=== PATIENT | female | born 1940 | race Caucasian/White ===

== ENCOUNTER 2016-03-23 01:37 | Emergency (ER) | payer MEDICARE ==
[~2016-03-23] VITALS: Ht 170.2 cm; Wt 77.1 kg
[~2016-03-23 01:37] MED LIST: CELE200C PO; CYAN10002 IJ; DONE5TAB7 PO; ESTR2TAB PO; FOLI1TAB16 PO; METH2.5T PO; MULT1CAP17 PO; RAMI5CAP PO; SIMV40TA3 PO
[2016-03-23 01:40] VITALS: BP 101/55
[2016-03-23] MEDS ORDERED: IV NORMAL SALINE 500ML BAG 500 ML IV ONE (02:15)
[2016-03-23] MEDS ORDERED: ONDANSETRON PF 4 MG/2 ML VIAL. IV ONE (02:15)
[2016-03-23 03:12] LABS: BASO # 0.2 x10^3/uL (0.0-0.2); BASO % 1 % (0-3); EOS % 0 % (0-3); HEMATOCRIT 45.2 % (36.0-47.0); HEMOGLOBIN 14.2 g/dL (12.0-15.5); LYMPH # 1.1 x10^3/uL (1.0-4.8); LYMPH % 7 % (24-48); MEAN CORPUSCULAR HEMOGLOBIN 32 pg (25-35); MEAN CORPUSCULAR HGB CONC 31 g/dL (31-37); MEAN CORPUSCULAR VOLUME 102 fL (79-100); MONO % 7 % (0-9); NEUT % 85 % (31-73); PLATELET COUNT 341 x10^3/uL (140-400); RED BLOOD COUNT 4.43 x10^6/uL (3.50-5.40); WHITE BLOOD COUNT 16.5 x10^3/uL (4.0-11.0)
--- NOTE | 2016-03-23 03:14 | PHYS DOC ---
Past Medical History Past Medical History: Arthritis, Dementia, High Cholesterol, Hypertension Additional Past Medical Histor: GOUT Past Surgical History: Cholecystectomy, Hysterectomy, Tonsillectomy Alcohol Use: None Drug Use: None Adult General Chief Complaint Chief Complaint: NAUSEA/VOMITING/DIARRHA HPI HPI 75-year-old female who states she's had worsening nausea and vomiting and a brief episode of syncope after having a large bowel movement at the [facility]. She denies any abdominal pain. She denies any fever or chills. Patient is currently alert and oriented and does not complain of any specific complaints at this time. She denies hitting her head. She denies any chest pain or shortness of breath. Review of Systems Review of Systems Constitutional: Denies fever or chills [] Eyes: Denies change in visual acuity, redness, or eye pain [] HENT: Denies nasal congestion or sore throat [] Respiratory: Denies cough or shortness of breath [] Cardiovascular: No additional information not addressed in HPI [] GI: Denies abdominal pain, has nausea, has vomiting, bloody stools or diarrhea [ ] : Denies dysuria or hematuria [] Musculoskeletal: Denies back pain or joint pain [] Integument: Denies rash or skin lesions [] Neurologic: Denies headache, focal weakness or sensory changes [] Endocrine: Denies polyuria or polydipsia [] Current Medications Current Medications Current Medications Medications (Trade) Dose Ordered Sig/Shirin Start Time Stop Time Status Last Admin Dose Admin Ondansetron HCl (Zofran) 4 mg 1X ONCE 03/23/16 02:15 03/23/16 02:16 DC 03/23/16 02:39 4 MG Sodium Chloride (Iv Sodium Chloride 0.9% 500ml Bag) 500 ml @ 500 mls/hr 1X ONCE 03/23/16 02:15 03/23/16 03:14 DC 03/23/16 02:40 500 MLS/HR Allergies Allergies Allergies Coded Allergies Type Severity Reaction Last Updated Verified No Known Drug Allergies 05/03/13 No Physical Exam Physical Exam Constitutional: Well developed, well nourished, no acute distress, non-toxic appearance. [] HENT: Normocephalic, atraumatic, bilateral external ears normal, oropharynx moist, no oral exudates, nose normal. [] Eyes: PERRLA, EOMI, conjunctiva normal, no discharge. [] Neck: Normal range of motion, no tenderness, supple, no stridor. [] Cardiovascular:Heart rate regular rhythm, no murmur [] Lungs & Thorax: Bilateral breath sounds clear to auscultation [] Abdomen: Bowel sounds normal, soft, no tenderness, no masses, no pulsatile masses. [] Skin: Warm, dry, no erythema, no rash. [] Back: No tenderness, no CVA tenderness. [] Extremities: No tenderness, no cyanosis, no clubbing, ROM intact, no edema. [] Neurologic: Alert and oriented X 3, normal motor function, normal sensory function, no focal deficits noted. [] Psychologic: Affect normal, judgement normal, mood normal. [] Current Patient Data Vital Signs Vital Signs Date Time Temp Pulse Resp B/P Pulse Ox O2 Delivery O2 Flow Rate FiO2 03/23/16 01:40 98.4 70 18 101/55 97 Room Air 98.4 Lab Values Laboratory Tests Test 03/23/16 02:55 Sodium Level 139mmol/L (136-145) Potassium Level 5.0mmol/L (3.5-5.1) Chloride Level 104mmol/L (98-107) Carbon Dioxide Level 15mmol/L (21-32) L Anion Gap 20 (6-14) H Blood Urea Nitrogen 31mg/dL (7-20) H Creatinine 1.4mg/dL (0.6-1.0) H Estimated GFR (Cockcroft-Gault) 36.6 Glucose Level 111mg/dL (70-99) H Calcium Level 9.1mg/dL (8.5-10.1) Laboratory Tests 03/23/16 02:55 EKG EKG EKG as interpreted by me shows a sinus rhythm with a rate of 68 bpm. There are no acute ST findings. Intervals are normal. There is no ectopy. Radiology/Procedures Radiology/Procedures [] Course & Med Decision Making Course & Med Decision Making Pertinent Labs and Imaging studies reviewed. (See chart for details) This 75-year-old female had a likely vagal event after having a large bowel movement. The plan will be to bolus the patient with IV fluids and nausea meds and check routine lab work. I will then give the patient meal and some drink. If her laboratory workup is unrevealing she will be safely to be discharged back to the [facility] from which [facility]. Her laboratory workup shows a slightly elevated BUN/creatinine ratio. For this an IV fluid bolus was given. The patient was successfully by mouth challenged with a meal and oral fluids. I'll be discharging her home with Zofran and have her follow up closely with her primary care doctor. I believe her symptoms are likely related to a vasovagal event. Dragon Disclaimer Dragon Disclaimer This electronic medical record was generated, in whole or in part, using a voice recognition dictation system. Departure Departure Impression: Primary Impression: Vaso vagal episode Additional Impression: Nausea & vomiting Disposition: HOME, SELF-CARE Condition: STABLE Referrals: GISSELLE CHO MD (PCP) Patient Instructions: Nausea and Vomiting, [id number] Additional Instructions: Please follow up with your primary doctor in the next 2-3 days. Take your zofran as prescribed. Continue to drink plenty of fluids. Return to the ER if you develop any worsening of your symptoms. Scripts Ondansetron Hcl (Zofran)4 Mg Tablet4 Mg PO BID PRN NAUSEA/VOMITING #10 TAB Prov:SADIA DELATORRE DO 03/23/16 Problem Qualifiers SADIA DELATORRE DO Mar 23, 2016 03:14
[2016-03-23 03:20] LABS: CALCIUM 9.1 mg/dL (8.5-10.1); CREATININE 1.4 mg/dL (0.6-1.0); GFR 36.6
[2016-03-23] MEDS ORDERED: ONDA4TAB7 PO (03:45)
[2016-03-23 04:31] LABS: PLT ESTIMATE ADEQUATE (ADEQUATE)
[2016-03-23 04:32] LABS: TOXIC VACUOLATION SLIGHT
[2016-03-23 04:34] LABS: ANISOCYTOSIS SLIGHT
--- NOTE | 2016-03-23 11:40 | EKG ---
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
== END 2016-03-23 04:35 | disposition home or self-care (01) ==
LOC: ER 01:37
DX: R11.2 Nausea with vomiting, unspecified (principal); R55 Syncope and collapse; F03.90 Unspecified dementia, unspecified severity, without behavioral disturbance, psychotic disturbance, mood disturbance, and anxiety; E78.00 Pure hypercholesterolemia, unspecified; I10 Essential (primary) hypertension; M19.90 Unspecified osteoarthritis, unspecified site; Z90.49 Acquired absence of other specified parts of digestive tract; Z90.710 Acquired absence of both cervix and uterus
CPT/HCPCS: 36415; 80048; 84484; 85007; 85027; 93005; 96361; 96374; 99285; J2405; J7040

== ENCOUNTER → 2016-12-24 | Outpatient (CLI) | payer MEDICARE ==
[~2016-12-24] MED LIST changes: +IOHEXOL 300 MG/ML 100ML VIAL. IV ONE; +ONDA4TAB7 PO
--- NOTE | 2016-12-24 14:04 | KCIC ---
Examination: CT chest with IV contrast HISTORY: History of atelectasis, pneumonia, sepsis. COMPARISON: None available TECHNIQUE: Axial CT images of the chest were performed with IV contrast. Coronal and sagittal reformats are performed Exposure: One or more of the following individualized dose reduction techniques were utilized for this examination: 1. Automated exposure control 2. Adjustment of the mA and/or kV according to patient size 3. Use of iterative reconstruction technique FINDINGS: The visualized thyroid gland grossly appears unremarkable The central airways are patent Coronary artery calcifications No evidence of pericardial effusion. There is some filling defects identified in the right upper lobe pulmonary arterial branches. Moderate size right pleural effusion and small left pleural effusion identified. Consolidation changes identified in the right lung base likely pneumonia or atelectasis. Mild left lung base airspace opacities likely atelectasis or infiltrate. Mild decreased attenuation noted throughout the liver likely hepatic steatosis. The visualized adrenal glands grossly appears unremarkable Small hiatal hernia. Moderate degenerative changes thoracic spine. IMPRESSION: 1. Some filling defects identified in the right upper lobe pulmonary arterial branches and possibly the left upper lobe pulmonary arterial branches, suspicious for pulmonary emboli, please note that this is not a CT angiogram. Recommend CT angiogram for further evaluation. 2. Moderate size right pleural effusion and small left pleural effusion with bibasilar lung consolidation changes likely pneumonia or atelectasis. 3. Coronary artery calcifications. Report called to ordering physician at time of dictation. Electronically signed by: Evelio Bustos MD (12/24/2016 2:01 PM) [id number]
== END | disposition home or self-care (01) ==
LOC: KCIC CT 10:15
PROVIDERS: ATTEND Family Medicine
DX: I25.10 Atherosclerotic heart disease of native coronary artery without angina pectoris (principal); J44.9 Chronic obstructive pulmonary disease, unspecified; J18.1 Lobar pneumonia, unspecified organism; J90 Pleural effusion, not elsewhere classified; R93.49 Abnormal radiologic findings on diagnostic imaging of other urinary organs; Z87.01 Personal history of pneumonia (recurrent)
CPT/HCPCS: 71260; 82565; Q9967

== ENCOUNTER → 2016-12-31 | Outpatient (CLI) | payer MEDICARE ==
[~2016-12-31] MED LIST changes: +CONTRAST GIVEN MC PRN; -IOHEXOL 300 MG/ML 100ML VIAL. IV ONE; +IOHEXOL 300 MG/ML 75 ML VIAL IV ONE
--- NOTE | 2016-12-31 10:06 | RAD ---
Examination: CT angiogram of the chest. History: History of recent pulmonary emboli comparison: 12/24/2016 Technique: CT angiogram mismatches were performed with IV contrast. Coronal sagittal 3-D MIP reformats are performed PQRS Compliance Statement: One or more of the following individualized dose reduction techniques were utilized for this examination: 1. Automated exposure control 2. Adjustment of the mA and/or kV according to patient size 3. Use of iterative reconstruction technique Findings: The visualized thyroid gland grossly appears unremarkable. Diffuse coronary artery calcifications identified. Mild cardiomegaly. There is no evidence of filling defect identified in the main pulmonary artery trunk. There is filling defect identified in the distal right lobar pulmonary arterial branch extending into the right upper lobe distal pulmonary arterial branches is best visualized from series 3 image 44 2 image 37 Examination limited due to mild motion artifact. There is no evidence of filling defect identified in the left pulmonary artery and its branches. The evaluation of distal segmental branches is limited due to motion artifact. Moderate size right pleural effusion with right lung base consolidation likely pneumonia or atelectasis. Small left pleural effusion is identified. Linear airspace opacity identified in the right middle lobe of the lung likely atelectasis or infiltrate. The visualized spleen, adrenals grossly appears unremarkable. There is mild decreased attenuation noted throughout the liver likely hepatic steatosis. Small hiatal hernia. Moderate degenerative changes thoracic spine. Impression: 1. Filling defects identified in the distal right pulmonary artery extending into the peripheral branches could be age indeterminate pulmonary emboli. Examination limited due to motion artifact. 2. Moderate right, small left pleural effusions with right lung base consolidation likely pneumonia or atelectasis. Mild linear airspace opacity identified in the right middle lobe of the lung likely atelectasis or infiltrate. 3. Coronary artery calcifications. 4. Mild hepatic steatosis. 5. Small hiatal hernia.
== END | disposition home or self-care (01) ==
LOC: CT 08:35
PROVIDERS: ATTEND Family Medicine
DX: I26.99 Other pulmonary embolism without acute cor pulmonale (principal); I25.10 Atherosclerotic heart disease of native coronary artery without angina pectoris; K44.9 Diaphragmatic hernia without obstruction or gangrene; J90 Pleural effusion, not elsewhere classified; Z86.711 Personal history of pulmonary embolism
CPT/HCPCS: 71275; Q9967

== ENCOUNTER 2018-06-06 17:53 | Inpatient (IN) | payer MEDICARE, OTHER ==
[~2018-06-06] VITALS: Ht 165.1 cm; Wt 88.5 kg
[~2018-06-06 17:53] MED LIST changes: +ACET325T9 PO; +ALLO300T PO; +APIX5TAB PO; +ASPI-630 PO; +CHOL10003 PO; -CONTRAST GIVEN MC PRN; +CRAN400T5 PO; +DONE10TA7 PO; +ESCITALOPRAM OX20 MG PO; +FURO-68 PO; +GABA300C18 PO; -IOHEXOL 300 MG/ML 75 ML VIAL IV ONE; +IPRA3AMP29 NEB; +MAGN400T3 PO; +MELA3TAB2 PO; +POTA20TA82 PO; -RAMI5CAP PO; +RAMI5CAP50 PO; +RISP0.2519 PO
[2018-06-06 18:46] LABS: BILIRUBIN,URINE NEGATIVE (NEG); CLARITY,URINE TURBID; COLOR,URINE YELLOW
[2018-06-06 18:47] LABS: BACTERIA,URINE MANY /HPF (0-FEW); HYALINE CASTS, URINE FEW /HPF; NITRITE,URINE POSITIVE (NEG); PROTEIN,URINE 100 mg/dL (NEG-TRACE); RBC,URINE OCC /HPF (0-2); SQUAMOUS EPITHELIAL CELL,UR FEW /LPF; UROBILINOGEN,URINE 0.2 mg/dL (0.2 mg/dL); WBC,URINE TNTC /HPF (0-4)
--- NOTE | 2018-06-06 18:50 | PHYS DOC ---
Past Medical History Past Medical History: Arthritis, Dementia, High Cholesterol, Hypertension Additional Past Medical Histor: GOUT Past Surgical History: Cholecystectomy, Hysterectomy, Tonsillectomy Alcohol Use: None Drug Use: None Adult General Chief Complaint Chief Complaint: OTHER COMPLAINTS HPI HPI Patient is a 77 year old was sent here from the care home because she has been confused, sleeping more for the last two days. Patient otherwise, denied any problem. She was able to talk and answer questions appropriately. She denied any chest pain, no abdominal pain, no nausea or vomiting. Patient denied any headache, no fever. She denied any injury. long term reported that she has not been eating much either. Review of Systems Review of Systems Constitutional: Denies fever or chills [] Eyes: Denies change in visual acuity, redness, or eye pain [] HENT: Denies nasal congestion or sore throat [] Respiratory: Denies cough or shortness of breath [] Cardiovascular: No additional information not addressed in HPI [] GI: Denies abdominal pain, nausea, vomiting, bloody stools or diarrhea [] : Denies dysuria or hematuria [] Musculoskeletal: Denies back pain or joint pain [] Integument: Denies rash or skin lesions [] Neurologic: Denies headache, focal weakness or sensory changes [] Endocrine: Denies polyuria or polydipsia [] All other systems were reviewed and found to be within normal limits, except as documented in this note. Current Medications Current Medications Current Medications Medications (Trade) Dose Ordered Sig/Shirin Start Time Stop Time Status Last Admin Dose Admin Ceftriaxone Sodium (Rocephin) 1 gm 1X ONCE 06/06/18 19:15 06/06/18 19:16 DC 06/06/18 19:48 1 GM Allergies Allergies Allergies Coded Allergies Type Severity Reaction Last Updated Verified No Known Drug Allergies 05/03/13 No Physical Exam Physical Exam Constitutional: Well developed, well nourished, no acute distress, non-toxic appearance. Patient appeared somnolent. HENT: Normocephalic, atraumatic, bilateral external ears normal, oropharynx is dried, no oral exudates, nose normal. [] Eyes: PERRLA, EOMI, conjunctiva normal, no discharge. [] Neck: Normal range of motion, no tenderness, supple, no stridor. [] Cardiovascular:Heart rate regular rhythm, no murmur [] Lungs & Thorax: Bilateral breath sounds clear to auscultation [] Abdomen: Bowel sounds normal, soft, no tenderness, no masses, no pulsatile masses. [] Skin: Warm, dry, no erythema, no rash. [] Back: No tenderness, no CVA tenderness. [] Extremities: No tenderness, no cyanosis, no clubbing, ROM intact, no edema. [] Neurologic: Alert and oriented to place and person, normal motor function, normal sensory function, no focal deficits noted. Psychologic: Affect normal, judgement normal, mood normal. [] Current Patient Data Vital Signs Vital Signs Date Time Temp Pulse Resp B/P (MAP) Pulse Ox O2 Delivery O2 Flow Rate FiO2 06/06/18 19:58 58 18 110/62 (78) 99 Nasal Cannula 3.0 06/06/18 17:53 97.7 97.7 Lab Values Laboratory Tests Test 06/06/18 18:25 06/06/18 20:00 Urine Collection Type U cath Urine Color Yellow Urine Clarity Turbid Urine pH 6.0 Urine Specific [place] >=1.030 Urine Protein 100 mg/dL (NEG-TRACE) Urine Glucose (UA) Negative mg/dL (NEG) Urine Ketones (Stick) Negative mg/dL (NEG) Urine Blood Large (NEG) Urine Nitrite Positive (NEG) Urine Bilirubin Negative (NEG) Urine Urobilinogen Dipstick 0.2 mg/dL (0.2 mg/dL) Urine Leukocyte Esterase Large (NEG) Urine RBC Occ /HPF (0-2) Urine WBC Tntc /HPF (0-4) Urine Squamous Epithelial Cells Few /LPF Urine Bacteria Many /HPF (0-FEW) Urine Hyaline Casts Few /HPF Urine Mucus Slight /LPF White Blood Count 10.5 x10^3/uL (4.0-11.0) Red Blood Count 4.17 x10^6/uL (3.50-5.40) Hemoglobin 12.9 g/dL (12.0-15.5) Hematocrit 39.6 % (36.0-47.0) Mean Corpuscular Volume 95 fL (79-100) Mean Corpuscular Hemoglobin 31 pg (25-35) Mean Corpuscular Hemoglobin Concent 33 g/dL (31-37) Red Cell Distribution Width 15.8 % (11.5-14.5) H Platelet Count 358 x10^3/uL (140-400) Neutrophils (%) (Auto) 77 % (31-73) H Lymphocytes (%) (Auto) 14 % (24-48) L Monocytes (%) (Auto) 7 % (0-9) Eosinophils (%) (Auto) 1 % (0-3) Basophils (%) (Auto) 0 % (0-3) Neutrophils # (Auto) 8.2 x10^3uL (1.8-7.7) H Lymphocytes # (Auto) 1.5 x10^3/uL (1.0-4.8) Monocytes # (Auto) 0.7 x10^3/uL (0.0-1.1) Eosinophils # (Auto) 0.1 x10^3/uL (0.0-0.7) Basophils # (Auto) 0.0 x10^3/uL (0.0-0.2) Sodium Level 144 mmol/L (136-145) Potassium Level 4.2 mmol/L (3.5-5.1) Chloride Level 102 mmol/L (98-107) Carbon Dioxide Level 30 mmol/L (21-32) Anion Gap 12 (6-14) Blood Urea Nitrogen 20 mg/dL (7-20) Creatinine 1.5 mg/dL (0.6-1.0) H Estimated GFR (Cockcroft-Gault) 33.6 BUN/Creatinine Ratio 13 (6-20) Glucose Level 125 mg/dL (70-99) H Calcium Level 8.6 mg/dL (8.5-10.1) Total Bilirubin 0.4 mg/dL (0.2-1.0) Aspartate Amino Transferase (AST) 20 U/L (15-37) Alanine Aminotransferase (ALT) 20 U/L (14-59) Alkaline Phosphatase 117 U/L (46-116) H Total Protein 7.5 g/dL (6.4-8.2) Albumin 2.4 g/dL (3.4-5.0) L Albumin/Globulin Ratio 0.5 (1.0-1.7) L Laboratory Tests 06/06/18 20:00 Laboratory Tests 06/06/18 20:00 EKG EKG [] Radiology/Procedures Radiology/Procedures [][facility] [address] [place] [address] IMAGING REPORT Signed PATIENT: JANEY MILLIGAN ACCOUNT: [id number] : 1940 LOCATION: ER AGE: 77 SEX: F EXAM STATUS: REG ER ORD. PHYSICIAN: THELMA FERNANDEZ DO REASON: confusion, AMS, on Eliquis PROCEDURE: CT HEAD WO CONTRAST Examination: CT HEAD WO CONTRAST History: confusion, AMS, on Eliquis Comparison/Correlation: 03/27/2016 CT head without contrast Findings: Axial images of the head were obtained without contrast. Atrophy is present. Bifrontal subdural hygromas are present. No intracranial hemorrhage, then shift, or mass effect. Bilateral maxillary sinus mucous retention cysts noted. Patchy opacification of ethmoid air cells noted. No depressed fracture or bony destructive finding. Impression: Chronic paranasal sinusitis. No intracranial hemorrhage. PQRS Compliance Statement: One or more of the following individualized dose reduction techniques were utilized for this examination: 1. Automated exposure control 2. Adjustment of the mA and/or kV according to patient size 3. Use of iterative reconstruction technique Electronically signed by: Tamir Bangura MD (06/06/2018 7:23 PM) [facility] DICTATED and SIGNED BY: TAMIR BANGURA MD DATE: 06/06/181922 Course & Med Decision Making Course & Med Decision Making Pertinent Labs and Imaging studies reviewed. (See chart for details) [] Dragon Disclaimer Dragon Disclaimer This electronic medical record was generated, in whole or in part, using a voice recognition dictation system. Departure Departure Impression: Primary Impression: UTI (urinary tract infection) Additional Impression: Altered mental status Disposition: ADMITTED INPATIENT Admitting Physician: Karmen Sánchez Condition: STABLE Referrals: JOSE M CALHOUN (PCP) Problem Qualifiers THELMA FERNANDEZ DO Jun 06, 2018 18:49
[2018-06-06] MEDS ORDERED: cefTRIAXone IV Push 1 GM VIAL. IVP ONE (19:15)
--- NOTE | 2018-06-06 19:26 | RAD ---
Examination: CT HEAD WO CONTRAST History: confusion, AMS, on Eliquis Comparison/Correlation: 03/27/2016 CT head without contrast Findings: Axial images of the head were obtained without contrast. Atrophy is present. Bifrontal subdural hygromas are present. No intracranial hemorrhage, then shift, or mass effect. Bilateral maxillary sinus mucous retention cysts noted. Patchy opacification of ethmoid air cells noted. No depressed fracture or bony destructive finding. Impression: Chronic paranasal sinusitis. No intracranial hemorrhage. PQRS Compliance Statement: One or more of the following individualized dose reduction techniques were utilized for this examination: 1. Automated exposure control 2. Adjustment of the mA and/or kV according to patient size 3. Use of iterative reconstruction technique Electronically signed by: Tamir Kessler MD (06/06/2018 7:23 PM) [facility]
[2018-06-06 20:07] LABS: BASO % 0 % (0-3); EOS # 0.1 x10^3/uL (0.0-0.7); EOS % 1 % (0-3); HEMATOCRIT 39.6 % (36.0-47.0); HEMOGLOBIN 12.9 g/dL (12.0-15.5); LYMPH # 1.5 x10^3/uL (1.0-4.8); LYMPH % 14 % (24-48); MEAN CORPUSCULAR HEMOGLOBIN 31 pg (25-35); MEAN CORPUSCULAR HGB CONC 33 g/dL (31-37); MEAN CORPUSCULAR VOLUME 95 fL (79-100); MONO # 0.7 x10^3/uL (0.0-1.1); MONO % 7 % (0-9); NEUT # 8.2 x10^3uL (1.8-7.7); NEUT % 77 % (31-73); PLATELET COUNT 358 x10^3/uL (140-400); RED BLOOD COUNT 4.17 x10^6/uL (3.50-5.40); RED CELL DISTRIBUTION WIDTH 15.8 % (11.5-14.5); WHITE BLOOD COUNT 10.5 x10^3/uL (4.0-11.0)
[2018-06-06 20:20] LABS: CALCIUM 8.6 mg/dL (8.5-10.1); CREATININE 1.5 mg/dL (0.6-1.0); GFR 33.6; POTASSIUM 4.2 mmol/L (3.5-5.1)
[2018-06-06 20:25] LABS: ALBUMIN 2.4 g/dL (3.4-5.0); ALBUMIN/GLOBULIN RATIO 0.5 (1.0-1.7); TOTAL BILIRUBIN 0.4 mg/dL (0.2-1.0); TOTAL PROTEIN 7.5 g/dL (6.4-8.2)
[2018-06-06] MEDS ORDERED: MORPHINE SULFATE 2 MG/ML VIAL. IV PRN (20:30)
[2018-06-06] MEDS ORDERED: TEMAZEPAM 7.5 MG CAPSULE PO PRN (20:30)
[2018-06-06] MEDS ORDERED: ACETAMINOPHEN 325 MG TABLET. PO PRN ×3 (20:30→20:45)
[2018-06-06] MEDS ORDERED: oxyCODONE IR 5 MG TABLET PO PRN (20:30)
[2018-06-06] MEDS ORDERED: CALCIUM CARBONATE 500 MG TAB.CHEW PO PRN (20:30)
[2018-06-06] MEDS ORDERED: BISACODYL 10 MG SUPP.RECT. PR PRN (20:30)
[2018-06-06] MEDS ORDERED: ONDANSETRON PF 4 MG/2 ML VIAL. IV PRN ×2 (20:30→20:45)
[2018-06-06] MEDS ORDERED: IV NORMAL SALINE 1000ML BAG 1,000 ML IV SCH (20:45)
[2018-06-06] MEDS ORDERED: NON FORMULARY ITEM (Melatonin 2 TAB) PO SCH (21:00)
[2018-06-06] MEDS ORDERED: CRANBERRY FRUIT 400 MG PO SCH (21:00)
[2018-06-06] MEDS: DOCUSATE SODIUM 100 MG CAPSULE. PO SCH (21:00)
[2018-06-06] MEDS: GABAPENTIN 300 MG CAPSULE. PO SCH (21:00)
--- NOTE | 2018-06-06 22:00 | NUR ---
The patient, JANEY MILLIGAN, 77 y/o, F admitted by CHELSY MONTENEGRO MD, was given written information regarding hospital policies, unit procedures and contact persons. Patient arrived via ED bed assisted by ED staff member. Valuables were checked and noted. No family present at patient bedside at this time. The patient is drowsy but wakes to name and answers questions. The patient is alert to self and place at this time. The patient denies pain or any other needs. This RN will continue to monitor the patient at this time.
[2018-06-06 22:15] VITALS: BP 98/40
[2018-06-06] MEDS: IPRATRPIUM/ALBUTEROL 0.5/2.5MG 3 ML NEBU. NEB SCH (22:45)
[2018-06-06] MEDS: IV 1/2 NORMAL SALINE 1,000 ML IV SCH (23:28)
--- NOTE | 2018-06-06 23:30 | NUR ---
This RN attempted to reach [facility], for further information on the patient's medical history and home medications. This RN called the number listed on the "face sheet" from [facility], , this RN was told that the number belonged to [facility]. this RN stated that a patient was received from [facility] and that this number and address was listed on the patient's "face sheet" that was brought with the patient from the [facility]. The RN at [facility] assured this RN that they had not sent any of their residents to the hospital. The [facility] RN suggested calling the [facility] at [phone]. This RN called the [facility] and they stated that none of their residents were sent to the hospital today either, the patient's name and birthday were not shared with [facility]. This RN then contacted the daughter to clarify which [facility] the patient resided at and asked for the phone number she had for [place], Lily, the patient's daughter and EDY, informed me that she has been at [facility] for two years and has not stayed at [facility] or [facility], despite the information given on the [facility] "Face Sheet". The daughter gave this RN the number [phone] for [facility]. This RN attempted to contact the [place] with the number provided by the daughter but this RN was unable to get through after multiple attempts. This RN will attempt to call in the morning and will continue to monitor the patient at this time.
[2018-06-07] MEDS: ANTI-COAG MONITOR BY PHARMACY. MC PRN (00:40)
[2018-06-07 03:04] VITALS: BP 117/50
[2018-06-07 05:46] LABS: BASO % 0 % (0-3); EOS # 0.1 x10^3/uL (0.0-0.7); EOS % 1 % (0-3); HEMATOCRIT 37.1 % (36.0-47.0); HEMOGLOBIN 12.3 g/dL (12.0-15.5); LYMPH # 1.3 x10^3/uL (1.0-4.8); LYMPH % 13 % (24-48); MEAN CORPUSCULAR HEMOGLOBIN 32 pg (25-35); MEAN CORPUSCULAR HGB CONC 33 g/dL (31-37); MEAN CORPUSCULAR VOLUME 95 fL (79-100); MONO # 0.5 x10^3/uL (0.0-1.1); MONO % 5 % (0-9); NEUT # 8.2 x10^3uL (1.8-7.7); NEUT % 81 % (31-73); PLATELET COUNT 315 x10^3/uL (140-400); RED BLOOD COUNT 3.91 x10^6/uL (3.50-5.40); RED CELL DISTRIBUTION WIDTH 15.9 % (11.5-14.5); WHITE BLOOD COUNT 10.2 x10^3/uL (4.0-11.0)
[2018-06-07 05:57] LABS: CALCIUM 8.4 mg/dL (8.5-10.1); CREATININE 1.2 mg/dL (0.6-1.0); GFR 43.4
[2018-06-07 07:00] VITALS: BP 112/42
[2018-06-07] MEDS: IPRATRPIUM/ALBUTEROL 0.5/2.5MG 3 ML NEBU. NEB SCH ×4 (07:21→19:47)
[2018-06-07 11:00] VITALS: BP 117/42
--- NOTE | 2018-06-07 11:11 | HP ---
ADMIT DATE: 06/06/2018 CHIEF COMPLAINT: Mental status change. HISTORY OF PRESENT ILLNESS: The patient is a pleasant 77-year-old female who resides in a skilled nursing. She developed mental status change. She has been sleeping more, was confused. She has not been eating or drinking, brought to the ER for evaluation. We noted that her labs showed her to have a urinary tract infection. She has got leukocyte esterase and too numerous to count white cells. She has now been admitted for IV fluids and IV antibiotics. PAST MEDICAL HISTORY: Previous UTIs, arthritis, dementia, hypertension, hyperlipidemia and gout. PAST SURGICAL HISTORY: Cholecystectomy, hysterectomy and tonsillectomy. ALLERGIES: None. FAMILY HISTORY: Coronary artery disease. SOCIAL HISTORY: She lives in a skilled nursing. She does not drink, smoke or take drugs. MEDICATIONS: Reviewed, please refer to the MRAD. She is on methotrexate, DuoNeb, Eliquis, simvastatin, aspirin, Tylenol, gabapentin, Risperdal, potassium, Lasix, magnesium, estradiol, vitamin and allopurinol. REVIEW OF SYSTEMS: Unable to obtain, the patient is too confused. PHYSICAL EXAMINATION: VITAL SIGNS: Temperature afebrile, pulse 92, respirations 18 and blood pressure 142/90. GENERAL: She is pleasantly confused. HEART: Normal S1 and S2. LUNGS: Clear. ABDOMEN: Soft. EXTREMITIES: Trace edema. SKIN: No rash. ENDOCRINE: No thyromegaly. LYMPHATICS: No cervical nodes. HEMATOPOIETIC: No bruises. PSYCHIATRIC: She has a flat affect. LABORATORY DATA: Hematology is normal. Electrolytes normal other than a creatinine of 1.5. Urinalysis has large amount of leukocyte esterase and too numerous to count white cells. ASSESSMENT AND PLAN: Metabolic encephalopathy secondary to urinary tract infection. The patient will be admitted. We will start IV fluids, IV antibiotics, home medications. Deep venous thrombosis prophylaxis. Full code. Frequent labs, physical therapy, occupational therapy, IV Zofran, IV ceftriaxone, p.r.n. Tylenol. PAL ROSEN DO DR: CB/jose juan JOB#: [id number] / [id number]
[2018-06-07] MEDS: IV 1/2 NORMAL SALINE 1,000 ML IV SCH ×2 (11:14→18:10)
[2018-06-07] MEDS: GABAPENTIN 300 MG CAPSULE. PO SCH ×2 (11:14→20:10)
[2018-06-07] MEDS: APIXABAN 5 MG TABLET. PO SCH ×2 (11:15→20:09)
[2018-06-07] MEDS: CITALOPRAM 20 MG TABLET. PO SCH (11:15)
[2018-06-07] MEDS: DONEPEZIL HCL 10 MG TABLET. PO SCH (11:15)
[2018-06-07] MEDS: FUROSEMIDE 40 MG TABLET. PO SCH (11:15)
[2018-06-07] MEDS: DOCUSATE SODIUM 100 MG CAPSULE. PO SCH ×2 (11:15→20:09)
[2018-06-07] MEDS: MAGNESIUM OXIDE 400 MG TABLET PO SCH ×3 (11:15→20:09)
[2018-06-07] MEDS: CHOLECALCIFEROL (VITAMIN D3) 1,000 UNIT TABLET PO SCH ×2 (11:16→20:10)
[2018-06-07] MEDS: FOLIC ACID 1 MG TABLET. PO SCH (11:16)
[2018-06-07] MEDS: risperiDONE 0.25 MG TABLET. PO SCH (11:16)
[2018-06-07] MEDS: ASPIRIN CHEWABLE 81 MG TABLET. PO SCH (11:16)
[2018-06-07] MEDS: ALLOPURINOL 300 MG TABLET. PO SCH (11:16)
[2018-06-07] MEDS: ESTRADIOL 1 MG TABLET. PO SCH (11:16)
[2018-06-07] MEDS: POTASSIUM CHLORIDE 20 MEQ TABLET.ER. PO SCH (13:12)
[2018-06-07 15:00] VITALS: BP 109/53
[2018-06-07 19:00] VITALS: BP 126/73
[2018-06-07] MEDS ORDERED: cefTRIAXone IV Push 1 GM VIAL. IVP SCH (20:00)
[2018-06-07] MEDS: LACTOBACILLUS RHAMNOSUS GG 1 CAPSULE. PO SCH (20:09)
[2018-06-07] MEDS: SIMVASTATIN 40 MG TABLET. PO SCH (20:10)
[2018-06-07 22:31] VITALS: BP 130/55
--- NOTE | 2018-06-07 23:18 | RAD ---
Indication:COUGH, CONGESTION TECHNIQUE:Portable AP chest X-ray COMPARISON:12/09/2017 FINDINGS: Patient is rotated to the left side limiting optimal evaluation. Heart is normal in size. Bilateral interstitial opacities are seen. No pneumothorax or large pleural effusion. Visualized bony thorax is within normal limits. IMPRESSION: Bilateral interstitial opacities may be secondary to atypical/viral infection. Electronically signed by: Abhi Solis DO (06/07/2018 11:16 PM) [facility]
[2018-06-08] MEDS: IV 1/2 NORMAL SALINE 1,000 ML IV SCH ×2 (01:35→13:20)
[2018-06-08 03:00] VITALS: BP 134/54
[2018-06-08 03:55] LABS: BASO % 0 % (0-3); EOS # 0.1 x10^3/uL (0.0-0.7); EOS % 2 % (0-3); HEMATOCRIT 35.4 % (36.0-47.0); HEMOGLOBIN 11.3 g/dL (12.0-15.5); LYMPH # 1.5 x10^3/uL (1.0-4.8); LYMPH % 18 % (24-48); MEAN CORPUSCULAR HEMOGLOBIN 30 pg (25-35); MEAN CORPUSCULAR HGB CONC 32 g/dL (31-37); MEAN CORPUSCULAR VOLUME 95 fL (79-100); MONO # 0.3 x10^3/uL (0.0-1.1); MONO % 4 % (0-9); NEUT # 6.4 x10^3uL (1.8-7.7); NEUT % 76 % (31-73); PLATELET COUNT 330 x10^3/uL (140-400); RED BLOOD COUNT 3.73 x10^6/uL (3.50-5.40); RED CELL DISTRIBUTION WIDTH 15.7 % (11.5-14.5); WHITE BLOOD COUNT 8.4 x10^3/uL (4.0-11.0)
[2018-06-08 04:12] LABS: CALCIUM 8.1 mg/dL (8.5-10.1); CREATININE 1.1 mg/dL (0.6-1.0); POTASSIUM 4.3 mmol/L (3.5-5.1)
[2018-06-08 07:00] VITALS: BP 128/53
[2018-06-08] MEDS: GABAPENTIN 300 MG CAPSULE. PO SCH ×2 (08:17→20:30)
[2018-06-08] MEDS: CHOLECALCIFEROL (VITAMIN D3) 1,000 UNIT TABLET PO SCH ×2 (08:17→20:30)
[2018-06-08] MEDS: LACTOBACILLUS RHAMNOSUS GG 1 CAPSULE. PO SCH ×2 (08:18→20:30)
[2018-06-08] MEDS: DONEPEZIL HCL 10 MG TABLET. PO SCH (08:18)
[2018-06-08] MEDS: CITALOPRAM 20 MG TABLET. PO SCH (08:18)
[2018-06-08] MEDS: POTASSIUM CHLORIDE 20 MEQ TABLET.ER. PO SCH (08:18)
[2018-06-08] MEDS: APIXABAN 5 MG TABLET. PO SCH ×2 (08:18→20:30)
[2018-06-08] MEDS: ALLOPURINOL 300 MG TABLET. PO SCH (08:18)
[2018-06-08] MEDS: FUROSEMIDE 40 MG TABLET. PO SCH (08:18)
[2018-06-08] MEDS: ASPIRIN CHEWABLE 81 MG TABLET. PO SCH (08:18)
[2018-06-08] MEDS: ESTRADIOL 1 MG TABLET. PO SCH (08:19)
[2018-06-08] MEDS: DOCUSATE SODIUM 100 MG CAPSULE. PO SCH ×2 (08:19→20:30)
[2018-06-08] MEDS: MAGNESIUM OXIDE 400 MG TABLET PO SCH ×3 (08:19→20:30)
[2018-06-08] MEDS: risperiDONE 0.25 MG TABLET. PO SCH (08:19)
[2018-06-08] MEDS: FOLIC ACID 1 MG TABLET. PO SCH (08:19)
[2018-06-08] MEDS: IPRATRPIUM/ALBUTEROL 0.5/2.5MG 3 ML NEBU. NEB SCH ×4 (08:35→19:12)
--- NOTE | 2018-06-08 08:57 | NUR ---
SW following pt for anticipated dc needs. Chart reviewed. CHUCKY spoke with pt's daughter, Lily, phone; [phone] about pt's residency. Pt is a LT resident at [facility], phone: [phone], . Pt's daughter, Lily and Ana from [facility] confirmed plan of return upon dc. CHUCKY will continue to follow pt. Addendum: 06/08/18 at 1518 by FLAVIA LOCKE manufacturing planner, Melinda will continue to follow pt.
--- NOTE | 2018-06-08 10:55 | PDOC ---
PROGRESS NOTES Chief Complaint Chief Complaint UTI Pneumonia Metabolic encephalopathy Dementia History of Present Illness History of Present Illness Patient was resting comfortably in her chair today. She says she feels well. She presents with a mild cough. Vitals Vitals Vital Signs Date Time Temp Pulse Resp B/P (MAP) Pulse Ox O2 Delivery O2 Flow Rate FiO2 06/08/18 08:35 97 Nasal Cannula 2.0 06/08/18 07:00 97.8 55 18 128/53 (78) 97.8 Physical Exam General: Alert, Oriented X3, Cooperative, No acute distress Heart: Regular rate, Normal S1, Normal S2, No murmurs Lungs: Clear Abdomen: Soft, No tenderness, No masses Extremities: No clubbing, No edema, Normal pulses, No tenderness/swelling Skin: No rashes, No breakdown, No significant lesion Labs LABS Laboratory Tests Test 06/08/18 03:20 White Blood Count 8.4 x10^3/uL (4.0-11.0) Red Blood Count 3.73 x10^6/uL (3.50-5.40) Hemoglobin 11.3 g/dL (12.0-15.5) Hematocrit 35.4 % (36.0-47.0) Mean Corpuscular Volume 95 fL (79-100) Mean Corpuscular Hemoglobin 30 pg (25-35) Mean Corpuscular Hemoglobin Concent 32 g/dL (31-37) Red Cell Distribution Width 15.7 % (11.5-14.5) Platelet Count 330 x10^3/uL (140-400) Neutrophils (%) (Auto) 76 % (31-73) Lymphocytes (%) (Auto) 18 % (24-48) Monocytes (%) (Auto) 4 % (0-9) Eosinophils (%) (Auto) 2 % (0-3) Basophils (%) (Auto) 0 % (0-3) Neutrophils # (Auto) 6.4 x10^3uL (1.8-7.7) Lymphocytes # (Auto) 1.5 x10^3/uL (1.0-4.8) Monocytes # (Auto) 0.3 x10^3/uL (0.0-1.1) Eosinophils # (Auto) 0.1 x10^3/uL (0.0-0.7) Basophils # (Auto) 0.0 x10^3/uL (0.0-0.2) Sodium Level 141 mmol/L (136-145) Potassium Level 4.3 mmol/L (3.5-5.1) Chloride Level 105 mmol/L (98-107) Carbon Dioxide Level 29 mmol/L (21-32) Anion Gap 7 (6-14) Blood Urea Nitrogen 15 mg/dL (7-20) Creatinine 1.1 mg/dL (0.6-1.0) Estimated GFR (Cockcroft-Gault) 48.0 Glucose Level 102 mg/dL (70-99) Calcium Level 8.1 mg/dL (8.5-10.1) Review of Systems Review of Systems Patient denies N/V, SOB, Chest pain, fevers, chills, abdominal pain, diarrhea. Assessment and Plan Assessmemt and Plan Problems Medical Problems: (1) Altered mental status Status: Acute (2) UTI (urinary tract infection) Status: Acute Assessment: UTI Pneumonia Metabolic encephalopathy Dementia Plan: Continue ceftriaxone Continue IV fluids Continue IV zofran Continue home meds Tylenol PRN DVT prophylaxis PT/OT F/u labs Comment Review of Relevant I have reviewed the following items jane (where applicable) has been applied. Labs Laboratory Tests Test 06/06/18 18:25 06/06/18 20:00 06/06/18 22:13 06/07/18 05:05 Urine Collection Type U cath Urine Color Yellow Urine Clarity Turbid Urine pH 6.0 Urine Specific [place] >=1.030 Urine Protein 100 mg/dL (NEG-TRACE) Urine Glucose (UA) Negative mg/dL (NEG) Urine Ketones (Stick) Negative mg/dL (NEG) Urine Blood Large (NEG) Urine Nitrite Positive (NEG) Urine Bilirubin Negative (NEG) Urine Urobilinogen Dipstick 0.2 mg/dL (0.2 mg/dL) Urine Leukocyte Esterase Large (NEG) Urine RBC Occ /HPF (0-2) Urine WBC Tntc /HPF (0-4) Urine Squamous Epithelial Cells Few /LPF Urine Bacteria Many /HPF (0-FEW) Urine Hyaline Casts Few /HPF Urine Mucus Slight /LPF White Blood Count 10.5 x10^3/uL (4.0-11.0) Red Blood Count 4.17 x10^6/uL (3.50-5.40) Hemoglobin 12.9 g/dL (12.0-15.5) Hematocrit 39.6 % (36.0-47.0) Mean Corpuscular Volume 95 fL (79-100) Mean Corpuscular Hemoglobin 31 pg (25-35) Mean Corpuscular Hemoglobin Concent 33 g/dL (31-37) Red Cell Distribution Width 15.8 % (11.5-14.5) Platelet Count 358 x10^3/uL (140-400) Neutrophils (%) (Auto) 77 % (31-73) Lymphocytes (%) (Auto) 14 % (24-48) Monocytes (%) (Auto) 7 % (0-9) Eosinophils (%) (Auto) 1 % (0-3) Basophils (%) (Auto) 0 % (0-3) Neutrophils # (Auto) 8.2 x10^3uL (1.8-7.7) Lymphocytes # (Auto) 1.5 x10^3/uL (1.0-4.8) Monocytes # (Auto) 0.7 x10^3/uL (0.0-1.1) Eosinophils # (Auto) 0.1 x10^3/uL (0.0-0.7) Basophils # (Auto) 0.0 x10^3/uL (0.0-0.2) Sodium Level 144 mmol/L (136-145) 143 mmol/L (136-145) Potassium Level 4.2 mmol/L (3.5-5.1) 4.0 mmol/L (3.5-5.1) Chloride Level 102 mmol/L (98-107) 106 mmol/L (98-107) Carbon Dioxide Level 30 mmol/L (21-32) 30 mmol/L (21-32) Anion Gap 12 (6-14) 7 (6-14) Blood Urea Nitrogen 20 mg/dL (7-20) 18 mg/dL (7-20) Creatinine 1.5 mg/dL (0.6-1.0) 1.2 mg/dL (0.6-1.0) Estimated GFR (Cockcroft-Gault) 33.6 43.4 BUN/Creatinine Ratio 13 (6-20) Glucose Level 125 mg/dL (70-99) 112 mg/dL (70-99) Calcium Level 8.6 mg/dL (8.5-10.1) 8.4 mg/dL (8.5-10.1) Total Bilirubin 0.4 mg/dL (0.2-1.0) Aspartate Amino Transf (AST/SGOT) 20 U/L (15-37) Alanine Aminotransferase (ALT/SGPT) 20 U/L (14-59) Alkaline Phosphatase 117 U/L (46-116) Total Protein 7.5 g/dL (6.4-8.2) Albumin 2.4 g/dL (3.4-5.0) Albumin/Globulin Ratio 0.5 (1.0-1.7) Nasal Screen MRSA (PCR) Negative (Negative) Test 06/07/18 05:07 06/08/18 03:20 White Blood Count 10.2 x10^3/uL (4.0-11.0) 8.4 x10^3/uL (4.0-11.0) Red Blood Count 3.91 x10^6/uL (3.50-5.40) 3.73 x10^6/uL (3.50-5.40) Hemoglobin 12.3 g/dL (12.0-15.5) 11.3 g/dL (12.0-15.5) Hematocrit 37.1 % (36.0-47.0) 35.4 % (36.0-47.0) Mean Corpuscular Volume 95 fL (79-100) 95 fL (79-100) Mean Corpuscular Hemoglobin 32 pg (25-35) 30 pg (25-35) Mean Corpuscular Hemoglobin Concent 33 g/dL (31-37) 32 g/dL (31-37) Red Cell Distribution Width 15.9 % (11.5-14.5) 15.7 % (11.5-14.5) Platelet Count 315 x10^3/uL (140-400) 330 x10^3/uL (140-400) Neutrophils (%) (Auto) 81 % (31-73) 76 % (31-73) Lymphocytes (%) (Auto) 13 % (24-48) 18 % (24-48) Monocytes (%) (Auto) 5 % (0-9) 4 % (0-9) Eosinophils (%) (Auto) 1 % (0-3) 2 % (0-3) Basophils (%) (Auto) 0 % (0-3) 0 % (0-3) Neutrophils # (Auto) 8.2 x10^3uL (1.8-7.7) 6.4 x10^3uL (1.8-7.7) Lymphocytes # (Auto) 1.3 x10^3/uL (1.0-4.8) 1.5 x10^3/uL (1.0-4.8) Monocytes # (Auto) 0.5 x10^3/uL (0.0-1.1) 0.3 x10^3/uL (0.0-1.1) Eosinophils # (Auto) 0.1 x10^3/uL (0.0-0.7) 0.1 x10^3/uL (0.0-0.7) Basophils # (Auto) 0.0 x10^3/uL (0.0-0.2) 0.0 x10^3/uL (0.0-0.2) Sodium Level 141 mmol/L (136-145) Potassium Level 4.3 mmol/L (3.5-5.1) Chloride Level 105 mmol/L (98-107) Carbon Dioxide Level 29 mmol/L (21-32) Anion Gap 7 (6-14) Blood Urea Nitrogen 15 mg/dL (7-20) Creatinine 1.1 mg/dL (0.6-1.0) Estimated GFR (Cockcroft-Gault) 48.0 Glucose Level 102 mg/dL (70-99) Calcium Level 8.1 mg/dL (8.5-10.1) Laboratory Tests Test 06/08/18 03:20 White Blood Count 8.4 x10^3/uL (4.0-11.0) Red Blood Count 3.73 x10^6/uL (3.50-5.40) Hemoglobin 11.3 g/dL (12.0-15.5) Hematocrit 35.4 % (36.0-47.0) Mean Corpuscular Volume 95 fL (79-100) Mean Corpuscular Hemoglobin 30 pg (25-35) Mean Corpuscular Hemoglobin Concent 32 g/dL (31-37) Red Cell Distribution Width 15.7 % (11.5-14.5) Platelet Count 330 x10^3/uL (140-400) Neutrophils (%) (Auto) 76 % (31-73) Lymphocytes (%) (Auto) 18 % (24-48) Monocytes (%) (Auto) 4 % (0-9) Eosinophils (%) (Auto) 2 % (0-3) Basophils (%) (Auto) 0 % (0-3) Neutrophils # (Auto) 6.4 x10^3uL (1.8-7.7) Lymphocytes # (Auto) 1.5 x10^3/uL (1.0-4.8) Monocytes # (Auto) 0.3 x10^3/uL (0.0-1.1) Eosinophils # (Auto) 0.1 x10^3/uL (0.0-0.7) Basophils # (Auto) 0.0 x10^3/uL (0.0-0.2) Sodium Level 141 mmol/L (136-145) Potassium Level 4.3 mmol/L (3.5-5.1) Chloride Level 105 mmol/L (98-107) Carbon Dioxide Level 29 mmol/L (21-32) Anion Gap 7 (6-14) Blood Urea Nitrogen 15 mg/dL (7-20) Creatinine 1.1 mg/dL (0.6-1.0) Estimated GFR (Cockcroft-Gault) 48.0 Glucose Level 102 mg/dL (70-99) Calcium Level 8.1 mg/dL (8.5-10.1) Medications Current Medications Ceftriaxone Sodium (Rocephin) 1 gm 1X ONCE IVP Last administered on 06/06/18at 19:48; Start 06/06/18 at 19:15; Stop 06/06/18 at 19:16; Status DC Sodium Chloride 1,000 ml @ 100 mls/hr Q10H IV Last administered on 06/08/18at 01 :35; Start 06/06/18 at 20:30 Ondansetron HCl (Zofran) 4 mg PRN Q6HRS PRN IV NAUSEA/VOMITING 1ST CHOICE; Start 06/06/18 at 20:30 Calcium Carbonate/ Glycine (Tums) 500 mg PRN Q3HRS PRN PO UPSET STOMACH; Start 06/06/18 at 20:30 Oxycodone HCl (Roxicodone) 5 mg PRN Q3HRS PRN PO BREAKTHROUGH PAIN; Start 06/06 at 20:30 Morphine Sulfate (Morphine Sulfate) 1 mg PRN Q1HR PRN IV SEVERE PAIN; Start at 20:30 Acetaminophen (Tylenol) 650 mg PRN Q6HRS PRN PO Headaches, Temp > 101.5F; Start 06/06/18 at 20:30; Stop 06/06/18 at 21:09; Status DC Docusate Sodium (Colace) 100 mg BID PO Last administered on 06/08/18 08:19; Start 06/06/18 at 21:00 Bisacodyl (Dulcolax Supp) 10 mg PRN DAILY PRN CO CONSTIPATION 1ST CHOICE; Start 06/06/18 at 20:30 Ceftriaxone Sodium (Rocephin) 1 gm Q24H IVP Last administered on 06/07/18at 20:09 ; Start 06/07/18 at 20:00 Acetaminophen (Tylenol) 650 mg PRN Q4HRS PRN PO TEMP>101.5, HEADACHE MILD PAIN ; Start 06/06/18 at 20:30 Allopurinol (Zyloprim) 300 mg DAILY PO Last administered on 06/08/18 08:18; Start 06/07/18 at 09:00 Apixaban (Eliquis) 5 mg BID PO Last administered on 06/08/18 08:18; Start at 09:00 Aspirin (Children'S Aspirin) 81 mg DAILY PO Last administered on 06/08/18 08:18 ; Start 06/07/18 at 09:00 Vitamin D (Vitamin D3) 2,000 unit BID PO Last administered on 06/08/18 08:17; Start 06/07/18 at 09:00 Folic Acid (Folic Acid) 1 mg DAILY PO Last administered on 06/08/18 08:19; Start 06/07/18 at 09:00 Furosemide (Lasix) 40 mg DAILY PO Last administered on 06/08/18 08:18; Start at 09:00 Gabapentin (Neurontin) 300 mg BID PO Last administered on 06/08/18at 08:17; Start 06/06/18 at 21:00 Albuterol/ Ipratropium (Duoneb) 3 ml RTQID NEB Last administered on 06/08/18at 08 :35; Start 06/06/18 at 21:00 Non-Formulary Medication (Cranberry Fruit (Cranberry)) 400 mg BID PO ; Start at 21:00; Status UNV Donepezil HCl (Aricept) 10 mg DAILY PO Last administered on 06/08/18at 08:18; Start 06/07/18 at 09:00 Citalopram Hydrobromide (CeleXA) 40 mg DAILY PO Last administered on 06/08/18at 08:18; Start 06/07/18 at 09:00 Estradiol (Estrace) 2 mg DAILY PO Last administered on 06/08/18at 08:19; Start at 09:00 Magnesium Oxide (Magnesium Oxide) 400 mg TID PO Last administered on 06/08/18at 08:19; Start 06/07/18 at 09:00 Non-Formulary Medication (Melatonin ) 2 tab QHS PO ; Start 06/06/18 at 21:00; Status UNV Methotrexate (Rheumatrex) 17.5 mg WEEKLY PO ; Start 06/13/18 at 09:00 Potassium Chloride (Klor-Con) 20 meq [id number] PO Last administered on at 08:18; Start 06/07/18 at 08:00 Risperidone (RisperDAL) 0.25 mg DAILY PO Last administered on 06/08/18at 08:19; Start 06/07/18 at 09:00 Simvastatin (Zocor) 40 mg QHS PO Last administered on 06/07/18at 20:10; Start 06/07/18 at 21:00 Temazepam (Restoril) 7.5 mg PRN QHS PRN PO INSOMNIA; Start 06/06/18 at 20:30 Ondansetron HCl (Zofran) 4 mg PRN Q8HRS PRN IV NAUSEA/VOMITING; Start 06/06/18 at 20:45; Stop 06/07/18 at 20:44; Status UNV Sodium Chloride 1,000 ml @ 75 mls/hr [id number] IV ; Start 06/06/18 at 20:45; Stop 06/07/18 at 20:44; Status UNV Acetaminophen (Tylenol) 650 mg PRN Q4HRS PRN PO FEVER; Start 06/06/18 at 20:45 ; Stop 06/07/18 at 20:44; Status UNV Info (Anti-Coagulation Monitoring By Pharmacy) 1 each PRN DAILY PRN MC SEE COMMENTS Last administered on 06/07/18at 00:40; Start 06/06/18 at 21:15 Lactobacillus Rhamnosus (Culturelle) 1 cap BID PO Last administered on at 08:18; Start 06/07/18 at 21:00 Active Scripts Active Reported Risperdal (Risperidone) 0.25 Mg Tablet 0.5 Tab PO DAILY Gabapentin (Gabapentin) 300 Mg Capsule 300 Mg PO TID Magnesium Oxide 400 Mg Tablet 400 Mg PO TID Eliquis (Apixaban) 5 Mg Tablet 5 Mg PO BID Cranberry (Cranberry Fruit) 400 Mg Tablet 400 Mg PO BID Vitamin D3 (Cholecalciferol (Vitamin D3)) 1,000 Unit Tablet 2 Tab PO BID Estradiol 2 Mg Tablet 1 Tab PO DAILY Melatonin 3 Mg Tablet 2 Tab PO QHS Simvastatin 40 Mg Tablet 1 Tab PO QHS Allopurinol 300 Mg Tablet 1 Tab PO DAILY Donepezil Hcl 10 Mg Tablet 1 Tab PO DAILY Duoneb 0.5-3(2.5) Mg/3 Ml (Albuterol/Ipratropium) 3 Ml Ampul.neb 3 Ml NEB QID Lasix (Furosemide) 40 Mg Tablet 1 Tab PO DAILY Escitalopram Oxalate 20 Mg Tablet 1 Tab PO DAILY Methotrexate (Methotrexate Sodium) 2.5 Mg Tablet 7 Tab PO WEEKLY Potassium Chloride 20 Meq Tablet.er 20 Meq PO DAILY Folic Acid 1 Mg Tablet 1 Tab PO DAILY Aspirin 81 Mg Tab.chew 1 Tab PO DAILY Tylenol (Acetaminophen) 325 Mg Tablet 650 Mg PO Q4HRS PRN Vitals/I & O Vital Sign - Last 24 Hours 06/07/18 06/07/18 06/07/18 06/07/18 11:00 11:22 15:00 15:36 Temp 97.5 97.4 97.5 97.4 Pulse 56 54 Resp 16 16 B/P (MAP) 117/42 (67) 109/53 (71) Pulse Ox 96 97 O2 Delivery Nasal Cannula Nasal Cannula Nasal Cannula Nasal Cannula O2 Flow Rate 2.0 2.0 2.0 2.0 06/07/18 06/07/18 06/07/18 06/07/18 19:00 19:50 20:00 22:31 Temp 98.2 98.5 98.2 98.5 Pulse 63 66 Resp 18 17 B/P (MAP) 126/73 (90) 130/55 (80) Pulse Ox 94 95 97 O2 Delivery Nasal Cannula Nasal Cannula Nasal Cannula Nasal Cannula O2 Flow Rate 2.0 2.0 2.0 2.0 06/08/18 06/08/18 06/08/18 06/08/18 03:00 07:00 08:00 08:35 Temp 98.2 97.8 98.2 97.8 Pulse 58 55 Resp 17 18 B/P (MAP) 134/54 (80) 128/53 (78) Pulse Ox 97 97 97 O2 Delivery Nasal Cannula Nasal Cannula Nasal Cannula Nasal Cannula O2 Flow Rate 2.0 2.0 2.0 2.0 Intake and Output 06/07/18 06/07/18 06/08/18 14:59 22:59 06:59 Intake Total 30 ml 70 ml Balance 30 ml 70 ml PAL ROSEN III DO Jun 08, 2018 10:55
[2018-06-08 11:07] VITALS: BP 104/43
[2018-06-08] MEDS: CEFDINIR 300 MG CAPSULE PO SCH ×2 (14:47→20:30)
[2018-06-08 15:00] VITALS: BP 120/48
[2018-06-08 19:00] VITALS: BP 141/61
[2018-06-08] MEDS: SIMVASTATIN 40 MG TABLET. PO SCH (20:30)
[2018-06-08 23:00] VITALS: BP 130/68
[2018-06-09] MEDS: IV 1/2 NORMAL SALINE 1,000 ML IV SCH ×3 (01:06→21:20)
[2018-06-09 03:00] VITALS: BP 127/60
[2018-06-09 06:35] LABS: BASO % 0 % (0-3); EOS # 0.1 x10^3/uL (0.0-0.7); EOS % 2 % (0-3); HEMATOCRIT 35.1 % (36.0-47.0); HEMOGLOBIN 11.6 g/dL (12.0-15.5); LYMPH # 1.3 x10^3/uL (1.0-4.8); LYMPH % 18 % (24-48); MEAN CORPUSCULAR HEMOGLOBIN 31 pg (25-35); MEAN CORPUSCULAR HGB CONC 33 g/dL (31-37); MEAN CORPUSCULAR VOLUME 95 fL (79-100); MONO # 0.5 x10^3/uL (0.0-1.1); MONO % 7 % (0-9); NEUT # 5.4 x10^3uL (1.8-7.7); NEUT % 73 % (31-73); PLATELET COUNT 342 x10^3/uL (140-400); RED BLOOD COUNT 3.72 x10^6/uL (3.50-5.40); RED CELL DISTRIBUTION WIDTH 15.4 % (11.5-14.5); WHITE BLOOD COUNT 7.4 x10^3/uL (4.0-11.0)
[2018-06-09 06:36] LABS: CALCIUM 8.1 mg/dL (8.5-10.1); GFR 53.6; POTASSIUM 4.2 mmol/L (3.5-5.1)
[2018-06-09 07:15] VITALS: BP 134/66
[2018-06-09] MEDS: IPRATRPIUM/ALBUTEROL 0.5/2.5MG 3 ML NEBU. NEB SCH ×4 (07:37→21:01)
[2018-06-09] MEDS: CHOLECALCIFEROL (VITAMIN D3) 1,000 UNIT TABLET PO SCH ×2 (08:16→21:21)
[2018-06-09] MEDS: MAGNESIUM OXIDE 400 MG TABLET PO SCH ×3 (08:16→21:22)
[2018-06-09] MEDS: CITALOPRAM 20 MG TABLET. PO SCH (08:16)
[2018-06-09] MEDS: DONEPEZIL HCL 10 MG TABLET. PO SCH (08:16)
[2018-06-09] MEDS: risperiDONE 0.25 MG TABLET. PO SCH (08:16)
[2018-06-09] MEDS: ESTRADIOL 1 MG TABLET. PO SCH (08:16)
[2018-06-09] MEDS: POTASSIUM CHLORIDE 20 MEQ TABLET.ER. PO SCH (08:16)
[2018-06-09] MEDS: LACTOBACILLUS RHAMNOSUS GG 1 CAPSULE. PO SCH ×2 (08:16→21:22)
[2018-06-09] MEDS: CEFDINIR 300 MG CAPSULE PO SCH ×2 (08:16→21:22)
[2018-06-09] MEDS: ASPIRIN CHEWABLE 81 MG TABLET. PO SCH (08:17)
[2018-06-09] MEDS: FOLIC ACID 1 MG TABLET. PO SCH (08:17)
[2018-06-09] MEDS: DOCUSATE SODIUM 100 MG CAPSULE. PO SCH ×2 (08:17→21:22)
[2018-06-09] MEDS: FUROSEMIDE 40 MG TABLET. PO SCH (08:17)
[2018-06-09] MEDS: ALLOPURINOL 300 MG TABLET. PO SCH (08:17)
[2018-06-09] MEDS: APIXABAN 5 MG TABLET. PO SCH ×2 (08:17→21:21)
[2018-06-09] MEDS: GABAPENTIN 300 MG CAPSULE. PO SCH ×2 (08:17→21:22)
--- NOTE | 2018-06-09 09:38 | PDOC ---
PROGRESS NOTES Chief Complaint Chief Complaint UTI Pneumonia Metabolic encephalopathy Dementia History of Present Illness History of Present Illness Ms Colby is a 77-year-old female w/ PMHx Previous UTIs, arthritis, dementia , hypertension, hyperlipidemia and gout who resides in a care home. She developed mental status change. She has been sleeping more, was confused. She has not been eating or drinking, brought to the ER for evaluation. We noted that her labs showed her to have a urinary tract infection. She has got leukocyte esterase and too numerous to count white cells. She has now been admitted for IV fluids and IV antibiotics. >100,000 GNR found in urine. On oral cefdinir now. patient's Hgb has dropped and patient is still having a lot of chest congestion so patient is not stable enough for discharge just yet Patient was resting comfortably in her chair today. She says she feels well, but is still confused, apparently less so than yesterday. She presents with a mild cough. Plan: F/u cultures, once I have final results can return to [place] More nebulizer treatments, f/u Hb tomorrow prior to likely d/c Vitals Vitals Vital Signs Date Time Temp Pulse Resp B/P (MAP) Pulse Ox O2 Delivery O2 Flow Rate FiO2 06/09/18 08:00 Nasal Cannula 2.0 06/09/18 07:37 97 06/09/18 07:15 98.9 58 18 134/66 (88) 98.9 Physical Exam General: Alert, Oriented X3, Cooperative, No acute distress Heart: Regular rate, Normal S1, Normal S2, No murmurs Lungs: Clear Abdomen: Soft, No tenderness, No masses Extremities: No clubbing, No edema, Normal pulses, No tenderness/swelling Skin: No rashes, No breakdown, No significant lesion Labs LABS Laboratory Tests Test 06/09/18 05:50 White Blood Count 7.4 x10^3/uL (4.0-11.0) Red Blood Count 3.72 x10^6/uL (3.50-5.40) Hemoglobin 11.6 g/dL (12.0-15.5) Hematocrit 35.1 % (36.0-47.0) Mean Corpuscular Volume 95 fL (79-100) Mean Corpuscular Hemoglobin 31 pg (25-35) Mean Corpuscular Hemoglobin Concent 33 g/dL (31-37) Red Cell Distribution Width 15.4 % (11.5-14.5) Platelet Count 342 x10^3/uL (140-400) Neutrophils (%) (Auto) 73 % (31-73) Lymphocytes (%) (Auto) 18 % (24-48) Monocytes (%) (Auto) 7 % (0-9) Eosinophils (%) (Auto) 2 % (0-3) Basophils (%) (Auto) 0 % (0-3) Neutrophils # (Auto) 5.4 x10^3uL (1.8-7.7) Lymphocytes # (Auto) 1.3 x10^3/uL (1.0-4.8) Monocytes # (Auto) 0.5 x10^3/uL (0.0-1.1) Eosinophils # (Auto) 0.1 x10^3/uL (0.0-0.7) Basophils # (Auto) 0.0 x10^3/uL (0.0-0.2) Sodium Level 140 mmol/L (136-145) Potassium Level 4.2 mmol/L (3.5-5.1) Chloride Level 104 mmol/L (98-107) Carbon Dioxide Level 29 mmol/L (21-32) Anion Gap 7 (6-14) Blood Urea Nitrogen 10 mg/dL (7-20) Creatinine 1.0 mg/dL (0.6-1.0) Estimated GFR (Cockcroft-Gault) 53.6 Glucose Level 97 mg/dL (70-99) Calcium Level 8.1 mg/dL (8.5-10.1) Assessment and Plan Assessmemt and Plan Problems Medical Problems: (1) Altered mental status Status: Acute (2) UTI (urinary tract infection) Status: Acute Comment Review of Relevant I have reviewed the following items jane (where applicable) has been applied. Labs Laboratory Tests Test 06/08/18 03:20 06/09/18 05:50 White Blood Count 8.4 x10^3/uL (4.0-11.0) 7.4 x10^3/uL (4.0-11.0) Red Blood Count 3.73 x10^6/uL (3.50-5.40) 3.72 x10^6/uL (3.50-5.40) Hemoglobin 11.3 g/dL (12.0-15.5) 11.6 g/dL (12.0-15.5) Hematocrit 35.4 % (36.0-47.0) 35.1 % (36.0-47.0) Mean Corpuscular Volume 95 fL (79-100) 95 fL (79-100) Mean Corpuscular Hemoglobin 30 pg (25-35) 31 pg (25-35) Mean Corpuscular Hemoglobin Concent 32 g/dL (31-37) 33 g/dL (31-37) Red Cell Distribution Width 15.7 % (11.5-14.5) 15.4 % (11.5-14.5) Platelet Count 330 x10^3/uL (140-400) 342 x10^3/uL (140-400) Neutrophils (%) (Auto) 76 % (31-73) 73 % (31-73) Lymphocytes (%) (Auto) 18 % (24-48) 18 % (24-48) Monocytes (%) (Auto) 4 % (0-9) 7 % (0-9) Eosinophils (%) (Auto) 2 % (0-3) 2 % (0-3) Basophils (%) (Auto) 0 % (0-3) 0 % (0-3) Neutrophils # (Auto) 6.4 x10^3uL (1.8-7.7) 5.4 x10^3uL (1.8-7.7) Lymphocytes # (Auto) 1.5 x10^3/uL (1.0-4.8) 1.3 x10^3/uL (1.0-4.8) Monocytes # (Auto) 0.3 x10^3/uL (0.0-1.1) 0.5 x10^3/uL (0.0-1.1) Eosinophils # (Auto) 0.1 x10^3/uL (0.0-0.7) 0.1 x10^3/uL (0.0-0.7) Basophils # (Auto) 0.0 x10^3/uL (0.0-0.2) 0.0 x10^3/uL (0.0-0.2) Sodium Level 141 mmol/L (136-145) 140 mmol/L (136-145) Potassium Level 4.3 mmol/L (3.5-5.1) 4.2 mmol/L (3.5-5.1) Chloride Level 105 mmol/L (98-107) 104 mmol/L (98-107) Carbon Dioxide Level 29 mmol/L (21-32) 29 mmol/L (21-32) Anion Gap 7 (6-14) 7 (6-14) Blood Urea Nitrogen 15 mg/dL (7-20) 10 mg/dL (7-20) Creatinine 1.1 mg/dL (0.6-1.0) 1.0 mg/dL (0.6-1.0) Estimated GFR (Cockcroft-Gault) 48.0 53.6 Glucose Level 102 mg/dL (70-99) 97 mg/dL (70-99) Calcium Level 8.1 mg/dL (8.5-10.1) 8.1 mg/dL (8.5-10.1) Laboratory Tests Test 06/09/18 05:50 White Blood Count 7.4 x10^3/uL (4.0-11.0) Red Blood Count 3.72 x10^6/uL (3.50-5.40) Hemoglobin 11.6 g/dL (12.0-15.5) Hematocrit 35.1 % (36.0-47.0) Mean Corpuscular Volume 95 fL (79-100) Mean Corpuscular Hemoglobin 31 pg (25-35) Mean Corpuscular Hemoglobin Concent 33 g/dL (31-37) Red Cell Distribution Width 15.4 % (11.5-14.5) Platelet Count 342 x10^3/uL (140-400) Neutrophils (%) (Auto) 73 % (31-73) Lymphocytes (%) (Auto) 18 % (24-48) Monocytes (%) (Auto) 7 % (0-9) Eosinophils (%) (Auto) 2 % (0-3) Basophils (%) (Auto) 0 % (0-3) Neutrophils # (Auto) 5.4 x10^3uL (1.8-7.7) Lymphocytes # (Auto) 1.3 x10^3/uL (1.0-4.8) Monocytes # (Auto) 0.5 x10^3/uL (0.0-1.1) Eosinophils # (Auto) 0.1 x10^3/uL (0.0-0.7) Basophils # (Auto) 0.0 x10^3/uL (0.0-0.2) Sodium Level 140 mmol/L (136-145) Potassium Level 4.2 mmol/L (3.5-5.1) Chloride Level 104 mmol/L (98-107) Carbon Dioxide Level 29 mmol/L (21-32) Anion Gap 7 (6-14) Blood Urea Nitrogen 10 mg/dL (7-20) Creatinine 1.0 mg/dL (0.6-1.0) Estimated GFR (Cockcroft-Gault) 53.6 Glucose Level 97 mg/dL (70-99) Calcium Level 8.1 mg/dL (8.5-10.1) Microbiology 06/06/18 Urine Culture - Preliminary, Resulted 06/06/18 Urine Culture Result 1 ([facility]) - Preliminary, Resulted Medications Current Medications Ceftriaxone Sodium (Rocephin) 1 gm 1X ONCE IVP Last administered on 06/06/18at 19:48; Start 06/06/18 at 19:15; Stop 06/06/18 at 19:16; Status DC Sodium Chloride 1,000 ml @ 100 mls/hr Q10H IV Last administered on 06/09/18at 08 :15; Start 06/06/18 at 20:30 Ondansetron HCl (Zofran) 4 mg PRN Q6HRS PRN IV NAUSEA/VOMITING 1ST CHOICE; Start 06/06/18 at 20:30 Calcium Carbonate/ Glycine (Tums) 500 mg PRN Q3HRS PRN PO UPSET STOMACH; Start 06/06/18 at 20:30 Oxycodone HCl (Roxicodone) 5 mg PRN Q3HRS PRN PO BREAKTHROUGH PAIN; Start 06/06 at 20:30 Morphine Sulfate (Morphine Sulfate) 1 mg PRN Q1HR PRN IV SEVERE PAIN; Start at 20:30 Acetaminophen (Tylenol) 650 mg PRN Q6HRS PRN PO Headaches, Temp > 101.5F; Start 06/06/18 at 20:30; Stop 06/06/18 at 21:09; Status DC Docusate Sodium (Colace) 100 mg BID PO Last administered on 06/09/18 08:17; Start 06/06/18 at 21:00 Bisacodyl (Dulcolax Supp) 10 mg PRN DAILY PRN [place] CONSTIPATION 1ST CHOICE; Start 06/06/18 at 20:30 Ceftriaxone Sodium (Rocephin) 1 gm Q24H IVP Last administered on 06/07/18at 20:09 ; Start 06/07/18 at 20:00; Stop 06/08/18 at 13:30; Status DC Acetaminophen (Tylenol) 650 mg PRN Q4HRS PRN PO TEMP>101.5, HEADACHE MILD PAIN ; Start 06/06/18 at 20:30 Allopurinol (Zyloprim) 300 mg DAILY PO Last administered on 06/09/18 08:17; Start 06/07/18 at 09:00 Apixaban (Eliquis) 5 mg BID PO Last administered on 06/09/18 08:17; Start at 09:00 Aspirin (Children'S Aspirin) 81 mg DAILY PO Last administered on 06/09/18 08:17 ; Start 06/07/18 at 09:00 Vitamin D (Vitamin D3) 2,000 unit BID PO Last administered on 06/09/18 08:16; Start 06/07/18 at 09:00 Folic Acid (Folic Acid) 1 mg DAILY PO Last administered on 06/09/18 08:17; Start 06/07/18 at 09:00 Furosemide (Lasix) 40 mg DAILY PO Last administered on 06/09/18 08:17; Start at 09:00 Gabapentin (Neurontin) 300 mg BID PO Last administered on 06/09/18 08:17; Start 06/06/18 at 21:00 Albuterol/ Ipratropium (Duoneb) 3 ml RTQID NEB Last administered on 06/09/18 07 :37; Start 06/06/18 at 21:00 Non-Formulary Medication (Cranberry Fruit (Cranberry)) 400 mg BID PO ; Start at 21:00; Status UNV Donepezil HCl (Aricept) 10 mg DAILY PO Last administered on 06/09/18 08:16; Start 06/07/18 at 09:00 Citalopram Hydrobromide (CeleXA) 40 mg DAILY PO Last administered on 06/09/18 08:16; Start 06/07/18 at 09:00 Estradiol (Estrace) 2 mg DAILY PO Last administered on 06/09/18 08:16; Start at 09:00 Magnesium Oxide (Magnesium Oxide) 400 mg TID PO Last administered on 06/09/18 08:16; Start 06/07/18 at 09:00 Non-Formulary Medication (Melatonin ) 2 tab QHS PO ; Start 06/06/18 at 21:00; Status UNV Methotrexate (Rheumatrex) 17.5 mg WEEKLY PO ; Start 06/13/18 at 09:00 Potassium Chloride (Klor-Con) 20 meq DAILYWBKFT PO Last administered on 08:16; Start 06/07/18 at 08:00 Risperidone (RisperDAL) 0.25 mg DAILY PO Last administered on 06/09/18 08:16; Start 06/07/18 at 09:00 Simvastatin (Zocor) 40 mg QHS PO Last administered on 06/08/18 20:30; Start 06/07/18 at 21:00 Temazepam (Restoril) 7.5 mg PRN QHS PRN PO INSOMNIA; Start 06/06/18 at 20:30 Ondansetron HCl (Zofran) 4 mg PRN Q8HRS PRN IV NAUSEA/VOMITING; Start 06/06/18 at 20:45; Stop 06/07/18 at 20:44; Status UNV Sodium Chloride 1,000 ml @ 75 mls/hr [id number] IV ; Start 06/06/18 at 20:45; Stop 06/07/18 at 20:44; Status UNV Acetaminophen (Tylenol) 650 mg PRN Q4HRS PRN PO FEVER; Start 06/06/18 at 20:45 ; Stop 06/07/18 at 20:44; Status UNV Info (Anti-Coagulation Monitoring By Pharmacy) 1 each PRN DAILY PRN MC SEE COMMENTS Last administered on 06/07/18at 00:40; Start 06/06/18 at 21:15 Lactobacillus Rhamnosus (Culturelle) 1 cap BID PO Last administered on 08:16; Start 06/07/18 at 21:00 Cefdinir (Omnicef) 300 mg BID PO Last administered on 06/09/18at 08:16; Start 06/08/18 at 13:30 Active Scripts Active Reported Risperdal (Risperidone) 0.25 Mg Tablet 0.5 Tab PO DAILY Gabapentin (Gabapentin) 300 Mg Capsule 300 Mg PO TID Magnesium Oxide 400 Mg Tablet 400 Mg PO TID Eliquis (Apixaban) 5 Mg Tablet 5 Mg PO BID Cranberry (Cranberry Fruit) 400 Mg Tablet 400 Mg PO BID Vitamin D3 (Cholecalciferol (Vitamin D3)) 1,000 Unit Tablet 2 Tab PO BID Estradiol 2 Mg Tablet 1 Tab PO DAILY Melatonin 3 Mg Tablet 2 Tab PO QHS Simvastatin 40 Mg Tablet 1 Tab PO QHS Allopurinol 300 Mg Tablet 1 Tab PO DAILY Donepezil Hcl 10 Mg Tablet 1 Tab PO DAILY Duoneb 0.5-3(2.5) Mg/3 Ml (Albuterol/Ipratropium) 3 Ml Ampul.neb 3 Ml NEB QID Lasix (Furosemide) 40 Mg Tablet 1 Tab PO DAILY Escitalopram Oxalate 20 Mg Tablet 1 Tab PO DAILY Methotrexate (Methotrexate Sodium) 2.5 Mg Tablet 7 Tab PO WEEKLY Potassium Chloride 20 Meq Tablet.er 20 Meq PO DAILY Folic Acid 1 Mg Tablet 1 Tab PO DAILY Aspirin 81 Mg Tab.chew 1 Tab PO DAILY Tylenol (Acetaminophen) 325 Mg Tablet 650 Mg PO Q4HRS PRN Vitals/I & O Vital Sign - Last 24 Hours 06/08/18 06/08/18 06/08/18 06/08/18 11:07 11:43 15:00 16:29 Temp 97.9 97.8 97.9 97.8 Pulse 56 56 Resp 18 16 B/P (MAP) 104/43 (63) 120/48 (72) Pulse Ox 97 97 98 O2 Delivery Nasal Cannula Nasal Cannula Nasal Cannula Nasal Cannula O2 Flow Rate 2.0 2.0 2.0 2.0 06/08/18 06/08/18 06/08/18 06/08/18 19:00 19:13 19:35 23:00 Temp 99.0 98.8 99.0 98.8 Pulse 66 60 Resp 20 20 B/P (MAP) 141/61 (87) 130/68 (88) Pulse Ox 98 95 97 O2 Delivery Nasal Cannula Nasal Cannula Nasal Cannula Nasal Cannula O2 Flow Rate 2.0 2.0 2.0 2.0 06/09/18 06/09/18 06/09/18 06/09/18 03:00 07:15 07:37 08:00 Temp 97.5 98.9 97.5 98.9 Pulse 60 58 Resp 20 18 B/P (MAP) 127/60 (82) 134/66 (88) Pulse Ox 95 96 97 O2 Delivery Nasal Cannula Nasal Cannula Nasal Cannula Nasal Cannula O2 Flow Rate 2.0 2.0 2.0 2.0 Intake and Output 06/08/18 06/08/18 06/09/18 14:59 22:59 06:59 Intake Total 250 ml 320 ml Balance 250 ml 320 ml KOURTNEY TAYLOR MD Jun 09, 2018 09:38
[2018-06-09 11:04] VITALS: BP 108/56
[2018-06-09 15:17] VITALS: BP 110/54
[2018-06-09] MEDS: ANTI-COAG MONITOR BY PHARMACY. MC PRN (16:30)
[2018-06-09 19:00] VITALS: BP 132/54
[2018-06-09] MEDS: SIMVASTATIN 40 MG TABLET. PO SCH (21:22)
[2018-06-09 23:00] VITALS: BP 144/59
[2018-06-10 03:02] VITALS: BP 131/56
[2018-06-10 05:09] LABS: BASO % 1 % (0-3); EOS # 0.1 x10^3/uL (0.0-0.7); EOS % 2 % (0-3); HEMOGLOBIN 11.4 g/dL (12.0-15.5); LYMPH # 1.5 x10^3/uL (1.0-4.8); LYMPH % 23 % (24-48); MEAN CORPUSCULAR HEMOGLOBIN 31 pg (25-35); MEAN CORPUSCULAR HGB CONC 32 g/dL (31-37); MEAN CORPUSCULAR VOLUME 94 fL (79-100); MONO # 0.4 x10^3/uL (0.0-1.1); MONO % 6 % (0-9); NEUT # 4.6 x10^3uL (1.8-7.7); NEUT % 68 % (31-73); PLATELET COUNT 335 x10^3/uL (140-400); RED BLOOD COUNT 3.72 x10^6/uL (3.50-5.40); RED CELL DISTRIBUTION WIDTH 15.4 % (11.5-14.5); WHITE BLOOD COUNT 6.7 x10^3/uL (4.0-11.0)
[2018-06-10 05:13] LABS: CALCIUM 8.2 mg/dL (8.5-10.1); CREATININE 0.9 mg/dL (0.6-1.0); GFR 60.6; POTASSIUM 4.1 mmol/L (3.5-5.1)
[2018-06-10 07:00] VITALS: BP 138/64
[2018-06-10] MEDS: IPRATRPIUM/ALBUTEROL 0.5/2.5MG 3 ML NEBU. NEB SCH ×2 (07:11→13:24)
--- NOTE | 2018-06-10 07:57 | PDOC ---
PROGRESS NOTES Chief Complaint Chief Complaint UTI Pneumonia Metabolic encephalopathy Dementia History of Present Illness History of Present Illness Ms Colby is a 77-year-old female w/ PMHx Previous UTIs, Rheumatoid arthritis , dementia, hypertension, hyperlipidemia and gout COPD, who resides at [facility]. According to the patient herself, she does not walk. She is mainly in bed and a chair due to RA deformities and has decreased RLE sensation and strength for over a year. She developed mental status change. She has been sleeping more, was confused. She had not been eating or drinking, brought to the ER for evaluation. We noted that her labs showed her to have a urinary tract infection. She has got leukocyte esterase and too numerous to count white cells. She has now been admitted for IV fluids and IV antibiotics. >100,000 GNR found in urine. On oral cefdinir now. patient's Hgb has dropped and patient is still having a lot of chest congestion so patient is was not stable enough for discharge just yet on 06/09. Patient was resting comfortably in her chair today. She says she feels well, but is still confused, apparently less so than yesterday. She presents with a mild cough that has improved. Her urine shows neff sensitive e coli. Plan: ok for augmentin 5 days, now that I have final results can return to [place] for d/c Vitals Vitals Vital Signs Date Time Temp Pulse Resp B/P (MAP) Pulse Ox O2 Delivery O2 Flow Rate FiO2 06/10/18 07:12 Nasal Cannula 2.0 06/10/18 03:02 98.5 59 20 131/56 (81) 97 98.5 Physical Exam General: Alert, Cooperative, No acute distress Heart: Regular rate, Normal S1, Normal S2, No murmurs Lungs: Clear Abdomen: Soft, No tenderness, No masses Extremities: No clubbing, No edema, Normal pulses, No tenderness/swelling Skin: No rashes, No breakdown, No significant lesion Labs LABS Laboratory Tests Test 06/10/18 03:35 White Blood Count 6.7 x10^3/uL (4.0-11.0) Red Blood Count 3.72 x10^6/uL (3.50-5.40) Hemoglobin 11.4 g/dL (12.0-15.5) Hematocrit 35.0 % (36.0-47.0) Mean Corpuscular Volume 94 fL (79-100) Mean Corpuscular Hemoglobin 31 pg (25-35) Mean Corpuscular Hemoglobin Concent 32 g/dL (31-37) Red Cell Distribution Width 15.4 % (11.5-14.5) Platelet Count 335 x10^3/uL (140-400) Neutrophils (%) (Auto) 68 % (31-73) Lymphocytes (%) (Auto) 23 % (24-48) Monocytes (%) (Auto) 6 % (0-9) Eosinophils (%) (Auto) 2 % (0-3) Basophils (%) (Auto) 1 % (0-3) Neutrophils # (Auto) 4.6 x10^3uL (1.8-7.7) Lymphocytes # (Auto) 1.5 x10^3/uL (1.0-4.8) Monocytes # (Auto) 0.4 x10^3/uL (0.0-1.1) Eosinophils # (Auto) 0.1 x10^3/uL (0.0-0.7) Basophils # (Auto) 0.0 x10^3/uL (0.0-0.2) Sodium Level 140 mmol/L (136-145) Potassium Level 4.1 mmol/L (3.5-5.1) Chloride Level 104 mmol/L (98-107) Carbon Dioxide Level 28 mmol/L (21-32) Anion Gap 8 (6-14) Blood Urea Nitrogen 8 mg/dL (7-20) Creatinine 0.9 mg/dL (0.6-1.0) Estimated GFR (Cockcroft-Gault) 60.6 Glucose Level 93 mg/dL (70-99) Calcium Level 8.2 mg/dL (8.5-10.1) Assessment and Plan Assessmemt and Plan Problems Medical Problems: (1) Altered mental status Status: Acute (2) UTI (urinary tract infection) Status: Acute Comment Review of Relevant I have reviewed the following items jane (where applicable) has been applied. Labs Laboratory Tests Test 06/09/18 05:50 06/10/18 03:35 White Blood Count 7.4 x10^3/uL (4.0-11.0) 6.7 x10^3/uL (4.0-11.0) Red Blood Count 3.72 x10^6/uL (3.50-5.40) 3.72 x10^6/uL (3.50-5.40) Hemoglobin 11.6 g/dL (12.0-15.5) 11.4 g/dL (12.0-15.5) Hematocrit 35.1 % (36.0-47.0) 35.0 % (36.0-47.0) Mean Corpuscular Volume 95 fL (79-100) 94 fL (79-100) Mean Corpuscular Hemoglobin 31 pg (25-35) 31 pg (25-35) Mean Corpuscular Hemoglobin Concent 33 g/dL (31-37) 32 g/dL (31-37) Red Cell Distribution Width 15.4 % (11.5-14.5) 15.4 % (11.5-14.5) Platelet Count 342 x10^3/uL (140-400) 335 x10^3/uL (140-400) Neutrophils (%) (Auto) 73 % (31-73) 68 % (31-73) Lymphocytes (%) (Auto) 18 % (24-48) 23 % (24-48) Monocytes (%) (Auto) 7 % (0-9) 6 % (0-9) Eosinophils (%) (Auto) 2 % (0-3) 2 % (0-3) Basophils (%) (Auto) 0 % (0-3) 1 % (0-3) Neutrophils # (Auto) 5.4 x10^3uL (1.8-7.7) 4.6 x10^3uL (1.8-7.7) Lymphocytes # (Auto) 1.3 x10^3/uL (1.0-4.8) 1.5 x10^3/uL (1.0-4.8) Monocytes # (Auto) 0.5 x10^3/uL (0.0-1.1) 0.4 x10^3/uL (0.0-1.1) Eosinophils # (Auto) 0.1 x10^3/uL (0.0-0.7) 0.1 x10^3/uL (0.0-0.7) Basophils # (Auto) 0.0 x10^3/uL (0.0-0.2) 0.0 x10^3/uL (0.0-0.2) Sodium Level 140 mmol/L (136-145) 140 mmol/L (136-145) Potassium Level 4.2 mmol/L (3.5-5.1) 4.1 mmol/L (3.5-5.1) Chloride Level 104 mmol/L (98-107) 104 mmol/L (98-107) Carbon Dioxide Level 29 mmol/L (21-32) 28 mmol/L (21-32) Anion Gap 7 (6-14) 8 (6-14) Blood Urea Nitrogen 10 mg/dL (7-20) 8 mg/dL (7-20) Creatinine 1.0 mg/dL (0.6-1.0) 0.9 mg/dL (0.6-1.0) Estimated GFR (Cockcroft-Gault) 53.6 60.6 Glucose Level 97 mg/dL (70-99) 93 mg/dL (70-99) Calcium Level 8.1 mg/dL (8.5-10.1) 8.2 mg/dL (8.5-10.1) Laboratory Tests Test 06/10/18 03:35 White Blood Count 6.7 x10^3/uL (4.0-11.0) Red Blood Count 3.72 x10^6/uL (3.50-5.40) Hemoglobin 11.4 g/dL (12.0-15.5) Hematocrit 35.0 % (36.0-47.0) Mean Corpuscular Volume 94 fL (79-100) Mean Corpuscular Hemoglobin 31 pg (25-35) Mean Corpuscular Hemoglobin Concent 32 g/dL (31-37) Red Cell Distribution Width 15.4 % (11.5-14.5) Platelet Count 335 x10^3/uL (140-400) Neutrophils (%) (Auto) 68 % (31-73) Lymphocytes (%) (Auto) 23 % (24-48) Monocytes (%) (Auto) 6 % (0-9) Eosinophils (%) (Auto) 2 % (0-3) Basophils (%) (Auto) 1 % (0-3) Neutrophils # (Auto) 4.6 x10^3uL (1.8-7.7) Lymphocytes # (Auto) 1.5 x10^3/uL (1.0-4.8) Monocytes # (Auto) 0.4 x10^3/uL (0.0-1.1) Eosinophils # (Auto) 0.1 x10^3/uL (0.0-0.7) Basophils # (Auto) 0.0 x10^3/uL (0.0-0.2) Sodium Level 140 mmol/L (136-145) Potassium Level 4.1 mmol/L (3.5-5.1) Chloride Level 104 mmol/L (98-107) Carbon Dioxide Level 28 mmol/L (21-32) Anion Gap 8 (6-14) Blood Urea Nitrogen 8 mg/dL (7-20) Creatinine 0.9 mg/dL (0.6-1.0) Estimated GFR (Cockcroft-Gault) 60.6 Glucose Level 93 mg/dL (70-99) Calcium Level 8.2 mg/dL (8.5-10.1) Microbiology 06/06/18 Urine Culture - Final, Complete 06/06/18 Urine Culture Result 1 (SINA) - Final, Complete 06/06/18 Antimicrobic Susceptibility - Final, Complete Medications Current Medications Ceftriaxone Sodium (Rocephin) 1 gm 1X ONCE IVP Last administered on 06/06/18at 19:48; Start 06/06/18 at 19:15; Stop 06/06/18 at 19:16; Status DC Sodium Chloride 1,000 ml @ 100 mls/hr Q10H IV Last administered on 06/09/18at 21 :20; Start 06/06/18 at 20:30 Ondansetron HCl (Zofran) 4 mg PRN Q6HRS PRN IV NAUSEA/VOMITING 1ST CHOICE; Start 06/06/18 at 20:30 Calcium Carbonate/ Glycine (Tums) 500 mg PRN Q3HRS PRN PO UPSET STOMACH; Start 06/06/18 at 20:30 Oxycodone HCl (Roxicodone) 5 mg PRN Q3HRS PRN PO BREAKTHROUGH PAIN; Start 06/06 at 20:30 Morphine Sulfate (Morphine Sulfate) 1 mg PRN Q1HR PRN IV SEVERE PAIN; Start at 20:30 Acetaminophen (Tylenol) 650 mg PRN Q6HRS PRN PO Headaches, Temp > 101.5F; Start 06/06/18 at 20:30; Stop 06/06/18 at 21:09; Status DC Docusate Sodium (Colace) 100 mg BID PO Last administered on 06/09/18 21:22; Start 06/06/18 at 21:00 Bisacodyl (Dulcolax Supp) 10 mg PRN DAILY PRN [place] CONSTIPATION 1ST CHOICE; Start 06/06/18 at 20:30 Ceftriaxone Sodium (Rocephin) 1 gm Q24H IVP Last administered on 06/07/18 20:09 ; Start 06/07/18 at 20:00; Stop 06/08/18 at 13:30; Status DC Acetaminophen (Tylenol) 650 mg PRN Q4HRS PRN PO TEMP>101.5, HEADACHE MILD PAIN ; Start 06/06/18 at 20:30 Allopurinol (Zyloprim) 300 mg DAILY PO Last administered on 06/09/18 08:17; Start 06/07/18 at 09:00 Apixaban (Eliquis) 5 mg BID PO Last administered on 06/09/18 21:21; Start at 09:00 Aspirin (Children'S Aspirin) 81 mg DAILY PO Last administered on 06/09/18 08:17 ; Start 06/07/18 at 09:00 Vitamin D (Vitamin D3) 2,000 unit BID PO Last administered on 06/09/18 21:21; Start 06/07/18 at 09:00 Folic Acid (Folic Acid) 1 mg DAILY PO Last administered on 06/09/18 08:17; Start 06/07/18 at 09:00 Furosemide (Lasix) 40 mg DAILY PO Last administered on 06/09/18 08:17; Start at 09:00 Gabapentin (Neurontin) 300 mg BID PO Last administered on 06/09/18 21:22; Start 06/06/18 at 21:00 Albuterol/ Ipratropium (Duoneb) 3 ml RTQID NEB Last administered on 06/10/18 07 :11; Start 06/06/18 at 21:00 Non-Formulary Medication (Cranberry Fruit (Cranberry)) 400 mg BID PO ; Start at 21:00; Status UNV Donepezil HCl (Aricept) 10 mg DAILY PO Last administered on 06/09/18 08:16; Start 06/07/18 at 09:00 Citalopram Hydrobromide (CeleXA) 40 mg DAILY PO Last administered on 06/09/18 08:16; Start 06/07/18 at 09:00 Estradiol (Estrace) 2 mg DAILY PO Last administered on 06/09/18 08:16; Start at 09:00 Magnesium Oxide (Magnesium Oxide) 400 mg TID PO Last administered on 06/09/18 21:22; Start 06/07/18 at 09:00 Non-Formulary Medication (Melatonin ) 2 tab QHS PO ; Start 06/06/18 at 21:00; Status UNV Methotrexate (Rheumatrex) 17.5 mg WEEKLY PO ; Start 06/13/18 at 09:00 Potassium Chloride (Klor-Con) 20 meq DAILYWBKFT PO Last administered on 08:16; Start 06/07/18 at 08:00 Risperidone (RisperDAL) 0.25 mg DAILY PO Last administered on 06/09/18 08:16; Start 06/07/18 at 09:00 Simvastatin (Zocor) 40 mg QHS PO Last administered on 06/09/18 21:22; Start 06/07/18 at 21:00 Temazepam (Restoril) 7.5 mg PRN QHS PRN PO INSOMNIA; Start 06/06/18 at 20:30 Ondansetron HCl (Zofran) 4 mg PRN Q8HRS PRN IV NAUSEA/VOMITING; Start 06/06/18 at 20:45; Stop 06/07/18 at 20:44; Status UNV Sodium Chloride 1,000 ml @ 75 mls/hr [id number] IV ; Start 06/06/18 at 20:45; Stop 06/07/18 at 20:44; Status UNV Acetaminophen (Tylenol) 650 mg PRN Q4HRS PRN PO FEVER; Start 06/06/18 at 20:45 ; Stop 06/07/18 at 20:44; Status UNV Info (Anti-Coagulation Monitoring By Pharmacy) 1 each PRN DAILY PRN MC SEE COMMENTS Last administered on 06/09/18at 16:30; Start 06/06/18 at 21:15 Lactobacillus Rhamnosus (Culturelle) 1 cap BID PO Last administered on 21:22; Start 06/07/18 at 21:00 Cefdinir (Omnicef) 300 mg BID PO Last administered on 06/09/18at 21:22; Start 06/08/18 at 13:30 Active Scripts Active Reported Risperdal (Risperidone) 0.25 Mg Tablet 0.5 Tab PO DAILY Gabapentin (Gabapentin) 300 Mg Capsule 300 Mg PO TID Magnesium Oxide 400 Mg Tablet 400 Mg PO TID Eliquis (Apixaban) 5 Mg Tablet 5 Mg PO BID Cranberry (Cranberry Fruit) 400 Mg Tablet 400 Mg PO BID Vitamin D3 (Cholecalciferol (Vitamin D3)) 1,000 Unit Tablet 2 Tab PO BID Estradiol 2 Mg Tablet 1 Tab PO DAILY Melatonin 3 Mg Tablet 2 Tab PO QHS Simvastatin 40 Mg Tablet 1 Tab PO QHS Allopurinol 300 Mg Tablet 1 Tab PO DAILY Donepezil Hcl 10 Mg Tablet 1 Tab PO DAILY Duoneb 0.5-3(2.5) Mg/3 Ml (Albuterol/Ipratropium) 3 Ml Ampul.neb 3 Ml NEB QID Lasix (Furosemide) 40 Mg Tablet 1 Tab PO DAILY Escitalopram Oxalate 20 Mg Tablet 1 Tab PO DAILY Methotrexate (Methotrexate Sodium) 2.5 Mg Tablet 7 Tab PO WEEKLY Potassium Chloride 20 Meq Tablet.er 20 Meq PO DAILY Folic Acid 1 Mg Tablet 1 Tab PO DAILY Aspirin 81 Mg Tab.chew 1 Tab PO DAILY Tylenol (Acetaminophen) 325 Mg Tablet 650 Mg PO Q4HRS PRN Vitals/I & O Vital Sign - Last 24 Hours 06/09/18 06/09/18 06/09/18 06/09/18 08:00 11:04 11:31 15:17 Temp 97.9 98.1 97.9 98.1 Pulse 62 59 Resp 20 18 B/P (MAP) 108/56 (73) 110/54 (72) Pulse Ox 95 95 O2 Delivery Nasal Cannula Nasal Cannula Nasal Cannula Nasal Cannula O2 Flow Rate 2.0 2.0 2.0 2.0 06/09/18 06/09/18 06/09/18 06/09/18 15:38 19:00 19:30 21:02 Temp 98.6 98.6 Pulse 63 Resp 20 B/P (MAP) 132/54 (80) Pulse Ox 93 O2 Delivery Nasal Cannula Nasal Cannula Nasal Cannula Nasal Cannula O2 Flow Rate 2.0 2.0 2.0 06/09/18 06/10/18 06/10/18 23:00 03:02 07:12 Temp 98.1 98.5 98.1 98.5 Pulse 61 59 Resp 20 20 B/P (MAP) 144/59 (87) 131/56 (81) Pulse Ox 98 97 O2 Delivery Nasal Cannula Nasal Cannula Nasal Cannula O2 Flow Rate 2.0 Intake and Output 06/09/18 06/09/18 06/10/18 15:00 23:00 07:00 Intake Total 360 ml 1180 ml Output Total 0 ml Balance 360 ml 1180 ml 0 ml KOURTNEY TAYLOR MD Jun 10, 2018 07:57
[2018-06-10] MEDS: IV 1/2 NORMAL SALINE 1,000 ML IV SCH (08:16)
[2018-06-10] MEDS: DOCUSATE SODIUM 100 MG CAPSULE. PO SCH (08:17)
[2018-06-10] MEDS: LACTOBACILLUS RHAMNOSUS GG 1 CAPSULE. PO SCH (08:17)
[2018-06-10] MEDS: MAGNESIUM OXIDE 400 MG TABLET PO SCH (08:17)
[2018-06-10] MEDS: ESTRADIOL 1 MG TABLET. PO SCH (08:17)
[2018-06-10] MEDS: CHOLECALCIFEROL (VITAMIN D3) 1,000 UNIT TABLET PO SCH (08:17)
[2018-06-10] MEDS: risperiDONE 0.25 MG TABLET. PO SCH (08:17)
[2018-06-10] MEDS: FOLIC ACID 1 MG TABLET. PO SCH (08:18)
[2018-06-10] MEDS: APIXABAN 5 MG TABLET. PO SCH (08:18)
[2018-06-10] MEDS: GABAPENTIN 300 MG CAPSULE. PO SCH (08:18)
[2018-06-10] MEDS: CEFDINIR 300 MG CAPSULE PO SCH (08:18)
[2018-06-10] MEDS: CITALOPRAM 20 MG TABLET. PO SCH (08:18)
[2018-06-10] MEDS: ALLOPURINOL 300 MG TABLET. PO SCH (08:18)
[2018-06-10] MEDS: DONEPEZIL HCL 10 MG TABLET. PO SCH (08:19)
[2018-06-10] MEDS: POTASSIUM CHLORIDE 20 MEQ TABLET.ER. PO SCH (08:19)
[2018-06-10] MEDS: ASPIRIN CHEWABLE 81 MG TABLET. PO SCH (08:19)
[2018-06-10] MEDS: FUROSEMIDE 40 MG TABLET. PO SCH (08:19)
[2018-06-10] MEDS ORDERED: AMOXICILLIN/K CLAV 500/125MG TABLET. PO SCH (09:00)
[2018-06-10] MEDS ORDERED: DOCU-109 PO (10:57)
[2018-06-10] MEDS ORDERED: LACT1CAP19 PO (10:57)
[2018-06-10] MEDS ORDERED: AMOX1TAB10 PO (10:57)
[2018-06-10 11:00] VITALS: BP 127/58
--- NOTE | 2018-06-10 11:00 | SNU/HH DC ---
DISCHARGE ORDERS DISCHARGE INFORMATION: DISCHARGE DATE: Jun 10, 2018 FINAL DIAGNOSIS Problems Medical Problems: (1) Altered mental status Status: Acute (2) UTI (urinary tract infection) Status: Acute CONDITION ON DISCHARGE: Stable CODE STATUS: Code Status: Full SENIOR CARE: SNF STAY <30 DAYS: No POST DISCHARGE ORDERS: ACTIVITY ORDERS: Resume previous activity WEIGHT BEARING STATUS: No restrictions DIET AFTER DISCHARGE: Regular CHECKS AFTER DISCHARGE: CHECKS AFTER DISCHARGE: Check blood press - daily FOLLOW-UP: LAB ORDERS FOR FOLLOW-UP: CBC,CMP TREATMENT/EQUIPMENT ORDERS: ADAPTIVE EQUIPMENT NEEDED: Wheelchair RESPIRATORY EQUIPMENT NEEDED: Oxygen Physical Therapy For: Evalulation/Treatment DISCHARGE MEDICATIONS: Home Meds Active Scripts Lactobacillus Rhamnosus Gg (CULTURELLE) 1 Each Cap.sprink, 1 CAP PO BID for antibiotic diarrhea for 7 Days, #14 CAP Prov:KOURTNEY TAYLOR MD 06/10/18 Docusate Sodium (COLACE) 100 Mg Capsule, 100 MG PO BID for Constipation for 30 Days, #60 CAP Prov:KOURTNEY TAYLOR MD 06/10/18 Amoxicillin/Potassium Clav (AMOX TR-K CLV 500-125 MG TAB) 1 Each Tablet, 1 TAB PO BID for UTI for 5 Days, #10 TAB Prov:KOURTNEY TAYLOR MD 06/10/18 Reported Medications Risperidone (RISPERDAL) 0.25 Mg Tablet, 0.5 TAB PO DAILY, #60 TAB 1 Refill 12/05/17 Gabapentin (GABAPENTIN ) 300 Mg Capsule, 300 MG PO TID, CAP 12/05/17 Magnesium Oxide (MAGNESIUM OXIDE) 400 Mg Tablet, 400 MG PO TID, TAB 12/05/17 Apixaban (ELIQUIS) 5 Mg Tablet, 5 MG PO BID, TAB 12/05/17 Cranberry Fruit (CRANBERRY) 400 Mg Tablet, 400 MG PO BID, TAB 12/05/17 Cholecalciferol (Vitamin D3) (VITAMIN D3) 1,000 Unit Tablet, 2 TAB PO BID, #30 TAB 5 Refills 12/05/17 Estradiol (ESTRADIOL) 2 Mg Tablet, 1 TAB PO DAILY, #90 TAB 1 Refill 12/05/17 Melatonin (MELATONIN) 3 Mg Tablet, 2 TAB PO QHS, #30 TAB 12/05/17 Simvastatin (SIMVASTATIN) 40 Mg Tablet, 1 TAB PO QHS, #30 TAB 5 Refills 12/05/17 Allopurinol (ALLOPURINOL) 300 Mg Tablet, 1 TAB PO DAILY, #30 TAB 5 Refills 12/05/17 Donepezil Hcl (DONEPEZIL HCL) 10 Mg Tablet, 1 TAB PO DAILY, #90 TAB 1 Refill 12/05/17 Ipratropium/Albuterol Sulfate (DUONEB 0.5-3(2.5) MG/3 ML) 3 Ml Ampul.neb, 3 ML NEB QID, EACH 12/05/17 Furosemide (LASIX) 40 Mg Tablet, 1 TAB PO DAILY, #90 TAB 1 Refill 12/05/17 Escitalopram Oxalate (ESCITALOPRAM OXALATE) 20 Mg Tablet, 1 TAB PO DAILY, #30 TAB 5 Refills 12/05/17 Methotrexate Sodium (METHOTREXATE) 2.5 Mg Tablet, 7 TAB PO WEEKLY, #32 TAB 2 Refills 12/05/17 Potassium Chloride (POTASSIUM CHLORIDE) 20 Meq Tablet.er, 20 MEQ PO DAILY, TAB.SR 12/05/17 Folic Acid (FOLIC ACID) 1 Mg Tablet, 1 TAB PO DAILY, #90 TAB 1 Refill 12/05/17 Aspirin (ASPIRIN) 81 Mg Tab.chew, 1 TAB PO DAILY, #30 TAB 3 Refills 12/05/17 Acetaminophen (TYLENOL) 325 Mg Tablet, 650 MG PO Q4HRS PRN for FEVER, TAB 12/05/17 KOURTNEY TAYLOR MD Jun 10, 2018 11:00
--- NOTE | 2018-06-10 11:10 | PDOC3 ---
Discharge Summary Visit Information Date of Admission: Jun 07, 2018 Date of Discharge: Jun 10, 2018 Admitting Diagnosis: Acute encephalopathy, UTI Final Diagnosis Problems Medical Problems: (1) Altered mental status Status: Acute (2) UTI (urinary tract infection) Status: Acute Brief Hospital Course Allergies Allergies Coded Allergies Type Severity Reaction Last Updated Verified No Known Drug Allergies 05/03/13 No Vital Signs Vital Signs Date Time Temp Pulse Resp B/P (MAP) Pulse Ox O2 Delivery O2 Flow Rate FiO2 06/10/18 08:00 Nasal Cannula 2.0 06/10/18 07:00 98.8 59 16 138/64 (88) 94 98.8 Lab Results Laboratory Tests Test 06/09/18 05:50 06/10/18 03:35 White Blood Count 7.4 x10^3/uL (4.0-11.0) 6.7 x10^3/uL (4.0-11.0) Red Blood Count 3.72 x10^6/uL (3.50-5.40) 3.72 x10^6/uL (3.50-5.40) Hemoglobin 11.6 g/dL (12.0-15.5) 11.4 g/dL (12.0-15.5) Hematocrit 35.1 % (36.0-47.0) 35.0 % (36.0-47.0) Mean Corpuscular Volume 95 fL (79-100) 94 fL (79-100) Mean Corpuscular Hemoglobin 31 pg (25-35) 31 pg (25-35) Mean Corpuscular Hemoglobin Concent 33 g/dL (31-37) 32 g/dL (31-37) Red Cell Distribution Width 15.4 % (11.5-14.5) 15.4 % (11.5-14.5) Platelet Count 342 x10^3/uL (140-400) 335 x10^3/uL (140-400) Neutrophils (%) (Auto) 73 % (31-73) 68 % (31-73) Lymphocytes (%) (Auto) 18 % (24-48) 23 % (24-48) Monocytes (%) (Auto) 7 % (0-9) 6 % (0-9) Eosinophils (%) (Auto) 2 % (0-3) 2 % (0-3) Basophils (%) (Auto) 0 % (0-3) 1 % (0-3) Neutrophils # (Auto) 5.4 x10^3uL (1.8-7.7) 4.6 x10^3uL (1.8-7.7) Lymphocytes # (Auto) 1.3 x10^3/uL (1.0-4.8) 1.5 x10^3/uL (1.0-4.8) Monocytes # (Auto) 0.5 x10^3/uL (0.0-1.1) 0.4 x10^3/uL (0.0-1.1) Eosinophils # (Auto) 0.1 x10^3/uL (0.0-0.7) 0.1 x10^3/uL (0.0-0.7) Basophils # (Auto) 0.0 x10^3/uL (0.0-0.2) 0.0 x10^3/uL (0.0-0.2) Sodium Level 140 mmol/L (136-145) 140 mmol/L (136-145) Potassium Level 4.2 mmol/L (3.5-5.1) 4.1 mmol/L (3.5-5.1) Chloride Level 104 mmol/L (98-107) 104 mmol/L (98-107) Carbon Dioxide Level 29 mmol/L (21-32) 28 mmol/L (21-32) Anion Gap 7 (6-14) 8 (6-14) Blood Urea Nitrogen 10 mg/dL (7-20) 8 mg/dL (7-20) Creatinine 1.0 mg/dL (0.6-1.0) 0.9 mg/dL (0.6-1.0) Estimated GFR (Cockcroft-Gault) 53.6 60.6 Glucose Level 97 mg/dL (70-99) 93 mg/dL (70-99) Calcium Level 8.1 mg/dL (8.5-10.1) 8.2 mg/dL (8.5-10.1) Laboratory Tests Test 06/10/18 03:35 White Blood Count 6.7 x10^3/uL (4.0-11.0) Red Blood Count 3.72 x10^6/uL (3.50-5.40) Hemoglobin 11.4 g/dL (12.0-15.5) Hematocrit 35.0 % (36.0-47.0) Mean Corpuscular Volume 94 fL (79-100) Mean Corpuscular Hemoglobin 31 pg (25-35) Mean Corpuscular Hemoglobin Concent 32 g/dL (31-37) Red Cell Distribution Width 15.4 % (11.5-14.5) Platelet Count 335 x10^3/uL (140-400) Neutrophils (%) (Auto) 68 % (31-73) Lymphocytes (%) (Auto) 23 % (24-48) Monocytes (%) (Auto) 6 % (0-9) Eosinophils (%) (Auto) 2 % (0-3) Basophils (%) (Auto) 1 % (0-3) Neutrophils # (Auto) 4.6 x10^3uL (1.8-7.7) Lymphocytes # (Auto) 1.5 x10^3/uL (1.0-4.8) Monocytes # (Auto) 0.4 x10^3/uL (0.0-1.1) Eosinophils # (Auto) 0.1 x10^3/uL (0.0-0.7) Basophils # (Auto) 0.0 x10^3/uL (0.0-0.2) Sodium Level 140 mmol/L (136-145) Potassium Level 4.1 mmol/L (3.5-5.1) Chloride Level 104 mmol/L (98-107) Carbon Dioxide Level 28 mmol/L (21-32) Anion Gap 8 (6-14) Blood Urea Nitrogen 8 mg/dL (7-20) Creatinine 0.9 mg/dL (0.6-1.0) Estimated GFR (Cockcroft-Gault) 60.6 Glucose Level 93 mg/dL (70-99) Calcium Level 8.2 mg/dL (8.5-10.1) Brief Hospital Course Ms Colby is a 77-year-old female w/ PMHx Previous UTIs, Rheumatoid arthritis , dementia, hypertension, hyperlipidemia and gout COPD, who resides at [facility]. According to the patient herself, she does not walk. She is mainly in bed and a chair due to RA deformities and has decreased RLE sensation and strength for over a year. She developed mental status change. She has been sleeping more, was confused. She had not been eating or drinking, brought to the ER for evaluation. We noted that her labs showed her to have a urinary tract infection. She has got leukocyte esterase and too numerous to count white cells. She was admitted for IV fluids and IV antibiotics. >100,000 GNR found in urine. was on oral cefdinir. patient's Hgb has dropped and patient is still having a lot of chest congestion so patient is was not stable enough for discharge just yet on 06/09. Patient was resting comfortably in her chair today. She says she feels well, but is still confused, apparently less so than yesterday, near baseline. Mild cough has improved. Her urine shows neff sensitive Klebsiella. She feels ready to go Plan: ok for augmentin 5 days, now that I have final results can return to [place] for d/c Greater than 30 minutes spent on discharge Discharge Information Condition at Discharge: Improved Follow Up: Weeks (2) Disposition/Orders: D/C to Another Facility Scheduled Allopurinol (Allopurinol) 300 Mg Tablet, 1 TAB PO DAILY, #30 Ref 5 (Reported) Entered as Reported by: MARY ISBELL on 12/05/172235 Last Action: Continued on 06/06/182033 by CHELSY MONTENEGRO Amoxicillin/Potassium Clav (Amox Tr-K Clv 500-125 Mg Tab) 1 Each Tablet, 1 TAB PO BID for UTI for 5 Days, #10 Prescribed by: KOURTNEY TAYLOR MD on 06/10/18 1057 Apixaban (Eliquis) 5 Mg Tablet, 5 MG PO BID, (Reported) Entered as Reported by: MARY ISBELL on 12/05/172235 Last Action: Continued on 06/06/182033 by CHELSY MONTENEGRO Aspirin (Aspirin) 81 Mg Tab.chew, 1 TAB PO DAILY, #30 Ref 3 (Reported) Entered as Reported by: MARY ISBELL on 12/05/172225 Last Action: Continued on 06/06/182033 by CHELSY MONTENEGRO Cholecalciferol (Vitamin D3) (Vitamin D3) 1,000 Unit Tablet, 2 TAB PO BID, #30 Ref 5 (Reported) Entered as Reported by: MARY ISBELL on 12/05/172235 Last Action: Continued on 06/06/182033 by CHELSY MONTENEGRO Cranberry Fruit (Cranberry) 400 Mg Tablet, 400 MG PO BID, (Reported) Entered as Reported by: MARY ISBELL on 12/05/172235 Last Action: Converted on 06/06/182033 by CHELSY MONTENEGRO Docusate Sodium (Colace) 100 Mg Capsule, 100 MG PO BID for Constipation for 30 Days, #60 Prescribed by: KOURTNEY TAYLOR MD on 06/10/18 1057 Donepezil Hcl (Donepezil Hcl) 10 Mg Tablet, 1 TAB PO DAILY, #90 Ref 1 (Reported) Entered as Reported by: MARY ISBELL on 12/05/172235 Last Action: Converted on 06/06/182033 by CHELSY MONTENEGRO Escitalopram Oxalate (Escitalopram Oxalate) 20 Mg Tablet, 1 TAB PO DAILY, #30 Ref 5 (Reported) Entered as Reported by: MARY ISBELL on 12/05/172235 Last Action: Converted on 06/06/182033 by CHELSY MONTENEGRO Estradiol (Estradiol) 2 Mg Tablet, 1 TAB PO DAILY, #90 Ref 1 (Reported) Entered as Reported by: MARY ISBELL on 12/05/172235 Last Action: Converted on 06/06/182033 by CHELSY MONTENEGRO Folic Acid (Folic Acid) 1 Mg Tablet, 1 TAB PO DAILY, #90 Ref 1 (Reported) Entered as Reported by: MARY ISBELL on 12/05/172235 Last Action: Continued on 06/06/182033 by CHELSY MONTENEGRO Furosemide (Lasix) 40 Mg Tablet, 1 TAB PO DAILY, #90 Ref 1 (Reported) Entered as Reported by: MARY ISBELL on 12/05/172235 Last Action: Continued on 06/06/182033 by CHELSY MONTENEGRO Gabapentin (Gabapentin ) 300 Mg Capsule, 300 MG PO TID, (Reported) Entered as Reported by: MARY ISBELL on 12/05/172235 Last Action: Continued on 06/06/182033 by CHELSY MONTENEGRO Ipratropium/Albuterol Sulfate (Duoneb 0.5-3(2.5) Mg/3 Ml) 3 Ml Ampul.neb, 3 ML NEB QID, (Reported) Entered as Reported by: MARY ISBELL on 12/05/172235 Last Action: Continued on 06/06/182033 by CHELSY MONTENEGRO Lactobacillus Rhamnosus Gg (Culturelle) 1 Each Cap.sprink, 1 CAP PO BID for antibiotic diarrhea for 7 Days, #14 Prescribed by: KOURTNEY TAYLOR MD on 06/10/18 1057 Magnesium Oxide (Magnesium Oxide) 400 Mg Tablet, 400 MG PO TID, (Reported) Entered as Reported by: MARY ISBELL on 12/05/172235 Last Action: Converted on 06/06/182033 by CHELSY MONTENEGRO Melatonin (Melatonin) 3 Mg Tablet, 2 TAB PO QHS, #30 (Reported) Entered as Reported by: MARY ISBELL on 12/05/172235 Last Action: Converted on 06/06/182033 by CHELSY MONTENEGRO Methotrexate Sodium (Methotrexate) 2.5 Mg Tablet, 7 TAB PO WEEKLY, #32 Ref 2 ( Reported) Entered as Reported by: MARY ISBELL on 12/05/172235 Last Action: Converted on 06/06/182033 by CHELSY MONTENEGRO Potassium Chloride (Potassium Chloride) 20 Meq Tablet.er, 20 MEQ PO DAILY, ( Reported) Entered as Reported by: MARY ISBELL on 12/05/172235 Last Action: Converted on 06/06/182033 by CHELSY MONTENEGRO Risperidone (Risperdal) 0.25 Mg Tablet, 0.5 TAB PO DAILY, #60 Ref 1 (Reported) Entered as Reported by: MARY ISBELL on 12/05/172235 Last Action: Converted on 06/06/182033 by CHELSY MONTENEGRO Simvastatin (Simvastatin) 40 Mg Tablet, 1 TAB PO QHS, #30 Ref 5 (Reported) Entered as Reported by: MARY ISBELL on 12/05/172235 Last Action: Converted on 06/06/182033 by CHELSY MONTENEGRO Scheduled PRN Acetaminophen (Tylenol) 325 Mg Tablet, 650 MG PO Q4HRS PRN for FEVER, (Reported) Entered as Reported by: MARY ISBELL on 12/05/172225 Last Action: Continued on 06/06/182033 by KOURTNEY XIE MD Jun 10, 2018 11:10
--- NOTE | 2018-06-10 15:13 | NUR ---
Patient was discharged with her belongings and discharge information. She was picked up by transport which was arranged for by [facility]. Discharge information was discussed with the patient and she had no questions regarding the information she was given. Patient was escorted from the unit by wheelchair.
[2018-06-13] MEDS ORDERED: METHOTREXATE SODIUM 2.5 MG TABLET PO SCH (09:00)
== END 2018-06-10 15:17 | disposition home or self-care (01) | DRG 177 ==
LOC: ER 17:53 → 5 NORTH 20:30 → OBSVTOIN 06-07 10:18
PROVIDERS: ADMIT Internal Medicine; ATTEND Internal Medicine
DX: J69.0 Pneumonitis due to inhalation of food and vomit (principal); G93.41 Metabolic encephalopathy; N39.0 Urinary tract infection, site not specified; J44.0 Chronic obstructive pulmonary disease with (acute) lower respiratory infection; E78.00 Pure hypercholesterolemia, unspecified; E78.5 Hyperlipidemia, unspecified; F03.90 Unspecified dementia, unspecified severity, without behavioral disturbance, psychotic disturbance, mood disturbance, and anxiety; I10 Essential (primary) hypertension; M06.9 Rheumatoid arthritis, unspecified; Z82.49 Family history of ischemic heart disease and other diseases of the circulatory system; Z90.710 Acquired absence of both cervix and uterus; Z87.440 Personal history of urinary (tract) infections; M10.9 Gout, unspecified; M19.90 Unspecified osteoarthritis, unspecified site; B96.1 Klebsiella pneumoniae [K. pneumoniae] as the cause of diseases classified elsewhere
CPT/HCPCS: 36415; 70450; 71045; 80048; 80053; 81001; 85025; 87086; 87186; 87641; 94640; 94760; 96374; G0378; G0379; J0696; J7620; 97530; 97535; 99285-25

== ENCOUNTER 2020-06-18 12:04 | Inpatient (IN) | payer MEDICARE, OTHER ==
[~2020-06-18] VITALS: Ht 167.6 cm; Wt 81.9 kg
[~2020-06-18 12:04] MED LIST changes: +ALLO100T PO; +AMOX1TAB10 PO; +CALC1TAB54 PO; +CEFTRIAXONE SODIUM IVP; +DOCU-109 PO; +LACT1CAP19 PO; -MAGN400T3 PO; +MAGN400T5 PO; -MELA3TAB2 PO; +MELA3TAB4 PO; +MENT113G6 TP; +NYST60PO TP; +POLY17PO52 PO; +POTA20TA4 PO; -POTA20TA82 PO; +SIMV40TA18 PO; -SIMV40TA3 PO
--- NOTE | 2020-06-18 12:18 | PHYS DOC ---
Past Medical History Past Medical History: Arthritis, Dementia, High Cholesterol, Hypertension Additional Past Medical Histor: GOUT Past Surgical History: Cholecystectomy, Hysterectomy, Tonsillectomy Smoking Status: Never Smoker Alcohol Use: None Drug Use: None General Adult HPI: HPI: 79 yo F PMH dementia, CVA, AFIB, COPD, HTN and HLD presents to the ed from [place] with c/o left sided "sharp, boopity, boop, boop, boop" nonradiating chest pain that started around 9 AM this morning "at breakfast." Location is in pts' left upper chest, she denies any radiation or associated sxs. No prior h/o ACS/CAD. Not on any AC. EMS reports patient requires assistance with mobility and has baseline UE tremors, gave 324 ASA en route-no associated syncope. Pt calm, smiling and flirts with male rn on arrival. Reports she still has cp and has never had this pain before. Pt alert to location but not month, year or current president. Review of Systems: Review of Systems: ROS: limited given dementia but denies fever chills, headache, neck rigidity, nausea, vomiting, diarrhea, diaphoresis, sore throat, cough, hemoptysis, leg swelling, abdominal/back pain, weakness or sensory loss. Heart Score: C/O Chest Pain: Yes HEART Score for Chest Pain: HEART Score for Chest Pain Response (Comments) Value History Slighlty/Non-Suspicious 0 ECG Normal 0 Age > 65 2 Risk Factors >3 Risk Factors or Hx CAD 2 Troponin < Normal Limit 0 Total 4 Risk Factors: Risk Factors: DM, Current or recent (<one month) smoker, HTN, HLP, family history of CAD, obesity. Risk Scores: Score 0 - 3: 2.5% MACE over next 6 weeks - Discharge Home Score 4 - 6: 20.3% MACE over next 6 weeks - Admit for Clinical Observation Score 7 - 10: 72.7% MACE over next 6 weeks - Early Invasive Strategies Allergies: Allergies: Allergies Coded Allergies Type Severity Reaction Last Updated Verified No Known Drug Allergies 05/03/13 No Physical Exam: PE: Constitutional: Well developed, well nourished, no acute distress, non-toxic appearance. HENT: Normocephalic, atraumatic, Eyes: EOMI, conjunctiva normal, no discharge. Neck: Normal range of motion, supple, Cardiovascular: S1/2 present, irregular rhythm Lungs & Thorax: Speaking in full sentences, bilateral equal chest rise, no tachypnea or increased work of breathing Abdomen: soft, no tenderness, Skin: Warm, dry, no erythema, no rash. [] Back: No tenderness, no CVA tenderness. [] Extremities: No tenderness, no cyanosis, no unilateral lower extremity edema Neurologic: Alert and oriented X 3, normal motor function, normal sensory function, no focal deficits noted. [] Psychologic: Affect normal, judgement normal, mood normal. [] EKG: EKG: Irregular rhythm, atrial fibrillation 65 bpm, left axis deviation, normal intervals, no obvious T wave inversions/ST elevation/ST depressions Radiology/Procedures: Radiology/Procedures: IMAGING REPORT Signed PATIENT: JANEY MILLIGAN: [id number] : 1940 LOCATION: ER AGE: 79 SEX: F EXAM STATUS: REG ER ORD. PHYSICIAN: KENN CASH DO REASON: cp/ LABS @ 1225 PROCEDURE: PORTABLE CHEST 1V XR CHEST 1V History: Reason: cp/ LABS @ 1225 / Spl. Instructions: / History: Comparison: None. Findings: Decreased bibasilar opacities compared to prior. No consolidation or pleural effusion. Normal heart size. No pneumothorax. Impression: 1. Decreased bibasilar opacities compared to prior. Electronically signed by: Win Phan DO (06/18/2020 1:51 PM) [id number] DICTATED and SIGNED BY: WIN PHAN DO DATE: 06/18/20 [id number] 0 Course & Med Decision Making: Course & Med Decision Making Pertinent Labs and Imaging studies reviewed. (See chart for details) Concern for atypical chest pain, low suspicion for life-threatening causes although given age and risk factors (score 4), will admit for cardiology evaluation and further medical management. Patient accepted by Dr. Shanda cruz was stable at time of admission. I have spoken with the patient and/or caregivers. I have explained the patient's condition, diagnosis and treatment plan based on the information available to me at this time. I have answered the patient's and/or caregivers questions and answered any concerns. The patient and/or caregivers have as good an understanding of the patient's diagnosis, condition and treatment plan as can be expected at this point. The patient has been stabilized within the capability of the emergency department. The patient will be transported for further care and management or will be moved to an observation or inpatient service. I have communicated with the staff or medical practitioner taking over this patient's care. Dragon Disclaimer: Dragon Disclaimer: This electronic medical record was generated, in whole or in part, using a voice recognition dictation system. Departure Departure Impression: Primary Impression: Chest pain at rest Disposition: ADMITTED INPATIENT Admitting Physician: JHONATAN (Dr. Land) Condition: STABLE Referrals: JOSE M CALHOUN (PCP) KENN CASH DO Jun 18, 2020 12:18
[2020-06-18 13:04] LABS: BASO % 0 % (0-3); EOS # 0.1 x10^3/uL (0.0-0.7); EOS % 1 % (0-3); HEMATOCRIT 45.4 % (36.0-47.0); HEMOGLOBIN 15.2 g/dL (12.0-15.5); LYMPH # 1.4 x10^3/uL (1.0-4.8); LYMPH % 12 % (24-48); MEAN CORPUSCULAR HEMOGLOBIN 33 pg (25-35); MEAN CORPUSCULAR HGB CONC 33 g/dL (31-37); MEAN CORPUSCULAR VOLUME 97 fL (79-100); MONO # 0.5 x10^3/uL (0.0-1.1); MONO % 5 % (0-9); NEUT # 9.4 x10^3/uL (1.8-7.7); NEUT % 82 % (31-73); PLATELET COUNT 393 x10^3/uL (140-400); RED BLOOD COUNT 4.67 x10^6/uL (3.50-5.40); RED CELL DISTRIBUTION WIDTH 16.7 % (11.5-14.5); WHITE BLOOD COUNT 11.4 x10^3/uL (4.0-11.0)
[2020-06-18 13:18] LABS: PROTHROMBIN TIME PATIENT 16.2 SEC (11.7-14.0)
[2020-06-18 13:22] LABS: CREATININE 1.2 mg/dL (0.6-1.0); GFR 43.2; POTASSIUM 4.6 mmol/L (3.5-5.1)
[2020-06-18 13:37] LABS: ALBUMIN 3.3 g/dL (3.4-5.0); ALBUMIN/GLOBULIN RATIO 0.7 (1.0-1.7); MAGNESIUM 2.2 mg/dL (1.8-2.4); TOTAL BILIRUBIN 0.5 mg/dL (0.2-1.0); TOTAL PROTEIN 7.8 g/dL (6.4-8.2)
--- NOTE | 2020-06-18 13:53 | RAD ---
XR CHEST 1V History: Reason: cp/ LABS @ 1225 / [facility]. Instructions: / History: Comparison: None. Findings: Decreased bibasilar opacities compared to prior. No consolidation or pleural effusion. Normal heart s ize. No pneumothorax. Impression: 1. Decreased bibasilar opacities compared to prior. Electronically signed by: Win Phan DO (06/18/2020 1:51 PM) [id number]
--- NOTE | 2020-06-18 15:24 | PDOC1 ---
History and Physical Date of Admission Date of Admission DATE: 06/18/20 TIME: 15:23 Identification/Chief Complaint Chief Complaint Chest pain Source Source: Chart review, Patient History of Present Illness History of Present Illness Patient is a 79-year-old female with past medical history A. fib, COPD, hypertension, hyperlipidemia, who presents from her half-way with complaints of sharp left-sided chest pain that started this morning around 9:00 AM. History is limited due to patient's dementia. When I inquired about patient's current chest pain, she states she "can't remember". She is alert to person and location, but not time. Initial troponin <0.017, EKG with no ST changes. Will admit patient for further medical management. Past Medical History Cardiovascular: HTN, Hyperlipidemia GI: No pertinent hx Heme/Onc: No pertinent hx Hepatobiliary: No pertinent hx Psych: Anxiety Rheumatologic: Gout, Rheumatoid arthritis Infectious disease: No pertinent hx Renal/: No pertinent hx Endocrine: No pertinent hx Past Surgical History Past Surgical History: Cholecystectomy, Tonsillectomy, Hysterectomy Family History Family History: Family History Unknown Social History Smoke: No ALCOHOL: none Drugs: None Current Problem List Problem List Problems Medical Problems: (1) Chest pain at rest Status: Acute Current Medications Current Medications Active Scripts Active Nystop (Nystatin) 60 Gm Powder 1 Celestine TP BID 14 Days Oysco 500+D Tablet (Calcium Carbonate/Vitamin D3) 1 Each Tablet 1 Tab PO BIDWMEALS 30 Days [Ceftriaxone Sodium] 1 GM Vial 1 Gm IVP Q24H 7 Days Colace (Docusate Sodium) 100 Mg Capsule 100 Mg PO BID 30 Days Reported Polyethylene Glycol 3350 17 Gm Powd.pack 17 Gm PO DAILY Bengay (Menthol) 113 Gm Gel..gram. 113 Gm TP PRN Q6HRS Allopurinol 100 Mg Tablet 150 Mg PO HS Gabapentin (Gabapentin) 300 Mg Capsule 300 Mg PO TID Magnesium Oxide 400 Mg Tablet 400 Mg PO TID Eliquis (Apixaban) 5 Mg Tablet 5 Mg PO BID Cranberry (Cranberry Fruit) 400 Mg Tablet 400 Mg PO BID Vitamin D3 (Cholecalciferol (Vitamin D3)) 1,000 Unit Tablet 2 Tab PO BID Melatonin 3 Mg Tablet 2 Tab PO QHS Simvastatin 40 Mg Tablet 1 Tab PO QHS Donepezil Hcl 10 Mg Tablet 1 Tab PO DAILY Duoneb 0.5-3(2.5) Mg/3 Ml (Albuterol/Ipratropium) 3 Ml Ampul.neb 3 Ml NEB QID Lasix (Furosemide) 40 Mg Tablet 1 Tab PO DAILY Escitalopram Oxalate 20 Mg Tablet 1 Tab PO DAILY Methotrexate (Methotrexate Sodium) 2.5 Mg Tablet 7 Tab PO WEEKLY Potassium Chloride (Potassium Chloride) 20 Meq Tablet.er 20 Meq PO DAILY Folic Acid 1 Mg Tablet 1 Tab PO DAILY Aspirin 81 Mg Tab.chew 1 Tab PO DAILY Tylenol (Acetaminophen) 325 Mg Tablet 650 Mg PO Q4HRS PRN Allergies Allergies: Coded Allergies: No Known Drug Allergies (Unverified , 05/03/13) ROS Review of System GENERAL: No history of weight change, weakness or fevers. SKIN: No bruising, hair changes or rashes. EYES: No blurred, double or loss of vision. NOSE AND THROAT: No history of nosebleeds, hoarseness or sore throat. HEART: Chest pain. Denies palpitations. LUNGS: Denies cough, hemoptysis, wheezing or shortness of breath. GASTROINTESTINAL: Denies nausea, vomiting, abdominal pain. GENITOURINARY: Denies dysuria, frequency, urgency, hematuria. NEUROLOGIC: Denies history of numbness, tingling, tremor or weakness. PSYCHIATRIC: Denies anxiety, denies depression. ENDOCRINE: No history of heat or cold intolerance, polyuria or polydipsia. EXTREMITIES: Denies muscle weakness, joint pain, pain on walking or stiffness. Physical Exam Physical Exam General: Alert, Oriented X3, Cooperative, No acute distress HEENT: PERRLA, EOMI Lungs: Clear to auscultation, Normal air movement Heart: RRR, no murmurs Cardiovascular: S1, S2 Abdomen: Normal bowel sounds, Soft, No tenderness Extremities: +1 pitting edema bilaterally. No clubbing, No cyanosis Skin: No rashes, No significant lesion Neuro: Normal speech, Normal tone, Sensation intact Psych/Mental Status: Mental status NL, Mood NL Vitals Vitals Vital Signs Date Time Temp Pulse Resp B/P (MAP) Pulse Ox O2 Delivery O2 Flow Rate FiO2 06/18/20 13:32 72 18 167/72 (103) 98 Room Air 06/18/20 12:05 97.9 97.9 Labs Labs Laboratory Tests Test 06/18/20 12:42 White Blood Count 11.4 x10^3/uL (4.0-11.0) Red Blood Count 4.67 x10^6/uL (3.50-5.40) Hemoglobin 15.2 g/dL (12.0-15.5) Hematocrit 45.4 % (36.0-47.0) Mean Corpuscular Volume 97 fL (79-100) Mean Corpuscular Hemoglobin 33 pg (25-35) Mean Corpuscular Hemoglobin Concent 33 g/dL (31-37) Red Cell Distribution Width 16.7 % (11.5-14.5) Platelet Count 393 x10^3/uL (140-400) Neutrophils (%) (Auto) 82 % (31-73) Lymphocytes (%) (Auto) 12 % (24-48) Monocytes (%) (Auto) 5 % (0-9) Eosinophils (%) (Auto) 1 % (0-3) Basophils (%) (Auto) 0 % (0-3) Neutrophils # (Auto) 9.4 x10^3/uL (1.8-7.7) Lymphocytes # (Auto) 1.4 x10^3/uL (1.0-4.8) Monocytes # (Auto) 0.5 x10^3/uL (0.0-1.1) Eosinophils # (Auto) 0.1 x10^3/uL (0.0-0.7) Basophils # (Auto) 0.0 x10^3/uL (0.0-0.2) Prothrombin Time 16.2 SEC (11.7-14.0) Prothromb Time International Ratio 1.3 (0.8-1.1) Activated Partial Thromboplast Time 39 SEC (24-38) Sodium Level 144 mmol/L (136-145) Potassium Level 4.6 mmol/L (3.5-5.1) Chloride Level 102 mmol/L (98-107) Carbon Dioxide Level 30 mmol/L (21-32) Anion Gap 12 (6-14) Blood Urea Nitrogen 14 mg/dL (7-20) Creatinine 1.2 mg/dL (0.6-1.0) Estimated GFR (Cockcroft-Gault) 43.2 BUN/Creatinine Ratio 12 (6-20) Glucose Level 92 mg/dL (70-99) Calcium Level 9.0 mg/dL (8.5-10.1) Magnesium Level 2.2 mg/dL (1.8-2.4) Total Bilirubin 0.5 mg/dL (0.2-1.0) Aspartate Amino Transf (AST/SGOT) 28 U/L (15-37) Alanine Aminotransferase (ALT/SGPT) 28 U/L (14-59) Alkaline Phosphatase 129 U/L (46-116) Troponin I Quantitative < 0.017 ng/mL (0.000-0.055) XD-Fgo-E-Type Natriuretic Peptide 2824 pg/mL (0-449) Total Protein 7.8 g/dL (6.4-8.2) Albumin 3.3 g/dL (3.4-5.0) Albumin/Globulin Ratio 0.7 (1.0-1.7) Laboratory Tests Test 06/18/20 12:42 White Blood Count 11.4 x10^3/uL (4.0-11.0) Red Blood Count 4.67 x10^6/uL (3.50-5.40) Hemoglobin 15.2 g/dL (12.0-15.5) Hematocrit 45.4 % (36.0-47.0) Mean Corpuscular Volume 97 fL (79-100) Mean Corpuscular Hemoglobin 33 pg (25-35) Mean Corpuscular Hemoglobin Concent 33 g/dL (31-37) Red Cell Distribution Width 16.7 % (11.5-14.5) Platelet Count 393 x10^3/uL (140-400) Neutrophils (%) (Auto) 82 % (31-73) Lymphocytes (%) (Auto) 12 % (24-48) Monocytes (%) (Auto) 5 % (0-9) Eosinophils (%) (Auto) 1 % (0-3) Basophils (%) (Auto) 0 % (0-3) Neutrophils # (Auto) 9.4 x10^3/uL (1.8-7.7) Lymphocytes # (Auto) 1.4 x10^3/uL (1.0-4.8) Monocytes # (Auto) 0.5 x10^3/uL (0.0-1.1) Eosinophils # (Auto) 0.1 x10^3/uL (0.0-0.7) Basophils # (Auto) 0.0 x10^3/uL (0.0-0.2) Prothrombin Time 16.2 SEC (11.7-14.0) Prothromb Time International Ratio 1.3 (0.8-1.1) Activated Partial Thromboplast Time 39 SEC (24-38) Sodium Level 144 mmol/L (136-145) Potassium Level 4.6 mmol/L (3.5-5.1) Chloride Level 102 mmol/L (98-107) Carbon Dioxide Level 30 mmol/L (21-32) Anion Gap 12 (6-14) Blood Urea Nitrogen 14 mg/dL (7-20) Creatinine 1.2 mg/dL (0.6-1.0) Estimated GFR (Cockcroft-Gault) 43.2 BUN/Creatinine Ratio 12 (6-20) Glucose Level 92 mg/dL (70-99) Calcium Level 9.0 mg/dL (8.5-10.1) Magnesium Level 2.2 mg/dL (1.8-2.4) Total Bilirubin 0.5 mg/dL (0.2-1.0) Aspartate Amino Transf (AST/SGOT) 28 U/L (15-37) Alanine Aminotransferase (ALT/SGPT) 28 U/L (14-59) Alkaline Phosphatase 129 U/L (46-116) Troponin I Quantitative < 0.017 ng/mL (0.000-0.055) NV-Eck-L-Type Natriuretic Peptide 2824 pg/mL (0-449) Total Protein 7.8 g/dL (6.4-8.2) Albumin 3.3 g/dL (3.4-5.0) Albumin/Globulin Ratio 0.7 (1.0-1.7) Images Images PORTABLE CHEST 1V XR CHEST 1V History: Reason: cp/ LABS @ 1225 / [facility]. Instructions: / History: Comparison: None. Findings: Decreased bibasilar opacities compared to prior. No consolidation or pleural ef fusion. Normal heart size. No pneumothorax. Impression: 1. Decreased bibasilar opacities compared to prior. VTE Prophylaxis Ordered VTE Prophylaxis Devices: No VTE Pharmacological Prophylaxi: Yes Assessment/Plan Assessment/Plan Unstable angina BUTCH due to vasomotor nephropathy Elevated BNP Atrial fibrillation Dementia Moderate malnutrition Plan: Will admit patient and consult cardiology; continue to trend troponins She had echocardiogram 12/07/2017 with normal left ventricular systolic function and ejection fraction 55-60%; will obtain limited echo. Resume home medications FEN - Cardiac diet PPX - Eliquis DNR Dispo - observation for above; patient unable to name surrogate decision-maker at this time. Justifications for Admission Other Justification JAIME JENSEN MD Jun 18, 2020 15:24
[2020-06-18] MEDS ORDERED: ACETAMINOPHEN 325 MG TABLET. PO PRN (16:00)
[2020-06-18] MEDS ORDERED: BISACODYL 10 MG SUPP.RECT. PR PRN (16:00)
[2020-06-18] MEDS ORDERED: MAG HYDROX/ALUMINUM HYD/SIMETH 30 ML ORAL.SUSP PO PRN (16:00)
[2020-06-18] MEDS ORDERED: ONDANSETRON PF 4 MG/2 ML VIAL. IVP PRN (16:00)
[2020-06-18] MEDS ORDERED: HYDROcodone/APAP 5/325MG 1 TAB TABLET PO PRN (16:00)
[2020-06-18] MEDS ORDERED: CALCIUM CARBONATE 500 MG TAB.CHEW PO PRN (16:00)
[2020-06-18] MEDS ORDERED: MAGNESIUM HYDROXIDE 2,400 MG/30 ML ORAL.SUSP. PO PRN (16:00)
[2020-06-18] MEDS ORDERED: MORPHINE SULFATE 2 MG/ML VIAL. IV PRN (16:00)
--- NOTE | 2020-06-18 17:17 | EKG ---
[facility] [address] [place] [address] Test Date: 2020-06-18 Test Time: 12:07:20 Pat Name: JANEY MILLIGAN Department: Room: Gender: F Service Plumber: : [phone] Requested By: KENN CASH Order Number: [id number] Reading MD: Measurements Intervals Garber Rate: 65 P: RI: QRS: -26 QRSD: 66 T: 15 QT: 412 QTc: 434 Interpretive Statements IRREGULAR RHYTHM, NO P-WAVE FOUND LEFTWARD AXIS QRS(T) CONTOUR ABNORMALITY CONSISTENT WITH ANTEROSEPTAL INFARCT AGE UNDETERMINED CONSISTENT WITH INFERIOR INFARCT PROBABLY OLD ABNORMAL ECG RI6.02 Compared to ECG 06/18/2020 10:41:13 Myocardial infarct finding now present Supraventricular tachycardia no longer present
[2020-06-18 18:20] VITALS: BP 153/90
--- NOTE | 2020-06-18 18:30 | NUR ---
Pt here from er. Pt assisted to bed and states "I am always in a wheel chair". Monitor on. VSS, pt denies pain at this time. Admission assessment complete. Bed in low position, call light within reach. Will continue to monitor.
[2020-06-18] MEDS ORDERED: DOCU-109 PO (19:09)
[2020-06-18] MEDS ORDERED: FOLI0.4T5 PO (19:09)
[2020-06-18] MEDS ORDERED: POLY119P19 PO (19:10)
[2020-06-18] MEDS ORDERED: GUAI473L15 PO (19:11)
[2020-06-18] MEDS ORDERED: LORA10TA3 PO (19:11)
[2020-06-18] MEDS ORDERED: POTA10TA12 PO (19:12)
[2020-06-18] MEDS ORDERED: ONDA4TAB7 PO (19:13)
[2020-06-18] MEDS ORDERED: guaiFENesin/CODEINE 100mg/10mg 5 ML LIQUID PO PRN (20:00)
[2020-06-18] MEDS ORDERED: ZOLPIDEM 5 MG TABLET. PO PRN (20:00)
[2020-06-18] MEDS ORDERED: ANTI-COAG MONITOR BY PHARMACY. MC PRN (20:15)
[2020-06-18] MEDS: APIXABAN 5 MG TABLET. PO SCH (20:30)
[2020-06-18] MEDS: SIMVASTATIN 40 MG TABLET. PO SCH (20:30)
[2020-06-18] MEDS: MAGNESIUM OXIDE 400 MG TABLET PO SCH (20:30)
[2020-06-18] MEDS: NYSTATIN TOPICAL POWDER 15GM BOTTLE. TP SCH (20:31)
[2020-06-18] MEDS: ALLOPURINOL 100 MG TABLET. PO SCH (20:31)
[2020-06-18] MEDS: GABAPENTIN 300 MG CAPSULE. PO SCH (20:31)
[2020-06-18] MEDS ORDERED: NON FORMULARY ITEM (Melatonin 2 TAB) PO SCH (21:00)
[2020-06-18 23:00] VITALS: BP 131/62
[2020-06-19 03:00] VITALS: BP 125/64
[2020-06-19 07:00] VITALS: BP 113/63
--- NOTE | 2020-06-19 08:49 | PDOC ---
PROGRESS NOTES Date of Service: DATE: 06/19/20 TIME: 08:49 Chief Complaint Chief Complaint Findings: Decreased bibasilar opacities compared to prior. No consolidation or pleural effusion. Normal heart size. No pneumothorax. Impression: 1. Decreased bibasilar opacities compared to prior. VTE Prophylaxis Ordered VTE Prophylaxis Devices: No VTE Pharmacological Prophylaxi: Yes Assessment/Plan Assessment/Plan Unstable angina BUTCH due to vasomotor nephropathy Elevated BNP Atrial fibrillation Dementia Moderate malnutrition moderate pulmonary hypertension. LABILE HTN CKD STAGE 3B Focal opacities at the lung bases which could be from atelectasis or infiltrate but would consider obtaining a follow-up to ensure this resolves to exclude neoplastic causes. Plan: Will admit patient and consult cardiology; continue to trend troponins NEG X 3 She had echocardiogram 12/07/2017 with normal left ventricular systolic function and ejection fraction 55-60%; will obtain limited echo. Resume home medications FEN - Cardiac diet PPX - Eliquis DNR Dispo - observation for above; patient unable to name surrogate decision-maker at this time. Chest pain, atypical. AMI ruled out. AFIB H/o PE Hypertension UA Justifications for Admission Justifications for Admission Other Justification History of Present Illness History of Present Illness Identification/Chief Complaint Chief Complaint Chest pain Source Source: Chart review, Patient History of Present Illness History of Present Illness Patient is a 79-year-old female with past medical history A. fib, COPD, hypertension, hyperlipidemia, who presents from her care home with complaints of sharp left-sided chest pain that started this morning around 9:00 AM. History is limited due to patient's dementia. When I inquired about patient's current chest pain, she states she "can't remember". She is alert to person and location, but not time. Initial troponin <0.017, EKG with no ST changes. Will admit patient for further medical management. Past Medical History Cardiovascular: HTN, Hyperlipidemia GI: No pertinent hx Heme/Onc: No pertinent hx Hepatobiliary: No pertinent hx Psych: Anxiety Rheumatologic: Gout, Rheumatoid arthritis Infectious disease: No pertinent hx Renal/: No pertinent hx Endocrine: No pertinent hx Past Surgical History Past Surgical History: Cholecystectomy, Tonsillectomy, Hysterectomy Family History Family History: Family History Unknown Social History Smoke: No ALCOHOL: none Drugs: None Current Problem List Problem List Problems Medical Problems: (1) Chest pain at rest Status: Acute Current Medications Current Medications Active Scripts Active Nystop (Nystatin) 60 Gm Powder 1 Celestine TP BID 14 Days [place]co 500+D Tablet (Calcium Carbonate/Vitamin D3) 1 Each Tablet 1 Tab PO BIDWMEALS 30 Days [Ceftriaxone Sodium] 1 GM Vial 1 Gm IVP Q24H 7 Days Colace (Docusate Sodium) 100 Mg Capsule 100 Mg PO BID 30 Days Reported Polyethylene Glycol 3350 17 Gm Powd.pack 17 Gm PO DAILY Bengay (Menthol) 113 Gm Gel..gram. 113 Gm TP PRN Q6HRS Allopurinol 100 Mg Tablet 150 Mg PO HS Gabapentin (Gabapentin) 300 Mg Capsule 300 Mg PO TID Magnesium Oxide 400 Mg Tablet 400 Mg PO TID Eliquis (Apixaban) 5 Mg Tablet 5 Mg PO BID Cranberry (Cranberry Fruit) 400 Mg Tablet 400 Mg PO BID Vitamin D3 (Cholecalciferol (Vitamin D3)) 1,000 Unit Tablet 2 Tab PO BID Melatonin 3 Mg Tablet 2 Tab PO QHS Simvastatin 40 Mg Tablet 1 Tab PO QHS Donepezil Hcl 10 Mg Tablet 1 Tab PO DAILY Duoneb 0.5-3(2.5) Mg/3 Ml (Albuterol/Ipratropium) 3 Ml Ampul.neb 3 Ml NEB QID Lasix (Furosemide) 40 Mg Tablet 1 Tab PO DAILY Escitalopram Oxalate 20 Mg Tablet 1 Tab PO DAILY Methotrexate (Methotrexate Sodium) 2.5 Mg Tablet 7 Tab PO WEEKLY Potassium Chloride (Potassium Chloride) 20 Meq Tablet.er 20 Meq PO DAILY Folic Acid 1 Mg Tablet 1 Tab PO DAILY Aspirin 81 Mg Tab.chew 1 Tab PO DAILY Tylenol (Acetaminophen) 325 Mg Tablet 650 Mg PO Q4HRS PRN Allergies Allergies: Coded Allergies: No Known Drug Allergies (Unverified , 05/03/13) ROS Review of System GENERAL: No history of weight change, weakness or fevers. SKIN: No bruising, hair changes or rashes. EYES: No blurred, double or loss of vision. NOSE AND THROAT: No history of nosebleeds, hoarseness or sore throat. HEART: Chest pain. Denies palpitations. LUNGS: Denies cough, hemoptysis, wheezing or shortness of breath. GASTROINTESTINAL: Denies nausea, vomiting, abdominal pain. GENITOURINARY: Denies dysuria, frequency, urgency, hematuria. NEUROLOGIC: Denies history of numbness, tingling, tremor or weakness. PSYCHIATRIC: Denies anxiety, denies depression. ENDOCRINE: No history of heat or cold intolerance, polyuria or polydipsia. EXTREMITIES: Denies muscle weakness, joint pain, pain on walking or stiffness. 4-13 D/W RN UA PENDING Vitals Vitals Vital Signs Date Time Temp Pulse Resp B/P (MAP) Pulse Ox O2 Delivery O2 Flow Rate FiO2 06/19/20 07:00 97.9 66 16 113/63 (80) 95 Room Air 97.9 Physical Exam Physical Exam General: Alert, Oriented X3, Cooperative, No acute distress HEENT: PERRLA, EOMI Lungs: Clear to auscultation, Normal air movement Heart: RRR, no murmurs Cardiovascular: S1, S2 Abdomen: Normal bowel sounds, Soft, No tenderness Extremities: +1 pitting edema bilaterally. No clubbing, No cyanosis Skin: No rashes, No significant lesion Neuro: Normal speech, Normal tone, Sensation intact Psych/Mental Status: Mental status NL, Mood NL General: Alert, Oriented X3, Cooperative Heart: Regular rate Lungs: Clear Abdomen: Normal bowel sounds, Soft, No masses Extremities: No clubbing, No cyanosis Labs LABS CT of the chest without contrast, 12/10/2017: HISTORY: Right upper lobe pneumonia Comparison is made to a study from 12/31/2016. There is mild calcific plaquing of the thoracic aorta without evidence of aneurysm. Moderate coronary artery calcifications are present. The heart is generally enlarged. No mediastinal adenopathy is evident. There are small bilateral pleural effusions. Moderate atelectasis is present in the left lower lobe. There is moderate patchy infiltrate posteriorly in the right upper lobe. The central bronchi do not appear obstructed. There is mild streaky atelectasis in the right lower lobe. A right middle lobe calcification is noted. Moderate hypertrophic spurring is present in the thoracic spine with bony bridging at multiple levels. IMPRESSION: 1. Cardiomegaly with moderate coronary artery calcifications. 2. Moderate patchy right upper lobe pulmonary infiltrates suggesting pneumonia. 3. Moderate left lower lobe atelectasis. 4. Small bilateral pleural effusions. PQRS Compliance Statement: One or more of the following individualized dose reduction techniques were utilized for this examination: 1. Automated exposure control 2. Adjustment of the mA and/or kV according to patient size 3. Use of iterative reconstruction technique Electronically signed by: Felice Franklin MD (12/10/2017 3:43 PM) [facility] DICTATED and SIGNED BY: FELICE FRANKLIN MD DATE: 12/10/17 1535 TECHNIQUE: Axial CT images obtained through the chest, abdomen and pelvis without contrast. Limited assessment of solid organ structures and vasculature secondary to lack of intravenous contrast. One or more of the following individualized dose reduction techniques were utilized for this examination: 1. Automated exposure control; 2. Adjustment of the mA and/or kV according to patient size; 3. Use of iterative reconstruction technique. FINDINGS: Chest: No evidence of pneumothorax. Focal opacities at the lung bases with small pleural effusions. Severe coronary artery calcific atherosclerosis. Small hiatal hernia. Enlarged lymph node within the mediastinum. For example precarinal region measuring up to 14 mm short axis. Ascending thoracic aorta measures up to approximately 38 mm. Degenerative changes of spine with multilevel central canal and neural foraminal stenosis. Main pulmonary artery measures up to 37 mm. Abdomen and pelvis: Calcific atherosclerosis throughout abdominal aorta. No intrahepatic bile duct dilation with postcholecystectomy changes. No peripancreatic fluid collection. Spleen unremarkable. Urinary bladder has minimal urine within with a eben of air. There is some indistinctness of adjacent fat. Minimal prominence of bilateral extrarenal pelvis. No definite radiopaque obstructive ureter stone. Degenerative changes of spine with scoliotic curvature and multilevel central canal and neural foraminal stenosis. Colonic diverticulosis. Suspected cystic lesion right adnexa measuring up to 32 mm. No periappendiceal inflammatory changes. There couple prominent loops of small bowel without high-grade transition point to suggest obstruction. Osseous demineralization. Couple sclerotic foci in the left iliac wing. Commonly from bone island but nonspecific appearance. IMPRESSION: * Focal opacities at the lung bases which could be from atelectasis or infiltrate but would consider obtaining a follow-up to ensure this resolves to exclude neoplastic causes. There is also small pleural effusions. * Severe coronary artery calcific atherosclerosis. * Lymphadenopathy within the mediastinum which could be reactive in nature but attention on follow-up to ensure that this does not increase to exclude neoplastic causes. * Indistinctness the fat adjacent to the urinary bladder with some air within the urinary bladder. Would correlate with symptoms in the region since causes such as cystitis could have this appearance. Bladder wall lesion not excluded. * Suspected cystic lesion in the right adnexa. It may be helpful to obtain a nonemergent pelvic ultrasound to further evaluate. Electronically signed by: Romi Gan MD (06/06/2019 4:58 AM) [id number] DICTATED and SIGNED BY: ROMI GAN MD DATE: 06/06/19 0458 Laboratory Tests Test 06/18/20 12:42 06/18/20 16:30 06/18/20 18:10 White Blood Count 11.4 x10^3/uL (4.0-11.0) Red Blood Count 4.67 x10^6/uL (3.50-5.40) Hemoglobin 15.2 g/dL (12.0-15.5) Hematocrit 45.4 % (36.0-47.0) Mean Corpuscular Volume 97 fL (79-100) Mean Corpuscular Hemoglobin 33 pg (25-35) Mean Corpuscular Hemoglobin Concent 33 g/dL (31-37) Red Cell Distribution Width 16.7 % (11.5-14.5) Platelet Count 393 x10^3/uL (140-400) Neutrophils (%) (Auto) 82 % (31-73) Lymphocytes (%) (Auto) 12 % (24-48) Monocytes (%) (Auto) 5 % (0-9) Eosinophils (%) (Auto) 1 % (0-3) Basophils (%) (Auto) 0 % (0-3) Neutrophils # (Auto) 9.4 x10^3/uL (1.8-7.7) Lymphocytes # (Auto) 1.4 x10^3/uL (1.0-4.8) Monocytes # (Auto) 0.5 x10^3/uL (0.0-1.1) Eosinophils # (Auto) 0.1 x10^3/uL (0.0-0.7) Basophils # (Auto) 0.0 x10^3/uL (0.0-0.2) Prothrombin Time 16.2 SEC (11.7-14.0) Prothromb Time International Ratio 1.3 (0.8-1.1) Activated Partial Thromboplast Time 39 SEC (24-38) Sodium Level 144 mmol/L (136-145) Potassium Level 4.6 mmol/L (3.5-5.1) Chloride Level 102 mmol/L (98-107) Carbon Dioxide Level 30 mmol/L (21-32) Anion Gap 12 (6-14) Blood Urea Nitrogen 14 mg/dL (7-20) Creatinine 1.2 mg/dL (0.6-1.0) Estimated GFR (Cockcroft-Gault) 43.2 BUN/Creatinine Ratio 12 (6-20) Glucose Level 92 mg/dL (70-99) Calcium Level 9.0 mg/dL (8.5-10.1) Magnesium Level 2.2 mg/dL (1.8-2.4) Total Bilirubin 0.5 mg/dL (0.2-1.0) Aspartate Amino Transf (AST/SGOT) 28 U/L (15-37) Alanine Aminotransferase (ALT/SGPT) 28 U/L (14-59) Alkaline Phosphatase 129 U/L (46-116) Troponin I Quantitative < 0.017 ng/mL (0.000-0.055) < 0.017 ng/mL (0.000-0.055) < 0.017 ng/mL (0.000-0.055) OX-Nzj-[id number]-Type Natriuretic Peptide 2824 pg/mL (0-449) Total Protein 7.8 g/dL (6.4-8.2) Albumin 3.3 g/dL (3.4-5.0) Albumin/Globulin Ratio 0.7 (1.0-1.7) Assessment and Plan Assessmemt and Plan Problems Medical Problems: (1) Chest pain at rest Status: Acute Comment Review of Relevant I have reviewed the following items jane (where applicable) has been applied. Labs Laboratory Tests Test 06/18/20 12:42 06/18/20 16:30 06/18/20 18:10 White Blood Count 11.4 x10^3/uL (4.0-11.0) Red Blood Count 4.67 x10^6/uL (3.50-5.40) Hemoglobin 15.2 g/dL (12.0-15.5) Hematocrit 45.4 % (36.0-47.0) Mean Corpuscular Volume 97 fL (79-100) Mean Corpuscular Hemoglobin 33 pg (25-35) Mean Corpuscular Hemoglobin Concent 33 g/dL (31-37) Red Cell Distribution Width 16.7 % (11.5-14.5) Platelet Count 393 x10^3/uL (140-400) Neutrophils (%) (Auto) 82 % (31-73) Lymphocytes (%) (Auto) 12 % (24-48) Monocytes (%) (Auto) 5 % (0-9) Eosinophils (%) (Auto) 1 % (0-3) Basophils (%) (Auto) 0 % (0-3) Neutrophils # (Auto) 9.4 x10^3/uL (1.8-7.7) Lymphocytes # (Auto) 1.4 x10^3/uL (1.0-4.8) Monocytes # (Auto) 0.5 x10^3/uL (0.0-1.1) Eosinophils # (Auto) 0.1 x10^3/uL (0.0-0.7) Basophils # (Auto) 0.0 x10^3/uL (0.0-0.2) Prothrombin Time 16.2 SEC (11.7-14.0) Prothromb Time International Ratio 1.3 (0.8-1.1) Activated Partial Thromboplast Time 39 SEC (24-38) Sodium Level 144 mmol/L (136-145) Potassium Level 4.6 mmol/L (3.5-5.1) Chloride Level 102 mmol/L (98-107) Carbon Dioxide Level 30 mmol/L (21-32) Anion Gap 12 (6-14) Blood Urea Nitrogen 14 mg/dL (7-20) Creatinine 1.2 mg/dL (0.6-1.0) Estimated GFR (Cockcroft-Gault) 43.2 BUN/Creatinine Ratio 12 (6-20) Glucose Level 92 mg/dL (70-99) Calcium Level 9.0 mg/dL (8.5-10.1) Magnesium Level 2.2 mg/dL (1.8-2.4) Total Bilirubin 0.5 mg/dL (0.2-1.0) Aspartate Amino Transf (AST/SGOT) 28 U/L (15-37) Alanine Aminotransferase (ALT/SGPT) 28 U/L (14-59) Alkaline Phosphatase 129 U/L (46-116) Troponin I Quantitative < 0.017 ng/mL (0.000-0.055) < 0.017 ng/mL (0.000-0.055) < 0.017 ng/mL (0.000-0.055) KP-Wue-Y-Type Natriuretic Peptide 2824 pg/mL (0-449) Total Protein 7.8 g/dL (6.4-8.2) Albumin 3.3 g/dL (3.4-5.0) Albumin/Globulin Ratio 0.7 (1.0-1.7) Laboratory Tests Test 06/18/20 12:42 06/18/20 16:30 06/18/20 18:10 White Blood Count 11.4 x10^3/uL (4.0-11.0) Red Blood Count 4.67 x10^6/uL (3.50-5.40) Hemoglobin 15.2 g/dL (12.0-15.5) Hematocrit 45.4 % (36.0-47.0) Mean Corpuscular Volume 97 fL (79-100) Mean Corpuscular Hemoglobin 33 pg (25-35) Mean Corpuscular Hemoglobin Concent 33 g/dL (31-37) Red Cell Distribution Width 16.7 % (11.5-14.5) Platelet Count 393 x10^3/uL (140-400) Neutrophils (%) (Auto) 82 % (31-73) Lymphocytes (%) (Auto) 12 % (24-48) Monocytes (%) (Auto) 5 % (0-9) Eosinophils (%) (Auto) 1 % (0-3) Basophils (%) (Auto) 0 % (0-3) Neutrophils # (Auto) 9.4 x10^3/uL (1.8-7.7) Lymphocytes # (Auto) 1.4 x10^3/uL (1.0-4.8) Monocytes # (Auto) 0.5 x10^3/uL (0.0-1.1) Eosinophils # (Auto) 0.1 x10^3/uL (0.0-0.7) Basophils # (Auto) 0.0 x10^3/uL (0.0-0.2) Prothrombin Time 16.2 SEC (11.7-14.0) Prothromb Time International Ratio 1.3 (0.8-1.1) Activated Partial Thromboplast Time 39 SEC (24-38) Sodium Level 144 mmol/L (136-145) Potassium Level 4.6 mmol/L (3.5-5.1) Chloride Level 102 mmol/L (98-107) Carbon Dioxide Level 30 mmol/L (21-32) Anion Gap 12 (6-14) Blood Urea Nitrogen 14 mg/dL (7-20) Creatinine 1.2 mg/dL (0.6-1.0) Estimated GFR (Cockcroft-Gault) 43.2 BUN/Creatinine Ratio 12 (6-20) Glucose Level 92 mg/dL (70-99) Calcium Level 9.0 mg/dL (8.5-10.1) Magnesium Level 2.2 mg/dL (1.8-2.4) Total Bilirubin 0.5 mg/dL (0.2-1.0) Aspartate Amino Transf (AST/SGOT) 28 U/L (15-37) Alanine Aminotransferase (ALT/SGPT) 28 U/L (14-59) Alkaline Phosphatase 129 U/L (46-116) Troponin I Quantitative < 0.017 ng/mL (0.000-0.055) < 0.017 ng/mL (0.000-0.055) < 0.017 ng/mL (0.000-0.055) DK-Dos-U-Type Natriuretic Peptide 2824 pg/mL (0-449) Total Protein 7.8 g/dL (6.4-8.2) Albumin 3.3 g/dL (3.4-5.0) Albumin/Globulin Ratio 0.7 (1.0-1.7) Medications Current Medications Ondansetron HCl (Zofran) 4 mg PRN Q6HRS PRN IVP NAUSEA/VOMITING; Start 06/18/20 at 16:00 Al Hydroxide/Mg Hydroxide (Mylanta Plus Xs) 30 ml PRN Q3HRS PRN PO HEARTBURN / GAS; Start 06/18/20 at 16:00 Calcium Carbonate/ Glycine (Tums) 500 mg PRN Q3HRS PRN PO UPSET STOMACH Last administered on 06/18/20at 22:28; Start 06/18/20 at 16:00 Morphine Sulfate (Morphine Sulfate) 2 mg PRN Q1HR PRN IV PAIN-SEE COMMENTS; Start 06/18/20 at 16:00 Acetaminophen/ Hydrocodone Bitart (Lortab 5/325) 1 tab PRN Q4HRS PRN PO MILD PAIN 1-3; Start 06/18/20 at 16:00 Acetaminophen (Tylenol) 650 mg PRN Q6HRS PRN PO Headaches, Temp > 101.5F; Start 06/18/20 at 16:00 Magnesium Hydroxide (Milk Of Magnesia) 2,400 mg PRN Q12HR PRN PO CONSTIPATION; Start 06/18/20 at 16:00 Bisacodyl (Dulcolax Supp) 10 mg PRN DAILY PRN OR CONSTIPATION; Start 06/18/20 at 16:00 Allopurinol (Zyloprim) 150 mg HS PO Last administered on 06/18/20at 20:31; Start 06/18/20 at 21:00 Apixaban (Eliquis) 5 mg BID PO Last administered on 06/18/20at 20:30; Start 06/18/20 at 21:00 Docusate Sodium (Colace) 100 mg DAILY PO ; Start 06/19/20 at 09:00 Donepezil HCl (Aricept) 10 mg DAILY PO ; Start 06/19/20 at 09:00 Furosemide (Lasix) 40 mg DAILY PO ; Start 06/19/20 at 09:00 Gabapentin (Neurontin) 300 mg TID PO Last administered on 06/18/20at 20:31; Start 06/18/20 at 21:00 Magnesium Oxide (Magnesium Oxide) 400 mg TID PO Last administered on 06/18/20at 20:30; Start 06/18/20 at 21:00 Methotrexate (Rheumatrex) 17.5 mg Morgan PO ; Start 06/24/20 at 09:00 Nystatin (Nystop) 1 ceelstine BID TP ; Start 06/18/20 at 21:00 Polyethylene Glycol (miraLAX PACKET) 17 gm DAILY PO ; Start 06/19/20 at 09:00 Potassium Chloride (Klor-Con) 10 meq DAILY PO ; Start 06/19/20 at 09:00 Simvastatin (Zocor) 40 mg QHS PO Last administered on 06/18/20at 20:30; Start 06/18/20 at 21:00 Citalopram Hydrobromide (CeleXA) 40 mg DAILY PO ; Start 06/19/20 at 09:00 Folic Acid (Folic Acid) 0.5 mg DAILY PO ; Start 06/19/20 at 09:00 Cetirizine HCl (ZyrTEC) 10 mg DAILY PO ; Start 06/19/20 at 09:00 Non-Formulary Medication (Melatonin ) 2 tab QHS PO ; Start 06/18/20 at 21:00; Status UNV Guaifenesin/ Codeine Phosphate (Robitussin Ac) 5 ml PRN Q6HRS PRN PO COUGH; Start 06/18/20 at 20:00 Zolpidem Tartrate (Ambien) 5 mg PRN QHS PRN PO INSOMNIA; Start 06/18/20 at 20:00 Info (Anti-Coagulation Monitoring By Pharmacy) 1 each PRN DAILY PRN MC SEE COMMENTS; Start 06/18/20 at 20:15 Active Scripts Active Nystop (Nystatin) 60 Gm Powder 1 Celestine TP BID 14 Days Reported Zofran (Ondansetron Hcl) 4 Mg Tablet 1 Tab PO Q6HRS PRN Klor-Con 10 (Potassium Chloride) 10 Meq Tablet.er 1 Tab PO DAILY 30 Days Loratadine 10 Mg Tablet 1 Tab PO DAILY Guaifenesin Ac Cough Syrup (Guaifenesin/Codeine Phosphate) 473 Ml Liquid 5 Ml PO PRN Q6HRS PRN Glycolax (Polyethylene Glycol 3350) 119 Gm Powder 17 Gm PO DAILY Take according to instructions on printed sheet Folic Acid 0.4 Mg Tablet 0.4 Mg PO DAILY Colace (Docusate Sodium) 100 Mg Capsule 1 Cap PO DAILY 30 Days Allopurinol 100 Mg Tablet 150 Mg PO HS Gabapentin (Gabapentin) 300 Mg Capsule 300 Mg PO TID Magnesium Oxide 400 Mg Tablet 400 Mg PO TID Eliquis (Apixaban) 5 Mg Tablet 5 Mg PO BID Cranberry (Cranberry Fruit) 400 Mg Tablet 400 Mg PO BID Melatonin 3 Mg Tablet 2 Tab PO QHS Simvastatin 40 Mg Tablet 1 Tab PO QHS Donepezil Hcl 10 Mg Tablet 1 Tab PO DAILY Lasix (Furosemide) 40 Mg Tablet 1 Tab PO DAILY Escitalopram Oxalate 20 Mg Tablet 1 Tab PO DAILY Methotrexate (Methotrexate Sodium) 2.5 Mg Tablet 7 Tab PO WEEKLY Tylenol (Acetaminophen) 325 Mg Tablet 650 Mg PO Q4HRS PRN Vitals/I & O Vital Sign - Last 24 Hours 06/18/20 06/18/20 06/18/2012/21 12:05 12:14 12:44 13:14 Temp 97.9 97.9 Pulse 68 66 82 63 Resp 20 B/P (MAP) 146/94 (111) 146/94 (111) 161/73 (102) 170/92 (118) Pulse Ox 96 98 98 97 O2 Delivery Room Air Room Air Room Air Room Air 06/18/20 06/18/20 06/18/20 06/18/20 13:32 13:44 14:14 15:14 Pulse 72 79 79 70 Resp 18 B/P (MAP) 167/72 (103) 150/66 (94) 171/74 (106) 180/79 (112) Pulse Ox 98 99 99 97 O2 Delivery Room Air Room Air Room Air Room Air 06/18/20 06/18/20 06/18/20 06/18/20 17:12 18:20 18:43 23:00 Temp 97.2 99.0 97.2 99.0 Pulse 70 64 68 Resp 18 18 B/P (MAP) 162/70 (100) 153/90 (111) 131/62 (85) Pulse Ox 97 97 95 O2 Delivery Room Air Room Air Room Air Room Air 06/19/20 06/19/20 03:00 07:00 Temp 98.9 97.9 98.9 97.9 Pulse 55 66 Resp 20 16 B/P (MAP) 125/64 (84) 113/63 (80) Pulse Ox 97 95 O2 Delivery Room Air Room Air Intake and Output 06/18/20 06/18/20 06/19/20 15:00 23:00 07:00 Intake Total 0 ml 300 ml Output Total 550 ml Balance 0 ml -250 ml Justicifation of Admission Dx: Justifications for Admission: Justification of Admission Dx: Yes Angina: Cresendo Worsening of Sym DAPHNE SILVA MD Jun 19, 2020 08:49
[2020-06-19] MEDS: NYSTATIN TOPICAL POWDER 15GM BOTTLE. TP SCH ×2 (09:00→21:39)
[2020-06-19] MEDS: MAGNESIUM OXIDE 400 MG TABLET PO SCH ×3 (09:55→21:00)
[2020-06-19] MEDS: GABAPENTIN 300 MG CAPSULE. PO SCH ×3 (09:55→21:39)
[2020-06-19] MEDS: POTASSIUM CHLORIDE 10 MEQ TABLET.ER. PO SCH (09:55)
[2020-06-19] MEDS: CITALOPRAM 20 MG TABLET. PO SCH (09:56)
[2020-06-19] MEDS: DOCUSATE SODIUM 100 MG CAPSULE. PO SCH (09:56)
[2020-06-19] MEDS: DONEPEZIL HCL 10 MG TABLET. PO SCH (09:56)
[2020-06-19] MEDS: APIXABAN 5 MG TABLET. PO SCH ×2 (09:56→21:40)
[2020-06-19] MEDS: CETIRIZINE HCL 10 MG TABLET. PO SCH (09:57)
[2020-06-19] MEDS: FUROSEMIDE 40 MG TABLET. PO SCH (09:57)
[2020-06-19] MEDS: FOLIC ACID 1 MG TABLET. PO SCH (09:58)
[2020-06-19] MEDS: POLYETHYLENE GLYCOL 3350 17 GM PACKET. PO SCH (09:59)
[2020-06-19 10:42] VITALS: BP 114/78
--- NOTE | 2020-06-19 11:01 | PDOC2 ---
GA GALARZA AUTOCUTTER 06/19/20 1101: CARDIAC CONSULT DATE OF CONSULT Date of Consult DATE: 06/19/20 TIME: 10:55 REASON FOR CONSULT Reason for Consult: Chest pain REFERRING PHYSICIAN Referring Physician: Dr. Kohli SOURCE Source: Chart review, Patient HISTORY OF PRESENT ILLNESS HISTORY OF PRESENT ILLNESS This is an 79 yo female who presented from nursing facility secondary to chest pain. Patient reports having chest pain yesterday. Unable to describe. Reports she "had a massive heart attack, but came out of it". Per chart review, describes left upper chest pain without any radiation or associated symptoms. She denies any chest pain presently. No dizziness, diaphoresis, palpitations, or nausea/vomiting. PAST MEDICAL HISTORY Cardiovascular: AFIB, HTN, Hyperlipidemia Pulmonary: Pulmonary embolus CENTRAL NERVOUS SYSTEM: CVA, Dementia Psych: Anxiety, Depression Rheumatologic: Gout, Rheumatoid arthritis PAST SURGICAL HISTORY Past Surgical History: Cholecystectomy, Cataract Removal, Tonsillectomy, Hysterectomy FAMILY HISTORY Family History: Family History Unknown SOCIAL HISTORY Smoke: No ALCOHOL: none Drugs: None Lives: Group Home CURRENT MEDICATIONS CURRENT MEDICATIONS Current Medications Medications (Trade) Dose Ordered Sig/Shirin Route PRN Reason Start Time Stop Time Status Last Admin Dose Admin Calcium Carbonate/ Glycine (Tums) 500 mg PRN Q3HRS PRN PO UPSET STOMACH 06/18/20 16:00 06/18/20 22:28 Allopurinol (Zyloprim) 150 mg HS PO 06/18/20 21:00 06/18/20 20:31 Apixaban (Eliquis) 5 mg BID PO 06/18/20 21:00 06/19/20 09:56 Docusate Sodium (Colace) 100 mg DAILY PO 06/19/20 09:00 06/19/20 09:56 Donepezil HCl (Aricept) 10 mg DAILY PO 06/19/20 09:00 06/19/20 09:56 Furosemide (Lasix) 40 mg DAILY PO 06/19/20 09:00 06/19/20 09:57 Gabapentin (Neurontin) 300 mg TID PO 06/18/20 21:00 06/19/20 09:55 Magnesium Oxide (Magnesium Oxide) 400 mg TID PO 06/18/20 21:00 06/19/20 09:55 Polyethylene Glycol (miraLAX PACKET) 17 gm DAILY PO 06/19/20 09:00 06/19/20 09:59 Potassium Chloride (Klor-Con) 10 meq DAILY PO 06/19/20 09:00 06/19/20 09:55 Simvastatin (Zocor) 40 mg QHS PO 06/18/20 21:00 06/18/20 20:30 Citalopram Hydrobromide (CeleXA) 40 mg DAILY PO 06/19/20 09:00 06/19/20 09:56 Folic Acid (Folic Acid) 0.5 mg DAILY PO 06/19/20 09:00 06/19/20 09:58 Cetirizine HCl (ZyrTEC) 10 mg DAILY PO 06/19/20 09:00 06/19/20 09:57 Info (Anti-Coagulation Monitoring By Pharmacy) 1 each PRN DAILY PRN MC SEE COMMENTS 06/18/20 20:15 06/19/20 09:05 ALLERGIES ALLERGIES: Coded Allergies: No Known Drug Allergies (Unverified , 05/03/13) ROS Review of System 14 point ROS conducted with pertinent positives notes noted above in HPI, although limited due to baseline dementia PHYSICAL EXAM General: Alert, Cooperative, No acute distress, Other (oriented to person and place) HEENT: Atraumatic Lungs: Clear to auscultation Heart: Regular rate Abdomen: Soft, No tenderness Extremities: No edema, Normal pulses Skin: No significant lesion Neuro: Normal speech, Sensation intact Psych/Mental Status: Other (forgetful ) MUSCULOSKELETAL: Osteoarthritic changes both hands VITALS/I&O VITALS/I&O: Vital Signs Date Time Temp Pulse Resp B/P (MAP) Pulse Ox O2 Delivery O2 Flow Rate FiO2 06/19/20 10:42 98.3 61 16 114/78 (90) 92 Room Air 98.3 I & O 06/18/20 06/18/20 06/19/20 15:00 23:00 07:00 Intake Total 0 ml 300 ml Output Total 550 ml Balance 0 ml -250 ml LABS Lab: Laboratory Tests Test 06/18/20 12:42 06/18/20 16:30 06/18/20 18:10 White Blood Count 11.4 x10^3/uL (4.0-11.0) H Red Blood Count 4.67 x10^6/uL (3.50-5.40) Hemoglobin 15.2 g/dL (12.0-15.5) Hematocrit 45.4 % (36.0-47.0) Mean Corpuscular Volume 97 fL (79-100) Mean Corpuscular Hemoglobin 33 pg (25-35) Mean Corpuscular Hemoglobin Concent 33 g/dL (31-37) Red Cell Distribution Width 16.7 % (11.5-14.5) H Platelet Count 393 x10^3/uL (140-400) Neutrophils (%) (Auto) 82 % (31-73) H Lymphocytes (%) (Auto) 12 % (24-48) L Monocytes (%) (Auto) 5 % (0-9) Eosinophils (%) (Auto) 1 % (0-3) Basophils (%) (Auto) 0 % (0-3) Neutrophils # (Auto) 9.4 x10^3/uL (1.8-7.7) H Lymphocytes # (Auto) 1.4 x10^3/uL (1.0-4.8) Monocytes # (Auto) 0.5 x10^3/uL (0.0-1.1) Eosinophils # (Auto) 0.1 x10^3/uL (0.0-0.7) Basophils # (Auto) 0.0 x10^3/uL (0.0-0.2) Prothrombin Time 16.2 SEC (11.7-14.0) H Prothrombin Time INR 1.3 (0.8-1.1) H Activated Partial Thromboplast Time 39 SEC (24-38) H Sodium Level 144 mmol/L (136-145) Potassium Level 4.6 mmol/L (3.5-5.1) Chloride Level 102 mmol/L (98-107) Carbon Dioxide Level 30 mmol/L (21-32) Anion Gap 12 (6-14) Blood Urea Nitrogen 14 mg/dL (7-20) Creatinine 1.2 mg/dL (0.6-1.0) H Estimated GFR (Cockcroft-Gault) 43.2 BUN/Creatinine Ratio 12 (6-20) Glucose Level 92 mg/dL (70-99) Calcium Level 9.0 mg/dL (8.5-10.1) Magnesium Level 2.2 mg/dL (1.8-2.4) Total Bilirubin 0.5 mg/dL (0.2-1.0) Aspartate Amino Transferase (AST) 28 U/L (15-37) Alanine Aminotransferase (ALT) 28 U/L (14-59) Alkaline Phosphatase 129 U/L (46-116) H Troponin I Quantitative < 0.017 ng/mL (0.000-0.055) < 0.017 ng/mL (0.000-0.055) < 0.017 ng/mL (0.000-0.055) LG-Ygt-[id number]-Type Natriuretic Peptide 2824 pg/mL (0-449) H Total Protein 7.8 g/dL (6.4-8.2) Albumin 3.3 g/dL (3.4-5.0) L Albumin/Globulin Ratio 0.7 (1.0-1.7) L Laboratory Tests 06/18/20 12:42 Laboratory Tests 06/18/20 12:42 ECHOCARDIOGRAM ECHOCARDIOGRAM <Conclusion> The left ventricle is normal size. The left ventricular systolic function is normal and the ejection fraction is within normal range. The Ejection Fraction is 55-60%. There is no significant aortic valvular stenosis. Doppler and Color Flow revealed no significant aortic regurgitation. Doppler and Color-flow revealed trace to mild mitral regurgitation. Doppler and Color Flow revealed mild tricuspid regurgitation. There is moderate pulmonary hypertension. The PA pressure was estimated at 41 mmHg. DATE: 12/07/17 1211 ASSESSMENT/PLAN ASSESSMENT/PLAN 1. Chest pain, unable to describe. AMI ruled out. 2. AFIB, slow ventricular rate. Lowest 41. No pauses. ? chronic AFIB. On Eliquis for stroke prophylaxis 3. H/o PE 4. Accelerated hypertension; now controlled 5. Hyperlipidemia; statin 6. Dementia Recommendations Lipids Echo to assess LV systolic function Statin therapy Avoid AV gilbert blocking agents Eliquis for stroke prophylaxis Consider outpatient ischemic evaluation Supportive care NESSA NAVARRO MD 06/19/20 1702: CARDIAC CONSULT ASSESSMENT/PLAN ASSESSMENT/PLAN The patient was seen and interviewed as well as examined at the bedside. The chart was reviewed. The case was discussed. Agree with the plan of care. GA GALARZA APRN Jun 19, 2020 11:01 NESSA NAVARRO MD Jun 19, 2020 17:02
[2020-06-19 14:17] LABS: BASO % 0 % (0-3); EOS # 0.1 x10^3/uL (0.0-0.7); EOS % 1 % (0-3); HEMATOCRIT 42.2 % (36.0-47.0); LYMPH # 1.3 x10^3/uL (1.0-4.8); LYMPH % 16 % (24-48); MEAN CORPUSCULAR HEMOGLOBIN 32 pg (25-35); MEAN CORPUSCULAR HGB CONC 33 g/dL (31-37); MEAN CORPUSCULAR VOLUME 98 fL (79-100); MONO # 0.3 x10^3/uL (0.0-1.1); MONO % 3 % (0-9); NEUT # 6.6 x10^3/uL (1.8-7.7); NEUT % 79 % (31-73); PLATELET COUNT 363 x10^3/uL (140-400); RED BLOOD COUNT 4.33 x10^6/uL (3.50-5.40); RED CELL DISTRIBUTION WIDTH 16.6 % (11.5-14.5); WHITE BLOOD COUNT 8.3 x10^3/uL (4.0-11.0)
--- NOTE | 2020-06-19 14:32 | NUR ---
SS following for discharge planning. SS reviewed pt chart and discussed with pt RN. Pt is LT resident from [facility], ; fax [phone]. Pt is currently on room air. Cardiology consulted. ECHO ordered. Pt is able to return to facility when medically stable for discharge. Per facility, no COVID19 test needed for return. SS will continue to follow for discharge planning.
[2020-06-19 14:36] VITALS: BP 96/65
[2020-06-19 14:36] LABS: ALBUMIN 3.1 g/dL (3.4-5.0); ALBUMIN/GLOBULIN RATIO 0.8 (1.0-1.7); CALCIUM 8.7 mg/dL (8.5-10.1); CREATININE 1.3 mg/dL (0.6-1.0); GFR 39.4; POTASSIUM 3.7 mmol/L (3.5-5.1); TOTAL BILIRUBIN 0.5 mg/dL (0.2-1.0)
[2020-06-19 19:00] VITALS: BP 96/54
[2020-06-19] MEDS: ALLOPURINOL 100 MG TABLET. PO SCH (21:39)
[2020-06-19] MEDS: SIMVASTATIN 40 MG TABLET. PO SCH (21:39)
[2020-06-19 22:03] VITALS: BP 115/67
[2020-06-20 02:04] VITALS: BP 113/58
[2020-06-20 07:00] VITALS: BP 113/60
[2020-06-20 08:00] LABS: BILIRUBIN,URINE NEGATIVE (NEG); CLARITY,URINE CLOUDY; COLOR,URINE YELLOW; NITRITE,URINE NEGATIVE (NEG); PH,URINE 6.5 (<5.0-8.0); PROTEIN,URINE 30 mg/dL (NEG-TRACE); UROBILINOGEN,URINE 0.2 mg/dL (0.2 mg/dL)
[2020-06-20 08:27] LABS: BACTERIA,URINE MANY /HPF (0-FEW); WBC,URINE TNTC /HPF (0-4)
--- NOTE | 2020-06-20 08:35 | PDOC ---
PROGRESS NOTES Date of Service: DATE: 06/20/20 TIME: 08:34 Chief Complaint Chief Complaint Findings: Decreased bibasilar opacities compared to prior. No consolidation or pleural effusion. Normal heart size. No pneumothorax. Impression: 1. Decreased bibasilar opacities compared to prior. VTE Prophylaxis Ordered VTE Prophylaxis Devices: No VTE Pharmacological Prophylaxi: Yes Assessment/Plan Assessment/Plan Unstable angina BUTCH due to vasomotor nephropathy Elevated BNP Atrial fibrillation Dementia Moderate malnutrition moderate pulmonary hypertension. LABILE HTN CKD STAGE 3B Focal opacities at the lung bases which could be from atelectasis or infiltrate but would consider obtaining a follow-up to ensure this resolves to exclude neoplastic causes. Grade III-reversible restrictive diastolic dysfunction. by echo 4-14 uti Plan: Will admit patient and consult cardiology; continue to trend troponins NEG X 3 She had echocardiogram 12/07/2017 with normal left ventricular systolic function and ejection fraction 55-60%; will obtain limited echo. Resume home medications FEN - Cardiac diet PPX - Eliquis DNR Dispo - observation for above; patient unable to name surrogate decision-maker at this time. Chest pain, atypical. AMI ruled out. AFIB H/o PE Hypertension UA Avoid AV gilbert blocking agents Eliquis for stroke prophylaxis Consider outpatient ischemic evaluation po augmentin bid x 10 days Justifications for Admission Justifications for Admission Other Justification History of Present Illness History of Present Illness Identification/Chief Complaint Chief Complaint Chest pain Source Source: Chart review, Patient History of Present Illness History of Present Illness Patient is a 79-year-old female with past medical history A. fib, COPD, hypertension, hyperlipidemia, who presents from her custodial with complaints of sharp left-sided chest pain that started this morning around 9:00 AM. History is limited due to patient's dementia. When I inquired about patient's current chest pain, she states she "can't remember". She is alert to person and location, but not time. Initial troponin <0.017, EKG with no ST changes. Will admit patient for further medical management. Past Medical History Cardiovascular: HTN, Hyperlipidemia GI: No pertinent hx Heme/Onc: No pertinent hx Hepatobiliary: No pertinent hx Psych: Anxiety Rheumatologic: Gout, Rheumatoid arthritis Infectious disease: No pertinent hx Renal/: No pertinent hx Endocrine: No pertinent hx Past Surgical History Past Surgical History: Cholecystectomy, Tonsillectomy, Hysterectomy Family History Family History: Family History Unknown Social History Smoke: No ALCOHOL: none Drugs: None Current Problem List Problem List Problems Medical Problems: (1) Chest pain at rest Status: Acute Current Medications Current Medications Active Scripts Active Nystop (Nystatin) 60 Gm Powder 1 Celestine TP BID 14 Days [place] 500+D Tablet (Calcium Carbonate/Vitamin D3) 1 Each Tablet 1 Tab PO BIDWMEALS 30 Days [Ceftriaxone Sodium] 1 GM Vial 1 Gm IVP Q24H 7 Days Colace (Docusate Sodium) 100 Mg Capsule 100 Mg PO BID 30 Days Reported Polyethylene Glycol 3350 17 Gm Powd.pack 17 Gm PO DAILY Bengay (Menthol) 113 Gm Gel..gram. 113 Gm TP PRN Q6HRS Allopurinol 100 Mg Tablet 150 Mg PO HS Gabapentin (Gabapentin) 300 Mg Capsule 300 Mg PO TID Magnesium Oxide 400 Mg Tablet 400 Mg PO TID Eliquis (Apixaban) 5 Mg Tablet 5 Mg PO BID Cranberry (Cranberry Fruit) 400 Mg Tablet 400 Mg PO BID Vitamin D3 (Cholecalciferol (Vitamin D3)) 1,000 Unit Tablet 2 Tab PO BID Melatonin 3 Mg Tablet 2 Tab PO QHS Simvastatin 40 Mg Tablet 1 Tab PO QHS Donepezil Hcl 10 Mg Tablet 1 Tab PO DAILY Duoneb 0.5-3(2.5) Mg/3 Ml (Albuterol/Ipratropium) 3 Ml Ampul.neb 3 Ml NEB QID Lasix (Furosemide) 40 Mg Tablet 1 Tab PO DAILY Escitalopram Oxalate 20 Mg Tablet 1 Tab PO DAILY Methotrexate (Methotrexate Sodium) 2.5 Mg Tablet 7 Tab PO WEEKLY Potassium Chloride (Potassium Chloride) 20 Meq Tablet.er 20 Meq PO DAILY Folic Acid 1 Mg Tablet 1 Tab PO DAILY Aspirin 81 Mg Tab.chew 1 Tab PO DAILY Tylenol (Acetaminophen) 325 Mg Tablet 650 Mg PO Q4HRS PRN Allergies Allergies: Coded Allergies: No Known Drug Allergies (Unverified , 05/03/13) ROS Review of System GENERAL: No history of weight change, weakness or fevers. SKIN: No bruising, hair changes or rashes. EYES: No blurred, double or loss of vision. NOSE AND THROAT: No history of nosebleeds, hoarseness or sore throat. HEART: Chest pain. Denies palpitations. LUNGS: Denies cough, hemoptysis, wheezing or shortness of breath. GASTROINTESTINAL: Denies nausea, vomiting, abdominal pain. GENITOURINARY: Denies dysuria, frequency, urgency, hematuria. NEUROLOGIC: Denies history of numbness, tingling, tremor or weakness. PSYCHIATRIC: Denies anxiety, denies depression. ENDOCRINE: No history of heat or cold intolerance, polyuria or polydipsia. EXTREMITIES: Denies muscle weakness, joint pain, pain on walking or stiffness. 4-13 D/W RN UA PENDING 06-20 echo reviewed Avoid AV gilbert blocking agents Eliquis for stroke prophylaxis Consider outpatient ischemic evaluation d/c planning 33 min Vitals Vitals Vital Signs Date Time Temp Pulse Resp B/P (MAP) Pulse Ox O2 Delivery O2 Flow Rate FiO2 06/20/20 02:04 97.7 65 16 113/58 (76) 96 Room Air 97.7 Physical Exam Physical Exam General: Alert, Oriented X3, Cooperative, No acute distress HEENT: PERRLA, EOMI Lungs: Clear to auscultation, Normal air movement Heart: RRR, no murmurs Cardiovascular: S1, S2 Abdomen: Normal bowel sounds, Soft, No tenderness Extremities: +1 pitting edema bilaterally. No clubbing, No cyanosis Skin: No rashes, No significant lesion Neuro: Normal speech, Normal tone, Sensation intact Psych/Mental Status: Mental status NL, Mood NL General: Alert, Cooperative, No acute distress, Other (oriented to person and place) Heart: Regular rate Lungs: Clear Abdomen: Normal bowel sounds, Soft, No tenderness Extremities: No edema, Normal pulses Skin: No significant lesion Labs LABS LEFT VENTRICLE The left ventricle is normal size. There is normal left ventricular wall th ickness. The left ventricular systolic function is normal. The Ejection Fraction is 65%. There is normal LV segmental wall motion. Transmitral Doppler flow pattern is Grade III-reversible restrictive diastolic dysfunction. RIGHT VENTRICLE The right ventricle is mildly dilated. There is normal right ventricular wall thickness. ATRIA The left atrium is moderately dilated. The right atrium size is normal. The interatrial septum is intact with no evidence for an atrial septal defect or patent foramen ovale as noted on 2-D or Doppler imaging. AORTIC VALVE The aortic valve is calcified but opens well. Doppler and Color Flow revealed trace aortic regurgitation. There is no significant aortic valvular stenosis. Calculated aortic valve area is 1.6 cm2 with maximum pressure gradient of 10 mmHg and mean pressure gradient of 6 mmHg. MITRAL VALVE The mitral valve is normal in structure and function. There is no evidence of mitral valve prolapse. There is no mitral valve stenosis. Doppler and Color Flow revealed no mitral valve regurgitation noted. TRICUSPID VALVE The tricuspid valve is normal in structure and function. Doppler and Color Flow revealed trace tricuspid regurgitation with an estimated PAP of 33 mmHg. There is no tricuspid valve stenosis. PULMONIC VALVE The pulmonic valve is not well visualized. Doppler and Color Flow revealed no pulmonic valvular regurgitation. GREAT VESSELS The aortic root is normal in size. The IVC was not visualized. PERICARDIAL EFFUSION There is no evidence of significant pericardial effusion. Critical Notification Critical Value: No <Conclusion> The left ventricular systolic function is normal. The Ejection Fraction is 65%. There is normal LV segmental wall motion. Transmitral Doppler flow pattern is Grade III-reversible restrictive diastolic dysfunction. Trace tricuspid regurgitation with an estimated PAP of 33 mmHg. There is no evidence of significant pericardial effusion. Signed by : Florencio Chandler, Electronically Approved : 06/20/2020 08:55:14 DICTATED and SIGNED BY: FLORENCIO CHANDLER MD DATE: 06/19/20 [id number] Laboratory Tests Test 06/19/20 14:10 06/19/20 14:35 06/20/20 05:45 White Blood Count 8.3 x10^3/uL (4.0-11.0) Red Blood Count 4.33 x10^6/uL (3.50-5.40) Hemoglobin 14.0 g/dL (12.0-15.5) Hematocrit 42.2 % (36.0-47.0) Mean Corpuscular Volume 98 fL (79-100) Mean Corpuscular Hemoglobin 32 pg (25-35) Mean Corpuscular Hemoglobin Concent 33 g/dL (31-37) Red Cell Distribution Width 16.6 % (11.5-14.5) Platelet Count 363 x10^3/uL (140-400) Neutrophils (%) (Auto) 79 % (31-73) Lymphocytes (%) (Auto) 16 % (24-48) Monocytes (%) (Auto) 3 % (0-9) Eosinophils (%) (Auto) 1 % (0-3) Basophils (%) (Auto) 0 % (0-3) Neutrophils # (Auto) 6.6 x10^3/uL (1.8-7.7) Lymphocytes # (Auto) 1.3 x10^3/uL (1.0-4.8) Monocytes # (Auto) 0.3 x10^3/uL (0.0-1.1) Eosinophils # (Auto) 0.1 x10^3/uL (0.0-0.7) Basophils # (Auto) 0.0 x10^3/uL (0.0-0.2) Sodium Level 141 mmol/L (136-145) Potassium Level 3.7 mmol/L (3.5-5.1) Chloride Level 102 mmol/L (98-107) Carbon Dioxide Level 33 mmol/L (21-32) Anion Gap 6 (6-14) Blood Urea Nitrogen 16 mg/dL (7-20) Creatinine 1.3 mg/dL (0.6-1.0) Estimated GFR (Cockcroft-Gault) 39.4 BUN/Creatinine Ratio 12 (6-20) Glucose Level 131 mg/dL (70-99) Calcium Level 8.7 mg/dL (8.5-10.1) Total Bilirubin 0.5 mg/dL (0.2-1.0) Aspartate Amino Transf (AST/SGOT) 36 U/L (15-37) Alanine Aminotransferase (ALT/SGPT) 34 U/L (14-59) Alkaline Phosphatase 105 U/L (46-116) Total Protein 7.0 g/dL (6.4-8.2) Albumin 3.1 g/dL (3.4-5.0) Albumin/Globulin Ratio 0.8 (1.0-1.7) Triglycerides Level 106 mg/dL (0-150) Cholesterol Level 181 mg/dL (0-200) LDL Cholesterol, Calculated 99 mg/dL (0-100) VLDL Cholesterol, Calculated 21 mg/dL (0-40) Non-HDL Cholesterol Calculated 120 mg/dL (0-129) HDL Cholesterol 61 mg/dL (40-60) Cholesterol/HDL Ratio 3.0 Urine Collection Type Unknown Urine Color Yellow Urine Clarity Cloudy Urine pH 6.5 (<5.0-8.0) Urine Specific [place] 1.020 (1.000-1.030) Urine Protein 30 mg/dL (NEG-TRACE) Urine Glucose (UA) Negative mg/dL (NEG) Urine Ketones (Stick) Negative mg/dL (NEG) Urine Blood Small (NEG) Urine Nitrite Negative (NEG) Urine Bilirubin Negative (NEG) Urine Urobilinogen Dipstick 0.2 mg/dL (0.2 mg/dL) Urine Leukocyte Esterase Large (NEG) Urine RBC 6-10 /HPF (0-2) Urine WBC Tntc /HPF (0-4) Urine Bacteria Many /HPF (0-FEW) Assessment and Plan Assessmemt and Plan Problems Medical Problems: (1) Chest pain at rest Status: Acute Comment Review of Relevant I have reviewed the following items jane (where applicable) has been applied. Labs Laboratory Tests Test 06/18/20 12:42 06/18/20 16:30 06/18/20 18:10 06/19/20 14:10 White Blood Count 11.4 x10^3/uL (4.0-11.0) 8.3 x10^3/uL (4.0-11.0) Red Blood Count 4.67 x10^6/uL (3.50-5.40) 4.33 x10^6/uL (3.50-5.40) Hemoglobin 15.2 g/dL (12.0-15.5) 14.0 g/dL (12.0-15.5) Hematocrit 45.4 % (36.0-47.0) 42.2 % (36.0-47.0) Mean Corpuscular Volume 97 fL (79-100) 98 fL (79-100) Mean Corpuscular Hemoglobin 33 pg (25-35) 32 pg (25-35) Mean Corpuscular Hemoglobin Concent 33 g/dL (31-37) 33 g/dL (31-37) Red Cell Distribution Width 16.7 % (11.5-14.5) 16.6 % (11.5-14.5) Platelet Count 393 x10^3/uL (140-400) 363 x10^3/uL (140-400) Neutrophils (%) (Auto) 82 % (31-73) 79 % (31-73) Lymphocytes (%) (Auto) 12 % (24-48) 16 % (24-48) Monocytes (%) (Auto) 5 % (0-9) 3 % (0-9) Eosinophils (%) (Auto) 1 % (0-3) 1 % (0-3) Basophils (%) (Auto) 0 % (0-3) 0 % (0-3) Neutrophils # (Auto) 9.4 x10^3/uL (1.8-7.7) 6.6 x10^3/uL (1.8-7.7) Lymphocytes # (Auto) 1.4 x10^3/uL (1.0-4.8) 1.3 x10^3/uL (1.0-4.8) Monocytes # (Auto) 0.5 x10^3/uL (0.0-1.1) 0.3 x10^3/uL (0.0-1.1) Eosinophils # (Auto) 0.1 x10^3/uL (0.0-0.7) 0.1 x10^3/uL (0.0-0.7) Basophils # (Auto) 0.0 x10^3/uL (0.0-0.2) 0.0 x10^3/uL (0.0-0.2) Prothrombin Time 16.2 SEC (11.7-14.0) Prothromb Time International Ratio 1.3 (0.8-1.1) Activated Partial Thromboplast Time 39 SEC (24-38) Sodium Level 144 mmol/L (136-145) 141 mmol/L (136-145) Potassium Level 4.6 mmol/L (3.5-5.1) 3.7 mmol/L (3.5-5.1) Chloride Level 102 mmol/L (98-107) 102 mmol/L (98-107) Carbon Dioxide Level 30 mmol/L (21-32) 33 mmol/L (21-32) Anion Gap 12 (6-14) 6 (6-14) Blood Urea Nitrogen 14 mg/dL (7-20) 16 mg/dL (7-20) Creatinine 1.2 mg/dL (0.6-1.0) 1.3 mg/dL (0.6-1.0) Estimated GFR (Cockcroft-Gault) 43.2 39.4 BUN/Creatinine Ratio 12 (6-20) 12 (6-20) Glucose Level 92 mg/dL (70-99) 131 mg/dL (70-99) Calcium Level 9.0 mg/dL (8.5-10.1) 8.7 mg/dL (8.5-10.1) Magnesium Level 2.2 mg/dL (1.8-2.4) Total Bilirubin 0.5 mg/dL (0.2-1.0) 0.5 mg/dL (0.2-1.0) Aspartate Amino Transf (AST/SGOT) 28 U/L (15-37) 36 U/L (15-37) Alanine Aminotransferase (ALT/SGPT) 28 U/L (14-59) 34 U/L (14-59) Alkaline Phosphatase 129 U/L (46-116) 105 U/L (46-116) Troponin I Quantitative < 0.017 ng/mL (0.000-0.055) < 0.017 ng/mL (0.000-0.055) < 0.017 ng/mL (0.000-0.055) VD-Mol-A-Type Natriuretic Peptide 2824 pg/mL (0-449) Total Protein 7.8 g/dL (6.4-8.2) 7.0 g/dL (6.4-8.2) Albumin 3.3 g/dL (3.4-5.0) 3.1 g/dL (3.4-5.0) Albumin/Globulin Ratio 0.7 (1.0-1.7) 0.8 (1.0-1.7) Test 06/19/20 14:35 06/20/20 05:45 Triglycerides Level 106 mg/dL (0-150) Cholesterol Level 181 mg/dL (0-200) LDL Cholesterol, Calculated 99 mg/dL (0-100) VLDL Cholesterol, Calculated 21 mg/dL (0-40) Non-HDL Cholesterol Calculated 120 mg/dL (0-129) HDL Cholesterol 61 mg/dL (40-60) Cholesterol/HDL Ratio 3.0 Urine Collection Type Unknown Urine Color Yellow Urine Clarity Cloudy Urine pH 6.5 (<5.0-8.0) Urine Specific [place] 1.020 (1.000-1.030) Urine Protein 30 mg/dL (NEG-TRACE) Urine Glucose (UA) Negative mg/dL (NEG) Urine Ketones (Stick) Negative mg/dL (NEG) Urine Blood Small (NEG) Urine Nitrite Negative (NEG) Urine Bilirubin Negative (NEG) Urine Urobilinogen Dipstick 0.2 mg/dL (0.2 mg/dL) Urine Leukocyte Esterase Large (NEG) Urine RBC 6-10 /HPF (0-2) Urine WBC Tntc /HPF (0-4) Urine Bacteria Many /HPF (0-FEW) Laboratory Tests Test 06/19/20 14:10 06/19/20 14:35 06/20/20 05:45 White Blood Count 8.3 x10^3/uL (4.0-11.0) Red Blood Count 4.33 x10^6/uL (3.50-5.40) Hemoglobin 14.0 g/dL (12.0-15.5) Hematocrit 42.2 % (36.0-47.0) Mean Corpuscular Volume 98 fL (79-100) Mean Corpuscular Hemoglobin 32 pg (25-35) Mean Corpuscular Hemoglobin Concent 33 g/dL (31-37) Red Cell Distribution Width 16.6 % (11.5-14.5) Platelet Count 363 x10^3/uL (140-400) Neutrophils (%) (Auto) 79 % (31-73) Lymphocytes (%) (Auto) 16 % (24-48) Monocytes (%) (Auto) 3 % (0-9) Eosinophils (%) (Auto) 1 % (0-3) Basophils (%) (Auto) 0 % (0-3) Neutrophils # (Auto) 6.6 x10^3/uL (1.8-7.7) Lymphocytes # (Auto) 1.3 x10^3/uL (1.0-4.8) Monocytes # (Auto) 0.3 x10^3/uL (0.0-1.1) Eosinophils # (Auto) 0.1 x10^3/uL (0.0-0.7) Basophils # (Auto) 0.0 x10^3/uL (0.0-0.2) Sodium Level 141 mmol/L (136-145) Potassium Level 3.7 mmol/L (3.5-5.1) Chloride Level 102 mmol/L (98-107) Carbon Dioxide Level 33 mmol/L (21-32) Anion Gap 6 (6-14) Blood Urea Nitrogen 16 mg/dL (7-20) Creatinine 1.3 mg/dL (0.6-1.0) Estimated GFR (Cockcroft-Gault) 39.4 BUN/Creatinine Ratio 12 (6-20) Glucose Level 131 mg/dL (70-99) Calcium Level 8.7 mg/dL (8.5-10.1) Total Bilirubin 0.5 mg/dL (0.2-1.0) Aspartate Amino Transf (AST/SGOT) 36 U/L (15-37) Alanine Aminotransferase (ALT/SGPT) 34 U/L (14-59) Alkaline Phosphatase 105 U/L (46-116) Total Protein 7.0 g/dL (6.4-8.2) Albumin 3.1 g/dL (3.4-5.0) Albumin/Globulin Ratio 0.8 (1.0-1.7) Triglycerides Level 106 mg/dL (0-150) Cholesterol Level 181 mg/dL (0-200) LDL Cholesterol, Calculated 99 mg/dL (0-100) VLDL Cholesterol, Calculated 21 mg/dL (0-40) Non-HDL Cholesterol Calculated 120 mg/dL (0-129) HDL Cholesterol 61 mg/dL (40-60) Cholesterol/HDL Ratio 3.0 Urine Collection Type Unknown Urine Color Yellow Urine Clarity Cloudy Urine pH 6.5 (<5.0-8.0) Urine Specific [place] 1.020 (1.000-1.030) Urine Protein 30 mg/dL (NEG-TRACE) Urine Glucose (UA) Negative mg/dL (NEG) Urine Ketones (Stick) Negative mg/dL (NEG) Urine Blood Small (NEG) Urine Nitrite Negative (NEG) Urine Bilirubin Negative (NEG) Urine Urobilinogen Dipstick 0.2 mg/dL (0.2 mg/dL) Urine Leukocyte Esterase Large (NEG) Urine RBC 6-10 /HPF (0-2) Urine WBC Tntc /HPF (0-4) Urine Bacteria Many /HPF (0-FEW) Medications Current Medications Ondansetron HCl (Zofran) 4 mg PRN Q6HRS PRN IVP NAUSEA/VOMITING; Start 06/18/20 at 16:00 Al Hydroxide/Mg Hydroxide (Mylanta Plus Xs) 30 ml PRN Q3HRS PRN PO HEARTBURN / GAS; Start 06/18/20 at 16:00 Calcium Carbonate/ Glycine (Tums) 500 mg PRN Q3HRS PRN PO UPSET STOMACH Last administered on 06/18/20 22:28; Start 06/18/20 at 16:00 Morphine Sulfate (Morphine Sulfate) 2 mg PRN Q1HR PRN IV PAIN-SEE COMMENTS; Start 06/18/20 at 16:00 Acetaminophen/ Hydrocodone Bitart (Lortab 5/325) 1 tab PRN Q4HRS PRN PO MILD PAIN 1-3; Start 06/18/20 at 16:00 Acetaminophen (Tylenol) 650 mg PRN Q6HRS PRN PO Headaches, Temp > 101.5F; Start 06/18/20 at 16:00 Magnesium Hydroxide (Milk Of Magnesia) 2,400 mg PRN Q12HR PRN PO CONSTIPATION Last administered on 06/19/20 21:39; Start 06/18/20 at 16:00 Bisacodyl (Dulcolax Supp) 10 mg PRN DAILY PRN [place] CONSTIPATION; Start 06/18/20 at 16:00 Allopurinol (Zyloprim) 150 mg HS PO Last administered on 06/19/20 21:39; Start 06/18/20 at 21:00 Apixaban (Eliquis) 5 mg BID PO Last administered on 06/19/20 21:40; Start 06/18/20 at 21:00 Docusate Sodium (Colace) 100 mg DAILY PO Last administered on 06/19/20 09:56; Start 06/19/20 at 09:00 Donepezil HCl (Aricept) 10 mg DAILY PO Last administered on 06/19/20 09:56; Start 06/19/20 at 09:00 Furosemide (Lasix) 40 mg DAILY PO Last administered on 06/19/20 09:57; Start 06/19/20 at 09:00 Gabapentin (Neurontin) 300 mg TID PO Last administered on 06/19/20 21:39; Start 06/18/20 at 21:00 Magnesium Oxide (Magnesium Oxide) 400 mg TID PO Last administered on 06/19/20 21:00; Start 06/18/20 at 21:00 Methotrexate (Rheumatrex) 17.5 mg Morgan PO ; Start 06/24/20 at 09:00 Nystatin (Nystop) 1 celestine BID TP Last administered on 4/13/21at 21:39; Start 06/18/20 at 21:00 Polyethylene Glycol (miraLAX PACKET) 17 gm DAILY PO Last administered on 06/19/20 09:59; Start 06/19/20 at 09:00 Potassium Chloride (Klor-Con) 10 meq DAILY PO Last administered on 06/19/20 09:55; Start 06/19/20 at 09:00 Simvastatin (Zocor) 40 mg QHS PO Last administered on 06/19/20 21:39; Start 06/18/20 at 21:00 Citalopram Hydrobromide (CeleXA) 40 mg DAILY PO Last administered on 06/19/20 09:56; Start 06/19/20 at 09:00 Folic Acid (Folic Acid) 0.5 mg DAILY PO Last administered on 06/19/20 09:58; Start 06/19/20 at 09:00 Cetirizine HCl (ZyrTEC) 10 mg DAILY PO Last administered on 06/19/20 09:57; Start 06/19/20 at 09:00 Non-Formulary Medication (Melatonin ) 2 tab QHS PO ; Start 06/18/20 at 21:00; Status UNV Guaifenesin/ Codeine Phosphate (Robitussin Ac) 5 ml PRN Q6HRS PRN PO COUGH; Start 06/18/20 at 20:00 Zolpidem Tartrate (Ambien) 5 mg PRN QHS PRN PO INSOMNIA; Start 06/18/20 at 20:00 Info (Anti-Coagulation Monitoring By Pharmacy) 1 each PRN DAILY PRN KALYAN Bailey OMMENTS Last administered on 06/19/20at 09:05; Start 06/18/20 at 20:15 Active Scripts Active Nystop (Nystatin) 60 Gm Powder 1 [place] TP BID 14 Days Reported Zofran (Ondansetron Hcl) 4 Mg Tablet 1 Tab PO Q6HRS PRN Klor-Con 10 (Potassium Chloride) 10 Meq Tablet.er 1 Tab PO DAILY 30 Days Loratadine 10 Mg Tablet 1 Tab PO DAILY Guaifenesin Ac Cough Syrup (Guaifenesin/Codeine Phosphate) 473 Ml Liquid 5 Ml PO PRN Q6HRS PRN Glycolax (Polyethylene Glycol 3350) 119 Gm Powder 17 Gm PO DAILY Take according to instructions on printed sheet Folic Acid 0.4 Mg Tablet 0.4 Mg PO DAILY Colace (Docusate Sodium) 100 Mg Capsule 1 Cap PO DAILY 30 Days Allopurinol 100 Mg Tablet 150 Mg PO HS Gabapentin (Gabapentin) 300 Mg Capsule 300 Mg PO TID Magnesium Oxide 400 Mg Tablet 400 Mg PO TID Eliquis (Apixaban) 5 Mg Tablet 5 Mg PO BID Cranberry (Cranberry Fruit) 400 Mg Tablet 400 Mg PO BID Melatonin 3 Mg Tablet 2 Tab PO QHS Simvastatin 40 Mg Tablet 1 Tab PO QHS Donepezil Hcl 10 Mg Tablet 1 Tab PO DAILY Lasix (Furosemide) 40 Mg Tablet 1 Tab PO DAILY Escitalopram Oxalate 20 Mg Tablet 1 Tab PO DAILY Methotrexate (Methotrexate Sodium) 2.5 Mg Tablet 7 Tab PO WEEKLY Tylenol (Acetaminophen) 325 Mg Tablet 650 Mg PO Q4HRS PRN Vitals/I & O Vital Sign - Last 24 Hours 06/19/20 06/19/20 06/19/20 06/19/20 10:42 14:36 19:00 20:00 Temp 98.3 98.9 97.6 98.3 98.9 97.6 Pulse 61 57 62 Resp 16 16 16 B/P (MAP) 114/78 (90) 96/65 (75) 96/54 (68) Pulse Ox 92 95 96 O2 Delivery Room Air Room Air Room Air Room Air 06/19/20 06/20/20 22:03 02:04 Temp 97.7 97.7 97.7 97.7 Pulse 56 65 Resp 16 16 B/P (MAP) 115/67 (83) 113/58 (76) Pulse Ox 93 96 O2 Delivery Room Air Room Air Intake and Output 06/19/20 06/19/20 06/20/20 15:00 23:00 07:00 Intake Total 418 ml 280 ml 100 ml Output Total 400 ml 200 ml Balance 18 ml 280 ml -100 ml Justicifation of Admission Dx: Justifications for Admission: Justification of Admission Dx: Yes Angina: [place] Worsening of Sym DAPHNE SILVA MD Jun 20, 2020 08:35
--- NOTE | 2020-06-20 08:55 | CARD ---
MR#: [id number] Date of Study: 06/19/2020 Ordering Physician: JAIME JENSEN, Referring Physician: JAIME JENSEN, Tech: Raeann Najera, [facility] APPROVED REPORT EXAM: Two-dimensional and M-mode echocardiogram with Doppler and color Doppler. Other Information Quality : AverageHR: 60bpm INDICATION Chest Pain 2D DIMENSIONS RVDd3.8 (2.9-3.5cm)Left Atrium(2D)4.5 (1.6-4.0cm) IVSd1.0 (0.7-1.1cm)Aortic Root(2D)3.0 (2.0-3.7cm) LVDd4.1 (3.9-5.9cm)LVOT Diameter2.0 (1.8-2.4cm) PWd0.8 (0.7-1.1cm)LVDs1.9 (2.5-4.0cm) FS (%) 54.2 %SV64.2 ml LVEF(%)85.4 (>50%) Aortic Valve AoV Peak Nacho.156.0cm/sAoV VTI34.4cm AO Peak GR.9.7mmHgLVOT Peak Nacho.125.4cm/s AO Mean GR.6mmHgAVA (VMAX)2.48cm2 Mitral Valve MV E Zvaipkwx305.7cm/sMV DECEL [id number] MV A Ggugusud75.4cm/sE/A Ratio3.3 Pulmonary Valve PV Peak Bbutibkr57.3cm/s Tricuspid Valve TR P. [id number]/sRAP [id number] TR Peak Gr.[id number] LEFT VENTRICLE The left ventricle is normal size. There is normal left ventricular wall thickness. The left ventricu lar systolic function is normal. The Ejection Fraction is 65%. There is normal LV segmental wall cuauhtemoc on. Transmitral Doppler flow pattern is Grade III-reversible restrictive diastolic dysfunction. RIGHT VENTRICLE The right ventricle is mildly dilated. There is normal right ventricular wall thickness. ATRIA The left atrium is moderately dilated. The right atrium size is normal. The interatrial septum is int act with no evidence for an atrial septal defect or patent foramen ovale as noted on 2-D or Doppler i maging. AORTIC VALVE The aortic valve is calcified but opens well. Doppler and Color Flow revealed trace aortic regurgitat ion. There is no significant aortic valvular stenosis. Calculated aortic valve area is 1.6 cm2 with m aximum pressure gradient of 10 mmHg and mean pressure gradient of 6 mmHg. MITRAL VALVE The mitral valve is normal in structure and function. There is no evidence of mitral valve prolapse. There is no mitral valve stenosis. Doppler and Color Flow revealed no mitral valve regurgitation note d. TRICUSPID VALVE The tricuspid valve is normal in structure and function. Doppler and Color Flow revealed trace tricus pid regurgitation with an estimated PAP of 33 mmHg. There is no tricuspid valve stenosis. PULMONIC VALVE The pulmonic valve is not well visualized. Doppler and Color Flow revealed no pulmonic valvular regur gitation. GREAT VESSELS The aortic root is normal in size. The IVC was not visualized. PERICARDIAL EFFUSION There is no evidence of significant pericardial effusion. Critical Notification Critical Value: No <Conclusion> The left ventricular systolic function is normal. The Ejection Fraction is 65%. There is normal LV segmental wall motion. Transmitral Doppler flow pattern is Grade III-reversible restrictive diastolic dysfunction. Trace tricuspid regurgitation with an estimated PAP of 33 mmHg. There is no evidence of significant pericardial effusion. Signed by : Rafa Chandler, Electronically Approved : 06/20/2020 08:55:14
[2020-06-20] MEDS: NYSTATIN TOPICAL POWDER 15GM BOTTLE. TP SCH (09:00)
[2020-06-20] MEDS: POLYETHYLENE GLYCOL 3350 17 GM PACKET. PO SCH (09:00)
[2020-06-20] MEDS: CITALOPRAM 20 MG TABLET. PO SCH (10:28)
[2020-06-20] MEDS: DONEPEZIL HCL 10 MG TABLET. PO SCH (10:28)
[2020-06-20] MEDS: CETIRIZINE HCL 10 MG TABLET. PO SCH (10:28)
[2020-06-20] MEDS: APIXABAN 5 MG TABLET. PO SCH (10:28)
[2020-06-20] MEDS: MAGNESIUM OXIDE 400 MG TABLET PO SCH ×2 (10:29→17:47)
[2020-06-20] MEDS: POTASSIUM CHLORIDE 10 MEQ TABLET.ER. PO SCH (10:29)
[2020-06-20] MEDS: DOCUSATE SODIUM 100 MG CAPSULE. PO SCH (10:29)
[2020-06-20] MEDS: FUROSEMIDE 40 MG TABLET. PO SCH (10:29)
[2020-06-20] MEDS: GABAPENTIN 300 MG CAPSULE. PO SCH ×2 (10:29→17:47)
[2020-06-20] MEDS: FOLIC ACID 1 MG TABLET. PO SCH (10:30)
[2020-06-20 10:37] VITALS: BP 106/61
--- NOTE | 2020-06-20 13:35 | PDOC ---
GA GALARZA MOLDER PUNCH 06/20/20 1335: CARDIO Progress Notes Date and Time Date of Service 06/20/20 Time of Evaluation 1330 Subjective Subjective: No Chest Pain, No shortness of breath, No Palpitations Vitals Vitals Vital Signs Date Time Temp Pulse Resp B/P (MAP) Pulse Ox O2 Delivery O2 Flow Rate FiO2 06/20/20 10:37 98.2 65 16 106/61 (76) 94 Room Air 98.2 Weight Weight [ ] Input and Output Intake and Output Intake and Output 06/20/20 07:00 Intake Total 798 ml Output Total 600 ml Balance 198 ml Intake Oral 798 ml Output Urine Total 600 ml Laboratory Labs Laboratory Tests Test 06/19/20 14:10 06/19/20 14:35 06/20/20 05:45 White Blood Count 8.3 x10^3/uL (4.0-11.0) Red Blood Count 4.33 x10^6/uL (3.50-5.40) Hemoglobin 14.0 g/dL (12.0-15.5) Hematocrit 42.2 % (36.0-47.0) Mean Corpuscular Volume 98 fL (79-100) Mean Corpuscular Hemoglobin 32 pg (25-35) Mean Corpuscular Hemoglobin Concent 33 g/dL (31-37) Red Cell Distribution Width 16.6 % (11.5-14.5) Platelet Count 363 x10^3/uL (140-400) Neutrophils (%) (Auto) 79 % (31-73) Lymphocytes (%) (Auto) 16 % (24-48) Monocytes (%) (Auto) 3 % (0-9) Eosinophils (%) (Auto) 1 % (0-3) Basophils (%) (Auto) 0 % (0-3) Neutrophils # (Auto) 6.6 x10^3/uL (1.8-7.7) Lymphocytes # (Auto) 1.3 x10^3/uL (1.0-4.8) Monocytes # (Auto) 0.3 x10^3/uL (0.0-1.1) Eosinophils # (Auto) 0.1 x10^3/uL (0.0-0.7) Basophils # (Auto) 0.0 x10^3/uL (0.0-0.2) Sodium Level 141 mmol/L (136-145) Potassium Level 3.7 mmol/L (3.5-5.1) Chloride Level 102 mmol/L (98-107) Carbon Dioxide Level 33 mmol/L (21-32) Anion Gap 6 (6-14) Blood Urea Nitrogen 16 mg/dL (7-20) Creatinine 1.3 mg/dL (0.6-1.0) Estimated GFR (Cockcroft-Gault) 39.4 BUN/Creatinine Ratio 12 (6-20) Glucose Level 131 mg/dL (70-99) Calcium Level 8.7 mg/dL (8.5-10.1) Total Bilirubin 0.5 mg/dL (0.2-1.0) Aspartate Amino Transf (AST/SGOT) 36 U/L (15-37) Alanine Aminotransferase (ALT/SGPT) 34 U/L (14-59) Alkaline Phosphatase 105 U/L (46-116) Total Protein 7.0 g/dL (6.4-8.2) Albumin 3.1 g/dL (3.4-5.0) Albumin/Globulin Ratio 0.8 (1.0-1.7) Triglycerides Level 106 mg/dL (0-150) Cholesterol Level 181 mg/dL (0-200) LDL Cholesterol, Calculated 99 mg/dL (0-100) VLDL Cholesterol, Calculated 21 mg/dL (0-40) Non-HDL Cholesterol Calculated 120 mg/dL (0-129) HDL Cholesterol 61 mg/dL (40-60) Cholesterol/HDL Ratio 3.0 Urine Collection Type Unknown Urine Color Yellow Urine Clarity Cloudy Urine pH 6.5 (<5.0-8.0) Urine Specific [place] 1.020 (1.000-1.030) Urine Protein 30 mg/dL (NEG-TRACE) Urine Glucose (UA) Negative mg/dL (NEG) Urine Ketones (Stick) Negative mg/dL (NEG) Urine Blood Small (NEG) Urine Nitrite Negative (NEG) Urine Bilirubin Negative (NEG) Urine Urobilinogen Dipstick 0.2 mg/dL (0.2 mg/dL) Urine Leukocyte Esterase Large (NEG) Urine RBC 6-10 /HPF (0-2) Urine WBC Tntc /HPF (0-4) Urine Bacteria Many /HPF (0-FEW) Physical Exam HEENT: Neck Supple W Full Motion Chest: Symmetric LUNGS: Clear to Auscultation Heart: RRR Abdomen: Soft N/T Extremities: No Edema Neurology: alert, follow commands Assessment Assessment 1. Chest pain, resolved. AMI ruled out. Echo with preserved LV systolic function 2. AFIB, slow ventricular rate. Lowest 41. No pauses. ? chronic AFIB. On Eliquis for stroke prophylaxis 3. H/o PE 4. Accelerated hypertension; now controlled 5. Hyperlipidemia; statin 6. Dementia Recommendations Statin therapy Avoid AV gilbert blocking agents Eliquis for stroke prophylaxis Consider outpatient ischemic evaluation Supportive care Justicifation of Admission Dx: Justifications for Admission: Justification of Admission Dx: Yes Angina: Cres[place] Worsening of Sym NESSA NAVARRO MD 06/21/20 1023: CARDIO Progress Notes Plan Plan Late entry for 06/20/20 Pt. seen and examined. Agree with above DUMPER note Supportive care. GA GALARZA APRN Jun 20, 2020 13:35 NESSA NAVARRO MD Jun 21, 2020 10:23
[2020-06-20 15:00] VITALS: BP 110/55
--- NOTE | 2020-06-20 15:01 | PDOC3 ---
Discharge Summary Date of Admission: Jun 18, 2020 Date of Discharge: Jun 20, 2020 Follow-Up: 1-2 days Admitting Diagnosis comment: VTE Prophylaxis Ordered VTE Prophylaxis Devices: No VTE Pharmacological Prophylaxi: Yes Assessment/Plan Assessment/Plan Unstable angina BUTCH due to vasomotor nephropathy Elevated BNP Atrial fibrillation Dementia Moderate malnutrition moderate pulmonary hypertension. LABILE HTN CKD STAGE 3B Focal opacities at the lung bases which could be from atelectasis or infiltrate but would consider obtaining a follow-up to ensure this resolves to exclude neoplastic causes. Grade III-reversible restrictive diastolic dysfunction. by echo 4-14 uti Plan: Will admit patient and consult cardiology; continue to trend troponins NEG X 3 She had echocardiogram 12/07/2017 with normal left ventricular systolic function and ejection fraction 55-60%; will obtain limited echo. Resume home medications FEN - Cardiac diet PPX - Eliquis DNR Dispo - observation for above; patient unable to name surrogate decision-maker at this time. Chest pain, atypical. AMI ruled out. AFIB H/o PE Hypertension UA Avoid AV gilbert blocking agents Eliquis for stroke prophylaxis Consider outpatient ischemic evaluation po keflex Justifications for Admission Justifications for Admission Other Justification History of Present Illness History of Present Illness Identification/Chief Complaint Chief Complaint Chest pain Source Source: Chart review, Patient History of Present Illness History of Present Illness Patient is a 79-year-old female with past medical history A. fib, COPD, hypertension, hyperlipidemia, who presents from her shelter with complaints of sharp left-sided chest pain that started this morning around 9:00 AM. History is limited due to patient's dementia. When I inquired about patient's current chest pain, she states she "can't remember". She is alert to person and location, but not time. Initial troponin <0.017, EKG with no ST changes. Will admit patient for further medical management. Past Medical History Cardiovascular: HTN, Hyperlipidemia GI: No pertinent hx Heme/Onc: No pertinent hx Hepatobiliary: No pertinent hx Psych: Anxiety Rheumatologic: Gout, Rheumatoid arthritis Infectious disease: No pertinent hx Renal/: No pertinent hx Endocrine: No pertinent hx Past Surgical History Past Surgical History: Cholecystectomy, Tonsillectomy, Hysterectomy Family History Family History: Family History Unknown Social History Smoke: No ALCOHOL: none Drugs: None Current Problem List Problem List Problems Medical Problems: (1) Chest pain at rest Status: Acute Current Medications Current Medications Active Scripts Active Nystop (Nystatin) 60 Gm Powder 1 Celestine TP BID 14 Days [place]co 500+D Tablet (Calcium Carbonate/Vitamin D3) 1 Each Tablet 1 Tab PO BIDWMEALS 30 Days [Ceftriaxone Sodium] 1 GM Vial 1 Gm IVP Q24H 7 Days Colace (Docusate Sodium) 100 Mg Capsule 100 Mg PO BID 30 Days Reported Polyethylene Glycol 3350 17 Gm Powd.pack 17 Gm PO DAILY Bengay (Menthol) 113 Gm Gel..gram. 113 Gm TP PRN Q6HRS Allopurinol 100 Mg Tablet 150 Mg PO HS Gabapentin (Gabapentin) 300 Mg Capsule 300 Mg PO TID Magnesium Oxide 400 Mg Tablet 400 Mg PO TID Eliquis (Apixaban) 5 Mg Tablet 5 Mg PO BID Cranberry (Cranberry Fruit) 400 Mg Tablet 400 Mg PO BID Vitamin D3 (Cholecalciferol (Vitamin D3)) 1,000 Unit Tablet 2 Tab PO BID Melatonin 3 Mg Tablet 2 Tab PO QHS Simvastatin 40 Mg Tablet 1 Tab PO QHS Donepezil Hcl 10 Mg Tablet 1 Tab PO DAILY Duoneb 0.5-3(2.5) Mg/3 Ml (Albuterol/Ipratropium) 3 Ml Ampul.neb 3 Ml NEB QID Lasix (Furosemide) 40 Mg Tablet 1 Tab PO DAILY Escitalopram Oxalate 20 Mg Tablet 1 Tab PO DAILY Methotrexate (Methotrexate Sodium) 2.5 Mg Tablet 7 Tab PO WEEKLY Potassium Chloride (Potassium Chloride) 20 Meq Tablet.er 20 Meq PO DAILY Folic Acid 1 Mg Tablet 1 Tab PO DAILY Aspirin 81 Mg Tab.chew 1 Tab PO DAILY Tylenol (Acetaminophen) 325 Mg Tablet 650 Mg PO Q4HRS PRN Allergies Allergies: Coded Allergies: No Known Drug Allergies (Unverified , 05/03/13) ROS Review of System GENERAL: No history of weight change, weakness or fevers. SKIN: No bruising, hair changes or rashes. EYES: No blurred, double or loss of vision. NOSE AND THROAT: No history of nosebleeds, hoarseness or sore throat. HEART: Chest pain. Denies palpitations. LUNGS: Denies cough, hemoptysis, wheezing or shortness of breath. GASTROINTESTINAL: Denies nausea, vomiting, abdominal pain. GENITOURINARY: Denies dysuria, frequency, urgency, hematuria. NEUROLOGIC: Denies history of numbness, tingling, tremor or weakness. PSYCHIATRIC: Denies anxiety, denies depression. ENDOCRINE: No history of heat or cold intolerance, polyuria or polydipsia. EXTREMITIES: Denies muscle weakness, joint pain, pain on walking or stiffness. 4-13 D/W JENNY UA PENDING 06-20 echo reviewed Avoid AV gilbert blocking agents Eliquis for stroke prophylaxis Consider outpatient ischemic evaluation d/c planning 33 min Vitals Vitals Vital Signs Date Time Temp Pulse Resp B/P (MAP) Pulse Ox O2 Delivery O2 Flow Rate FiO2 06/20/20 02:04 97.7 65 16 113/58 (76) 96 Room Air 97.7 Physical Exam Physical Exam General: Alert, Oriented X3, Cooperative, No acute distress HEENT: PERRLA, EOMI Lungs: Clear to auscultation, Normal air movement Heart: RRR, no murmurs Cardiovascular: S1, S2 Abdomen: Normal bowel sounds, Soft, No tenderness Extremities: +1 pitting edema bilaterally. No clubbing, No cyanosis Skin: No rashes, No significant lesion Neuro: Normal speech, Normal tone, Sensation intact Psych/Mental Status: Mental status NL, Mood NL General: Alert, Cooperative, No acute distress, Other (oriented to person and place) Heart: Regular rate Lungs: Clear Abdomen: Normal bowel sounds, Soft, No tenderness Extremities: No edema, Normal pulses Skin: No significant lesion Labs LABS LEFT VENTRICLE The left ventricle is normal size. There is normal left ventricular wall thickness. The left ventricular systolic function is normal. The Ejection Fraction is 65%. There is normal LV segmental wall motion. Transmitral Doppler flow pattern is Grade III-reversible restrictive diastolic dysfunction. RIGHT VENTRICLE The right ventricle is mildly dilated. There is normal right ventricular wall thickness. ATRIA The left atrium is moderately dilated. The right atrium size is normal. The interatrial septum is intact with no evidence for an atrial septal defect or patent foramen ovale as noted on 2-D or Doppler imaging. AORTIC VALVE The aortic valve is calcified but opens well. Doppler and Color Flow revealed trace aortic regurgitation. There is no significant aortic valvular stenosis. Calculated aortic valve area is 1.6 cm2 with maximum pressure gradient of 10 mmHg and mean pressure gradient of 6 mmHg. MITRAL VALVE The mitral valve is normal in structure and function. There is no evidence of mitral valve prolapse. There is no mitral valve stenosis. Doppler and Color Flow revealed no mitral valve regurgitation noted. TRICUSPID VALVE The tricuspid valve is normal in structure and function. Doppler and Color Flow revealed trace tricuspid regurgitation with an estimated PAP of 33 mmHg. There is no tricuspid valve stenosis. PULMONIC VALVE The pulmonic valve is not well visualized. Doppler and Color Flow revealed no pulmonic valvular regurgitation. GREAT VESSELS The aortic root is normal in size. The IVC was not visualized. PERICARDIAL EFFUSION There is no evidence of significant pericardial effusion. Critical Notification Critical Value: No <Conclusion> The left ventricular systolic function is normal. The Ejection Fraction is 65%. There is normal LV segmental wall motion. Transmitral Doppler flow pattern is Grade III-reversible restrictive diastolic dysfunction. Trace tricuspid regurgitation with an estimated PAP of 33 mmHg. There is no evidence of significant pericardial effusion. Signed by : Rafa Chandler, Electronically Approved : 06/20/2020 08:55:14 FINAL DIAGNOSIS Problems Medical Problems: (1) Chest pain at rest Status: Acute Brief Hospital Course Ms. Colby is a 79 old [sex] who presented with [acute chf, chest pain] CONDITION AT DISCHARGE: Improved Discharge Medications Current Medications Ondansetron HCl (Zofran) 4 mg PRN Q6HRS PRN IVP NAUSEA/VOMITING; Start 06/18/20 at 16:00 Al Hydroxide/Mg Hydroxide (Mylanta Plus Xs) 30 ml PRN Q3HRS PRN PO HEARTBURN / GAS; Start 06/18/20 at 16:00 Calcium Carbonate/ Glycine (Tums) 500 mg PRN Q3HRS PRN PO UPSET STOMACH Last administered on 06/18/20at 22:28; Start 06/18/20 at 16:00 Morphine Sulfate (Morphine Sulfate) 2 mg PRN Q1HR PRN IV PAIN-SEE COMMENTS; Start 06/18/20 at 16:00 Acetaminophen/ Hydrocodone Bitart (Lortab 5/325) 1 tab PRN Q4HRS PRN PO MILD PAIN 1-3; Start 06/18/20 at 16:00 Acetaminophen (Tylenol) 650 mg PRN Q6HRS PRN PO Headaches, Temp > 101.5F; Start 06/18/20 at 16:00 Magnesium Hydroxide (Milk Of Magnesia) 2,400 mg PRN Q12HR PRN PO CONSTIPATION Last administered on 06/19/20at 21:39; Start 06/18/20 at 16:00 Bisacodyl (Dulcolax Supp) 10 mg PRN DAILY PRN NV CONSTIPATION; Start 06/18/20 at 16:00 Allopurinol (Zyloprim) 150 mg HS PO Last administered on 06/19/20 21:39; Start 06/18/20 at 21:00 Apixaban (Eliquis) 5 mg BID PO Last administered on 06/20/20 10:28; Start 06/18/20 at 21:00 Docusate Sodium (Colace) 100 mg DAILY PO Last administered on 06/20/20 10:29; Start 06/19/20 at 09:00 Donepezil HCl (Aricept) 10 mg DAILY PO Last administered on 06/20/20 10:28; Start 06/19/20 at 09:00 Furosemide (Lasix) 40 mg DAILY PO Last administered on 06/20/20 10:29; Start 06/19/20 at 09:00 Gabapentin (Neurontin) 300 mg TID PO Last administered on 06/20/20 10:29; Start 06/18/20 at 21:00 Magnesium Oxide (Magnesium Oxide) 400 mg TID PO Last administered on 06/20/20 10:29; Start 06/18/20 at 21:00 Methotrexate (Rheumatrex) 17.5 mg Morgan PO ; Start 06/24/20 at 09:00 Nystatin (Nystop) 1 celestine BID TP Last administered on 06/20/20 09:00; Start 06/18/20 at 21:00 Polyethylene Glycol (miraLAX PACKET) 17 gm DAILY PO Last administered on 06/19/20at 09:59; Start 06/19/20 at 09:00 Potassium Chloride (Klor-Con) 10 meq DAILY PO Last administered on 06/20/20 10:29; Start 06/19/20 at 09:00 Simvastatin (Zocor) 40 mg QHS PO Last administered on 06/19/20 21:39; Start 06/18/20 at 21:00 Citalopram Hydrobromide (CeleXA) 40 mg DAILY PO Last administered on 06/20/20 10:28; Start 06/19/20 at 09:00 Folic Acid (Folic Acid) 0.5 mg DAILY PO Last administered on 06/20/20 10:30; Start 06/19/20 at 09:00 Cetirizine HCl (ZyrTEC) 10 mg DAILY PO Last administered on 06/20/20at 10:28; Start 06/19/20 at 09:00 Non-Formulary Medication (Melatonin ) 2 tab QHS PO ; Start 06/18/20 at 21:00; Status UNV Guaifenesin/ Codeine Phosphate (Robitussin Ac) 5 ml PRN Q6HRS PRN PO COUGH; St art 06/18/20 at 20:00 Zolpidem Tartrate (Ambien) 5 mg PRN QHS PRN PO INSOMNIA; Start 06/18/20 at 20:00 Info (Anti-Coagulation Monitoring By Pharmacy) 1 each PRN DAILY PRN MC SEE COMMENTS Last administered on 06/19/20at 09:05; Start 06/18/20 at 20:15 Active Scripts Active Nystop (Nystatin) 60 Gm Powder 1 Celestine TP BID 14 Days Reported Zofran (Ondansetron Hcl) 4 Mg Tablet 1 Tab PO Q6HRS PRN Klor-Con 10 (Potassium Chloride) 10 Meq Tablet.er 1 Tab PO DAILY 30 Days Loratadine 10 Mg Tablet 1 Tab PO DAILY Guaifenesin Ac Cough Syrup (Guaifenesin/Codeine Phosphate) 473 Ml Liquid 5 Ml PO PRN Q6HRS PRN Glycolax (Polyethylene Glycol 3350) 119 Gm Powder 17 Gm PO DAILY Take according to instructions on printed sheet Folic Acid 0.4 Mg Tablet 0.4 Mg PO DAILY Colace (Docusate Sodium) 100 Mg Capsule 1 Cap PO DAILY 30 Days Allopurinol 100 Mg Tablet 150 Mg PO HS Gabapentin (Gabapentin) 300 Mg Capsule 300 Mg PO TID Magnesium Oxide 400 Mg Tablet 400 Mg PO TID Eliquis (Apixaban) 5 Mg Tablet 5 Mg PO BID Cranberry (Cranberry Fruit) 400 Mg Tablet 400 Mg PO BID Melatonin 3 Mg Tablet 2 Tab PO QHS Simvastatin 40 Mg Tablet 1 Tab PO QHS Donepezil Hcl 10 Mg Tablet 1 Tab PO DAILY Lasix (Furosemide) 40 Mg Tablet 1 Tab PO DAILY Escitalopram Oxalate 20 Mg Tablet 1 Tab PO DAILY Methotrexate (Methotrexate Sodium) 2.5 Mg Tablet 7 Tab PO WEEKLY Tylenol (Acetaminophen) 325 Mg Tablet 650 Mg PO Q4HRS PRN Vital Signs Vital Signs Date Time Temp Pulse Resp B/P (MAP) Pulse Ox O2 Delivery O2 Flow Rate FiO2 06/20/20 10:37 98.2 65 16 106/61 (76) 94 Room Air 98.2 Labs Laboratory Tests Test 06/18/20 16:30 06/18/20 18:10 06/19/20 14:10 06/19/20 14:35 Troponin I Quantitative < 0.017 ng/mL (0.000-0.055) < 0.017 ng/mL (0.000-0.055) White Blood Count 8.3 x10^3/uL (4.0-11.0) Red Blood Count 4.33 x10^6/uL (3.50-5.40) Hemoglobin 14.0 g/dL (12.0-15.5) Hematocrit 42.2 % (36.0-47.0) Mean Corpuscular Volume 98 fL (79-100) Mean Corpuscular Hemoglobin 32 pg (25-35) Mean Corpuscular Hemoglobin Concent 33 g/dL (31-37) Red Cell Distribution Width 16.6 % (11.5-14.5) Platelet Count 363 x10^3/uL (140-400) Neutrophils (%) (Auto) 79 % (31-73) Lymphocytes (%) (Auto) 16 % (24-48) Monocytes (%) (Auto) 3 % (0-9) Eosinophils (%) (Auto) 1 % (0-3) Basophils (%) (Auto) 0 % (0-3) Neutrophils # (Auto) 6.6 x10^3/uL (1.8-7.7) Lymphocytes # (Auto) 1.3 x10^3/uL (1.0-4.8) Monocytes # (Auto) 0.3 x10^3/uL (0.0-1.1) Eosinophils # (Auto) 0.1 x10^3/uL (0.0-0.7) Basophils # (Auto) 0.0 x10^3/uL (0.0-0.2) Sodium Level 141 mmol/L (136-145) Potassium Level 3.7 mmol/L (3.5-5.1) Chloride Level 102 mmol/L (98-107) Carbon Dioxide Level 33 mmol/L (21-32) Anion Gap 6 (6-14) Blood Urea Nitrogen 16 mg/dL (7-20) Creatinine 1.3 mg/dL (0.6-1.0) Estimated GFR (Cockcroft-Gault) 39.4 BUN/Creatinine Ratio 12 (6-20) Glucose Level 131 mg/dL (70-99) Calcium Level 8.7 mg/dL (8.5-10.1) Total Bilirubin 0.5 mg/dL (0.2-1.0) Aspartate Amino Transf (AST/SGOT) 36 U/L (15-37) Alanine Aminotransferase (ALT/SGPT) 34 U/L (14-59) Alkaline Phosphatase 105 U/L (46-116) Total Protein 7.0 g/dL (6.4-8.2) Albumin 3.1 g/dL (3.4-5.0) Albumin/Globulin Ratio 0.8 (1.0-1.7) Triglycerides Level 106 mg/dL (0-150) Cholesterol Level 181 mg/dL (0-200) LDL Cholesterol, Calculated 99 mg/dL (0-100) VLDL Cholesterol, Calculated 21 mg/dL (0-40) Non-HDL Cholesterol Calculated 120 mg/dL (0-129) HDL Cholesterol 61 mg/dL (40-60) Cholesterol/HDL Ratio 3.0 Test 06/20/20 05:45 Urine Collection Type Unknown Urine Color Yellow Urine Clarity Cloudy Urine pH 6.5 (<5.0-8.0) Urine Specific [place] 1.020 (1.000-1.030) Urine Protein 30 mg/dL (NEG-TRACE) Urine Glucose (UA) Negative mg/dL (NEG) Urine Ketones (Stick) Negative mg/dL (NEG) Urine Blood Small (NEG) Urine Nitrite Negative (NEG) Urine Bilirubin Negative (NEG) Urine Urobilinogen Dipstick 0.2 mg/dL (0.2 mg/dL) Urine Leukocyte Esterase Large (NEG) Urine RBC 6-10 /HPF (0-2) Urine WBC Tntc /HPF (0-4) Urine Bacteria Many /HPF (0-FEW) Laboratory Tests Test 06/20/20 05:45 Urine Collection Type Unknown Urine Color Yellow Urine Clarity Cloudy Urine pH 6.5 (<5.0-8.0) Urine Specific [place] 1.020 (1.000-1.030) Urine Protein 30 mg/dL (NEG-TRACE) Urine Glucose (UA) Negative mg/dL (NEG) Urine Ketones (Stick) Negative mg/dL (NEG) Urine Blood Small (NEG) Urine Nitrite Negative (NEG) Urine Bilirubin Negative (NEG) Urine Urobilinogen Dipstick 0.2 mg/dL (0.2 mg/dL) Urine Leukocyte Esterase Large (NEG) Urine RBC 6-10 /HPF (0-2) Urine WBC Tntc /HPF (0-4) Urine Bacteria Many /HPF (0-FEW) Allergies Allergies Coded Allergies Type Severity Reaction Last Updated Verified No Known Drug Allergies 05/03/13 No Disposition/Orders: Other (d/c to fdc care) Justicifation of Admission Dx: Justifications for Admission: Justification of Admission Dx: Yes Angina: [place] Worsening of Sym DAPHNE SILVA MD Jun 20, 2020 15:00
[2020-06-20] MEDS ORDERED: BISA10SU4 PR (15:05)
[2020-06-20] MEDS ORDERED: CEPH250C PO (15:05)
[2020-06-20] MEDS ORDERED: MAG30ORA2 PO (15:05)
--- NOTE | 2020-06-20 15:06 | SNU/HH DC ---
DISCHARGE ORDERS DISCHARGE INFORMATION: FINAL DIAGNOSIS Problems Medical Problems: (1) Chest pain at rest Status: Acute CONDITION ON DISCHARGE: Stable CODE STATUS: Code Status: Full LONG TERM: SNF STAY <30 DAYS: No HOSPICE: HOSPICE: No HOSPICE EVAL & TREAT: No POST DISCHARGE ORDERS: ACTIVITY ORDERS: Resume previous activity, Activity as tolerated WEIGHT BEARING STATUS: As tolerated DIET AFTER DISCHARGE: Dysphagia 2 WOUND/INCISION CARE: No wound care needed CHECKS AFTER DISCHARGE: CHECKS AFTER DISCHARGE: Check blood press - daily FOLLOW-UP: PHYSICIAN FOLLOW-UP: pcp at [facility] ADDITIONAL FOLLOW-UP: CARDIOLOGY ONE WEEK LAB ORDERS FOR FOLLOW-UP: CBC,CMP TREATMENT/EQUIPMENT ORDERS: ADAPTIVE EQUIPMENT NEEDED: Front wheeled walker RESPIRATORY EQUIPMENT NEEDED: Oxygen Physical Therapy For: Evalulation/Treatment Occupational Therapy For: Evaluation/Treatment Speech Language Pathology For: Evaluation/Treatment DISCHARGE MEDICATIONS: Home Meds Active Scripts Bisacodyl (BISACODYL) 10 Mg Supp.rect, 10 MG MT PRN DAILY PRN for CONSTIPATION for 30 Days, #10 SUPP.RECT Prov:DAPHNE SILVA MD 06/20/20 Mag Hydrox/Al Hydrox/Simeth (MAG-AL PLUS XS SUSPENSION) 30 Ml Oral.susp, 30 ML PO PRN Q3HRS PRN for HEARTBURN / GAS for 30 Days, #120 MISC Prov:DAPHNE SILVA MD 06/20/20 Cephalexin (CEPHALEXIN) 250 Mg Capsule, 500 MG PO Q12HR for uti for 10 Days, #40 CAP Prov:DAPHNE SILVA MD 06/20/20 Nystatin (NYSTOP) 60 Gm Powder, 1 BLAKE TP BID for RASH for 14 Days, #30 MISC Prov:DAPHNE SILVA MD 06/10/19 Reported Medications Ondansetron Hcl (ZOFRAN) 4 Mg Tablet, 1 TAB PO Q6HRS PRN for NAUSEA, #20 TAB 06/18/20 Potassium Chloride (KLOR-CON 10) 10 Meq Tablet.er, 1 TAB PO DAILY for supplement for 30 Days, #30 TAB 0 Refills 06/18/20 Loratadine (LORATADINE) 10 Mg Tablet, 1 TAB PO DAILY for allergies, #30 TAB 5 Refills 06/18/20 Guaifenesin/Codeine Phosphate (GUAIFENESIN AC COUGH SYRUP) 473 Ml Liquid, 5 ML PO PRN Q6HRS PRN for COUGH, LIQUID 06/18/20 Polyethylene Glycol 3350 (GLYCOLAX) 119 Gm Powder, 17 GM PO DAILY for constipation, #527 GM 0 Refills Take according to instructions on printed sheet 06/18/20 Folic Acid (FOLIC ACID) 0.4 Mg Tablet, 0.4 MG PO DAILY for SUPPLEMENT, TAB 06/18/20 Docusate Sodium (COLACE) 100 Mg Capsule, 1 CAP PO DAILY for constipation for 30 Days, #30 CAP 0 Refills 06/18/20 Allopurinol (ALLOPURINOL) 100 Mg Tablet, 150 MG PO HS for Gout, TAB 06/06/19 Gabapentin (GABAPENTIN ) 300 Mg Capsule, 300 MG PO TID, CAP 12/05/17 Magnesium Oxide (MAGNESIUM OXIDE) 400 Mg Tablet, 400 MG PO TID, TAB 12/05/17 Apixaban (ELIQUIS) 5 Mg Tablet, 5 MG PO BID, TAB 12/05/17 Cranberry Fruit (CRANBERRY) 400 Mg Tablet, 400 MG PO BID, TAB 12/05/17 Melatonin (MELATONIN) 3 Mg Tablet, 2 TAB PO QHS, #30 TAB 12/05/17 Simvastatin (SIMVASTATIN) 40 Mg Tablet, 1 TAB PO QHS, #30 TAB 5 Refills 12/05/17 Donepezil Hcl (DONEPEZIL HCL) 10 Mg Tablet, 1 TAB PO DAILY, #90 TAB 1 Refill 12/05/17 Furosemide (LASIX) 40 Mg Tablet, 1 TAB PO DAILY, #90 TAB 1 Refill 12/05/17 Escitalopram Oxalate (ESCITALOPRAM OXALATE) 20 Mg Tablet, 1 TAB PO DAILY, #30 TAB 5 Refills 12/05/17 Methotrexate Sodium (METHOTREXATE) 2.5 Mg Tablet, 7 TAB PO WEEKLY, #32 TAB 2 Refills 12/05/17 Acetaminophen (TYLENOL) 325 Mg Tablet, 650 MG PO Q4HRS PRN for FEVER, TAB 12/05/17 DAPHNE SILVA MD Jun 20, 2020 15:06
--- NOTE | 2020-06-20 20:43 | NUR ---
Patient transferred back to [facility] via stretcher at approximately 1845 on RA. Report given via telephone to JENNY Hedrick.
[2020-06-20] MEDS ORDERED: CEPHALEXIN 250 MG CAPSULE. PO SCH (21:00)
[2020-06-20] MEDS ORDERED: AMOXICILLIN/K CLAV 500/125MG TABLET. PO SCH (21:00)
[2020-06-24] MEDS ORDERED: METHOTREXATE SODIUM 2.5 MG TABLET PO SCH (09:00)
== END 2020-06-20 18:45 | DRG 302 ==
LOC: ER 12:04 → ED HOLD 15:17 → INTOOBSV 15:17 → 2 SOUTH 17:52 → OBSVTOIN 06-19 15:00
PROVIDERS: ADMIT Family Medicine; ATTEND Family Medicine
DX: I25.110 Atherosclerotic heart disease of native coronary artery with unstable angina pectoris (principal); N17.0 Acute kidney failure with tubular necrosis; E44.0 Moderate protein-calorie malnutrition; I13.0 Hypertensive heart and chronic kidney disease with heart failure and stage 1 through stage 4 chronic kidney disease, or unspecified chronic kidney disease; I48.20 Chronic atrial fibrillation, unspecified; J98.11 Atelectasis; N39.0 Urinary tract infection, site not specified; R07.89 Other chest pain; Z66 Do not resuscitate; E78.00 Pure hypercholesterolemia, unspecified; E78.5 Hyperlipidemia, unspecified; F03.90 Unspecified dementia, unspecified severity, without behavioral disturbance, psychotic disturbance, mood disturbance, and anxiety; I27.20 Pulmonary hypertension, unspecified; I50.9 Heart failure, unspecified; J44.9 Chronic obstructive pulmonary disease, unspecified; M06.9 Rheumatoid arthritis, unspecified; N18.32 Chronic kidney disease, stage 3b; M19.90 Unspecified osteoarthritis, unspecified site; F41.9 Anxiety disorder, unspecified; F32.9 Major depressive disorder, single episode, unspecified; Z79.01 Long term (current) use of anticoagulants; Z79.82 Long term (current) use of aspirin; Z79.899 Other long term (current) drug therapy; Z86.711 Personal history of pulmonary embolism; Z86.73 Personal history of transient ischemic attack (TIA), and cerebral infarction without residual deficits; Z90.710 Acquired absence of both cervix and uterus; Z90.49 Acquired absence of other specified parts of digestive tract; Z68.29 Body mass index [BMI] 29.0-29.9, adult
CPT/HCPCS: 36415; 71045; 80053; 80061; 81001; 83735; 83880; 84484; 85025; 85610; 85730; 87077; 87086; 87186; 93005; 93306; 99285; G0378; G0379